=== PATIENT | male | born 1960 | race Caucasian/White ===

== ENCOUNTER 2017-06-09 21:12 | Emergency (ER) | payer OTHER, MEDICAID ==
[~2017-06-09] VITALS: Ht 185.4 cm; Wt 106.6 kg
[~2017-06-09 21:12] MED LIST: ADDERALL 10 MG10 MG PO; ADVAIR HFA 230M12 GM INH; AMLODIPINE BESY10 MG PO; AUGMENTIN 875875 MG PO; AZITHROMYCIN 2250 MG PO; CEFTIN 250 MG250 MG PO; CLARITIN10 M2 PO; COMBIVENT RESPIM4 GM INH; COREG25 MG PO; DUONEB 2.5-0.5 M3 ML INH; FLONASE 0.05%50 MCG NASAL; FUROSEMIDE 20 M20 M1 PO; HYDROCODON-ACE1 EAC5 PO; HYDROCODONE-AP1 EAC6 PO; KLOR-CON 1010 MEQ PO; LASIX 20 MG TAB20 MG PO; LEVAQUIN 500 M500 M2 PO; LEVAQUIN 750 M750 MG PO; LISINOPRIL20 MG PO; MOBIC7.5 MG PO; NICOTINE TRANSD21 M1 TRANSDERM; NORCO 10-325 T1 EACH PO; PREDNISONE 10 M10 MG PO; PROTONIX40 M1 PO; SINGULAIR 10 MG10 M1 PO; TESSALON PERLE100 MG PO; TOPROL XL25 MG PO; TRAMADOL 50 MG50 MG PO; VOLTAREN GEL 1100 G2 TOP
[2017-06-09] MEDS ORDERED: NORCO 10-325 T1 EACH PO (21:30)
[2017-06-09 22:04] LABS: ABSOLUTE EOSINOPHILS 0.3 thou/uL (0.0-0.7); ABSOLUTE LYMPHOCYTES 2.7 thou/uL (0.8-5.3); ABSOLUTE MONOCYTES 0.7 thou/uL (0.0-1.2); ABSOLUTE NEUTROPHILS 5.1 thou/uL (1.6-8.1); BASOPHILS 0.2 %; EOSINOPHILS 3.6 %; HEMATOCRIT 38.8 % (42.0-52.0); HEMOGLOBIN 12.7 gm/dL (14.0-18.0); LYMPHOCYTES 30.7 %; MCH 31.2 pg (26.0-34.0); MCHC 32.8 g/dL (28.0-37.0); MONOCYTES 7.6 %; MPV 7.9 fl. (7.2-11.1); NUCLEATED RBCS 0 /100WBC; PLATELET COUNT* 334 thou/uL (150-400); POLYS 57.9 %; RBC 4.08 mil/uL (4.50-6.00); RDW-CV 16.5 % (10.5-14.5); WBC 8.8 thou/uL (4.0-11.0)
[2017-06-09 22:19] LABS: ANION GAP 12 mmol/L (7-16); BUN 12 mg/dL (7-18); CHLORIDE 105 mmol/L (98-107); CO2 25 mmol/L (21-32); CREATININE 1.2 mg/dL (0.6-1.3); GLUCOSE 119 mg/dL (70-99); POTASSIUM 3.5 mmol/L (3.5-5.1); SODIUM 142 mmol/L (136-145)
[2017-06-09 22:23] LABS: ALBUMIN 3.4 g/dL (3.4-5.0); ALKALINE PHOSPHATASE 96 U/L (46-116); LIPASE 77 U/L (73-393); MAGNESIUM 2.1 mg/dL (1.8-2.4); NT-PRO BRAIN NAT PEPTIDE 438 pg/mL (<300); SGOT 20 U/L (15-37); SGPT 28 U/L (30-65); TOTAL BILIRUBIN 0.2 mg/dL (<0.1-1.0); TOTAL PROTEIN 6.8 g/dL (6.4-8.2); TROPONIN-I LEVEL <0.06 ng/mL (<0.06)
[2017-06-09] MEDS ORDERED: PREDNISONE50 MG PO (22:43)
[2017-06-09] MEDS ORDERED: ZPAK PO (22:43)
[2017-06-09 22:55] VITALS: BP 135/70
--- NOTE | 2017-06-10 13:13 | EKG ---
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: : 1960 Requested By: Blas Bradley Order Number: [id number] MD: Bari Esquivel Measurements Intervals [place] Rate: 96 P: 60 ND: 141 QRS: 61 QRSD: 109 T: 57 QT: 375 QTc: 474 Interpretive Statements Sinus rhythm Probable left atrial enlargement Compared to ECG 02/17/2017 14:13:47 Sinus tachycardia no longer present Ventricular premature complex(es) no longer present Electronically Signed On 06-10-2017 13:13:28 GAUGE MACHINE OPERATOR by Bari Esquivel [email or web address] <ELECTRONICALLY SIGNED> By: Bari Esquivel MD, [facility] 06/10/17 1313 22 22 Bari Esquivel MD, FACC /EPI
== END 2017-06-09 22:55 | disposition home or self-care (01) ==
LOC: M.ERS 21:12
PROVIDERS: Emergency Medicine Emergency Medical Services
DX: J44.1 Chronic obstructive pulmonary disease with (acute) exacerbation (principal); I10 Essential (primary) hypertension; G89.29 Other chronic pain; M25.562 Pain in left knee; M25.512 Pain in left shoulder; M25.579 Pain in unspecified ankle and joints of unspecified foot; F17.210 Nicotine dependence, cigarettes, uncomplicated; Z90.89 Acquired absence of other organs

== ENCOUNTER 2017-07-12 08:47 | Inpatient (IN) | payer OTHER, MEDICAID ==
[~2017-07-12] VITALS: Ht 185.4 cm; Wt 147.0 kg
[~2017-07-12 08:47] MED LIST changes: +PREDNISONE50 MG PO; +ZPAK PO
[2017-07-12 08:51] VITALS: BP 192/128
[2017-07-12 09:20] LABS: ABSOLUTE BASOPHILS 0.1 thou/uL (0.0-0.2); ABSOLUTE EOSINOPHILS 0.3 thou/uL (0.0-0.7); ABSOLUTE MONOCYTES 0.8 thou/uL (0.0-1.2); ABSOLUTE NEUTROPHILS 8.5 thou/uL (1.6-8.1); BASOPHILS 0.9 %; EOSINOPHILS 2.4 %; HEMATOCRIT 39.4 % (42.0-52.0); HEMOGLOBIN 12.8 gm/dL (14.0-18.0); LYMPHOCYTES 17.5 %; MCH 30.2 pg (26.0-34.0); MCHC 32.6 g/dL (28.0-37.0); MCV 92.7 fL (80.0-100.0); MONOCYTES 6.6 %; MPV 6.8 fl. (7.2-11.1); NUCLEATED RBCS 0 /100WBC; PLATELET COUNT* 358 thou/uL (150-400); POLYS 72.6 %; RBC 4.25 mil/uL (4.50-6.00); RDW-CV 16.9 % (10.5-14.5); WBC 11.7 thou/uL (4.0-11.0)
[2017-07-12 09:29] LABS: ANION GAP 9 mmol/L (7-16); BUN 16 mg/dL (7-18); CALCIUM 8.8 mg/dL (8.5-10.1); CHLORIDE 102 mmol/L (98-107); CO2 29 mmol/L (21-32); CREATININE 1.3 mg/dL (0.6-1.3); GLUCOSE 103 mg/dL (70-99); SODIUM 140 mmol/L (136-145)
[2017-07-12 09:39] LABS: ALBUMIN 3.5 g/dL (3.4-5.0); ALKALINE PHOSPHATASE 119 U/L (46-116); LIPASE 81 U/L (73-393); NT-PRO BRAIN NAT PEPTIDE 2231 pg/mL (<300); SGOT 16 U/L (15-37); SGPT 23 U/L (30-65); TOTAL BILIRUBIN 0.7 mg/dL (<0.1-1.0); TOTAL PROTEIN 6.8 g/dL (6.4-8.2); TROPONIN-I LEVEL <0.06 ng/mL (<0.06)
[2017-07-12 10:47] VITALS: BP 183/115
[2017-07-12 11:00] VITALS: BP 197/101
--- NOTE | 2017-07-12 11:00 | NUR ---
RECEIVED REOPRT. ASSUMED CARE OF PT AT 0730. VSS. CARDIAC MONITORING IN PLACE ST. ADMISSION AND HISTORY AND ASSESSMENT COMPLETED CHARTED. PT ALERT AND ORIENTED. PT ON 2L INITIALLY BUT REMOVED O2. PT DOES HAVE EXERTIONAL DYSPNEA. PT'S O2 SAT 94% ON RA. PT REPORTS BILATERAL LE PAIN. PT REPORTS HE TAKES HYDROCODONE FOR THIS NORMALLY. IV ABX INFUSING AT THIS TIME. PT OREINTED TO ROOM AND CALL LLIHGT. PT UP AD MACIEL IN ROOM. PT INFORMED OF PLAN OF CARE. PT COMMUNICATES UNDERSTANDING. CALL LIGHT IS WITHIN REACH. WILL CONTINUE TO MONITOR FOR DURATION OF SHIFT.
[2017-07-12 11:55] VITALS: BP 129/26
[2017-07-12 12:46] LABS: INFLUENZA A ANTIGEN None Detected (None Detect); INFLUENZA B ANTIGEN None Detected (None Detect)
[2017-07-12 13:44] LABS: BE 2.3 mmol/L (-2 to +3); HCO3 25.6 mmol/L (22.0-26.0); PCO2 35.7 mmHg (35.0-45.0); PO2 67.9 mmHg (75.0-100.0); pH 7.473 (7.340-7.450)
[2017-07-12] MEDS ORDERED: COREG25 MG PO (14:10)
[2017-07-12] MEDS ORDERED: SERTRALINE HCL50 MG PO (14:11)
[2017-07-12] MEDS ORDERED: MOBIC7.5 MG PO (14:12)
[2017-07-12 15:37] VITALS: BP 183/94
--- NOTE | 2017-07-12 16:01 | 2DMMODE ---
[place] [address] 2 D/M-MODE ECHOCARDIOGRAM Name: AKI VIEIRA Room: [address] IN [facility]#: [id number] Admission: 07/12/17 Attend Phys: Kwan Cohn, Discharge: Date of : 62 Date of Service: 07/12/17 1601 Report #: [id number] THIS REPORT FOR: //name// APPROVED REPORT Study performed: 07/12/2017 11:57:31 EXAM: Comprehensive 2D, Doppler, and color-flow Echocardiogram Patient Location: In-Patient Room #: 200 Status: routine BSA: 2.63 HR: 107 bpm BP: 129/26 mmHg Rhythm: NSR Other Information Technically limited study due to body habitus, body habitus. Indications Congestive Heart Failure COPD Dyspnea Echo Enhancing Agent Indication: Endocardial border delineation Agent(s) / Amount(s) Used: Optison 3 cc 2D Dimensions LVEF(%): 57.07 (>50%) IVSd: 12.35 (7-11mm) LVOT Diam: 23.76 (18-24mm) LVDd: 61.75 mm PWd: 11.63 (7-11mm) Ascending Ao: 37.97 (22-36mm) LVDs: 42.88 (25-40mm) Aortic Root: 38.63 mm Shultz's LVEF: 57.07 % Volumes Left Atrial Volume (Systole) LA ESV Index: 28.90 mL/m2 Aortic Valve AoV Peak Wilman.: 1.63 m/s AO Peak Gr.: 10.65 mmHg LVOT Max P[place]66 [place] [address] 2 D/M-MODE ECHOCARDIOGRAM Name: ISHAAKI Ariane Room: [address] IN [facility]#: [id number] Admission: 07/12/17 Attend Phys: Kwan Cohn, Discharge: Date of : 62 Date of Service: 07/12/17 1601 Report #: [id number] Mean Gr.: 6.36 mmHg LVOT Mean P.51 mmHg LVOT Max V: 1.29 m/s AO V2 VTI: 30.58 cm LVOT Mean V: 0.88 m/s AYLIN (VTI): 2.92 cm2 LVOT V1 VTI: 20.15 cm TDI Medial E' Wilman.: 0.15 m/s Lateral E' Wilman.: 0.18 m/s Pulmonary Valve PV Peak Wilman.: 1.27 m/s PV Peak Gr.: 6.49 mmHg Left Ventricle The left ventricle is normal size. There is normal LV segmental wall motion. Mild concentric left ventricular hypertrophy. Left ventricular systolic function is normal. LVEF is 50-55%. Transmitral Doppler flow pattern suggests impaired LV relaxation. Right Ventricle The right ventricle is normal size. The right ventricular systolic function is normal. Atria The left atrium size is normal. The right atrium size is normal. Aortic Valve The aortic valve is normal in structure. No aortic regurgitation is present. There is no aortic valvular stenosis. Mitral Valve The mitral valve is normal in structure. Trace mitral regurgitation. No evidence of mitral valve stenosis. Tricuspid Valve The tricuspid valve is normal in structure. There is no tricuspid valve regurgitation noted. Pulmonic Valve The pulmonary valve is normal in structure. There is no pulmonic valvular regurgitation. Great Vessels The aortic root is normal in size. IVC is normal in size and collapses with >50% [place] [address] 2 D/M-MODE ECHOCARDIOGRAM Name: AKI VIEIRA Room: [address]#: [id number] Admission: 07/12/17 Attend Phys: Kwan Cohn, Discharge: Date of : 62 Date of Service: 07/12/17 1601 Report #: [id number] Pericardium There is no pericardial effusion. <Conclusion> The left ventricle is normal size. Mild concentric left ventricular hypertrophy. Left ventricular systolic function is normal. LVEF is 50-55%. Transmitral Doppler flow pattern suggests impaired LV relaxation. Trace mitral regurgitation. <ELECTRONICALLY SIGNED> By: Tone Ford MD, FACC 07/12/17 1601 160 160 Tone Ford MD, FAC /INF
--- NOTE | 2017-07-12 16:28 | NUR ---
PT'S BP REMAINS ELEVATED. PT'S HOME MEDS VERIFIED WITH HIS PHARMACY. DR. NAVAS NOTIFIED OF MEDICATION UPDATE. ASKED DR. NAVAS IF PT'S LASIX NEEDED TO BE SCHEDULED OR PRN. DR. MOBLEY STATES HE WILL RE-EVALUATE IT IN THE AM. PT REMIANS ON RA. IV SALINE LOCKED. PT'S PAIN WELL MANAGED WITH PO PAIN MEDS. PT IS UP INDEPENDENTLY IN ROOM AND IN HALLWAY. PT PROGRESSING TOWARDS GOAL. PT REMAINS INFORMED OF PLAN OF CARE. CALL LIGHT IS WITHIN REACH. WILL CONTINUE TO MONTIOR FOR DURAITON OF SHFIT.
--- NOTE | 2017-07-12 16:36 | EKG ---
[place] [address] ELECTROCARDIOGRAM REPORT Name: AKI VIEIRA Room: [address] ADM IN [facility]#: [id number] Admission: 07/12/17 Attend Phys: Kwan Cohn MD Discharge: Date of : 62 Report #: [id number] THIS REPORT FOR: //name// [facility] ED Test Date: 2017-07-12 Test Time: 08:57:36 Pat Name: AKI VIEIRA Department: Room: [facility] Gender: M Basin Tender: STUDENT : 1960 Requested By: Aki Ochoa Order Number: [id number] MD: Tone Ford Measurements Intervals [place] Rate: 110 P: 63 MN: 150 QRS: 53 QRSD: 88 T: 50 QT: 344 QTc: 466 Interpretive Statements Sinus tachycardia Ventricular trigeminy Borderline ST elevation, anterolateral leads Baseline wander in lead(s) I,II,III,aVR,aVF,V1,V2,V3,V4,V5 Compared to ECG 06/09/2017 21:23:32 Ventricular premature complex(es) now present ST (T wave) deviation now present Electronically Signed On 07-12-2017 16:35:59 ENGINEERING OPERATOR by Tone Ford [email or web address] <ELECTRONICALLY SIGNED> By: Tone Ford MD, [facility] 07/12/17 1635 0857 0857 Tone Ford MD, [facility] /EPI
[2017-07-12 19:07] LABS: BE -0.3 mmol/L (-2 to +3); HCO3 23.9 mmol/L (22.0-26.0); PCO2 37.8 mmHg (35.0-45.0); PO2 83.6 mmHg (75.0-100.0); pH 7.419 (7.340-7.450)
[2017-07-12 19:16] LABS: ALBUMIN 3.7 g/dL (3.4-5.0); CREATININE 1.6 mg/dL (0.6-1.3); POTASSIUM 4.6 mmol/L (3.5-5.1); TOTAL BILIRUBIN 0.6 mg/dL (<0.1-1.0); TOTAL PROTEIN 7.5 g/dL (6.4-8.2)
[2017-07-12 19:20] VITALS: BP 176/89
[2017-07-12] MEDS ORDERED: [UNRECOGNIZED DRUG - OTHER] PO (20:08)
[2017-07-12] MEDS ORDERED: FLONASE 0.05%50 MCG INH (20:08)
[2017-07-13] VITALS: BP 152/108
[2017-07-13 03:25] VITALS: BP 151/111
[2017-07-13 05:14] LABS: HEMATOCRIT 42.2 % (42.0-52.0); HEMOGLOBIN 13.7 gm/dL (14.0-18.0); MCHC 32.6 g/dL (28.0-37.0); MCV 92.1 fL (80.0-100.0); MPV 7.7 fl. (7.2-11.1); NUCLEATED RBCS 0 /100WBC; PLATELET COUNT* 428 thou/uL (150-400); RBC 4.58 mil/uL (4.50-6.00); RDW-CV 17.3 % (10.5-14.5); WBC 11.2 thou/uL (4.0-11.0)
[2017-07-13 05:38] LABS: ANION GAP 9 mmol/L (7-16); BUN 23 mg/dL (7-18); CALCIUM 9.3 mg/dL (8.5-10.1); CHLORIDE 101 mmol/L (98-107); CO2 28 mmol/L (21-32); CREATININE 1.2 mg/dL (0.6-1.3); GLUCOSE 164 mg/dL (70-99); NT-PRO BRAIN NAT PEPTIDE 1680 pg/mL (<300); POTASSIUM 4.4 mmol/L (3.5-5.1); SODIUM 138 mmol/L (136-145); TROPONIN-I LEVEL <0.06 ng/mL (<0.06)
[2017-07-13 06:03] LABS: ABSOLUTE LYMPHOCYTES 0.9 thou/uL (0.8-5.3); ABSOLUTE MONOCYTES 0.1 thou/uL (0.0-1.2); ABSOLUTE NEUTROPHILS 10.2 thou/uL (1.6-8.1); ANISOCYTOSIS 1+; MACROCYTES 1+; PLATELET ESTIMATE INCREASED; POIKILOCYTOSIS 1+
--- NOTE | 2017-07-13 06:07 | NUR ---
ASSUMED CARE AT 1920, ASSESSMENT CHARTED. PATIENT ALERT/ORIENTED X4, SITTING UP IN BED. ON TELE, SR. WEARING OXYGEN 2L/NC, SOB NOTED WITH EXERTION, SATS 96%. REMOVING OXYGEN AT TIMES PRN. SL INTACT TO RIGHT FOREARM, FLUSHES WELL. UP AD MACIEL IN ROOM. VOIDING PER URINAL. DENIES NEEDS. STATES HAVING PAIN TO BILATERAL LEGS, DR. MCCAULEY ON FLOOR, ORDERS RECEIVED. MEDS PER MAR. HS SNACK GIVEN. BP ELEVATED, PRN MEDS GIVEN. REFUSING SCD'S. CALL LIGHT WITHIN REACH, ENCOURAGED TO CALL FOR NEEDS.
--- NOTE | 2017-07-13 06:11 | NUR ---
PATIENT PROGRESSING TOWARD GOALS. PATIENT ABLE TO REST SOME AND STATES THAT HIS BREATHING IS BETTER TOO, LESS EXPIRATORY WHEEZING NOTED. UP AD MACIEL. WILL MONITOR.
--- NOTE | 2017-07-13 07:15 | NUR ---
CHANGE OF SHIFT, BEDSIDE REPORT GIVEN ASSUMED PATIENT CARE PATIENT SEEN AT BEDSIDE, NO REQUESTS
[2017-07-13 08:00] VITALS: BP 139/75
[2017-07-13 12:00] VITALS: BP 149/96
--- NOTE | 2017-07-13 13:57 | NUR ---
CM ASSESSMENT; Pt is A&O. Resides at home with family. Independent with ADLS. Pt has home neb. No hx of HH or SNF. Goal is to return home once medically stable for dc. Following.
[2017-07-13 16:06] VITALS: BP 142/94
[2017-07-13 19:30] VITALS: BP 144/89
[2017-07-14 00:07] VITALS: BP 154/80
[2017-07-14 04:00] VITALS: BP 137/82
--- NOTE | 2017-07-14 05:04 | NUR ---
ASSUMED CARE AT 1930, ASSESSMENT CHARTED. PATIENT ALERT/ORIENTED X4, SITTING UP IN BED WATCHING TV. UP AD MACIEL IN ROOM. DENIES NEEDS. STATES HAVING PAIN TO HEAD/LEGS, RATES 10/10, MEDS PER MAR WITH PARTIAL RELIEF NOTED. REFUSING SCD'S. HS SNACK GIVEN. CALL LIGHT WITHIN REACH, ENCOURAGED TO CALL FOR NEEDS.
[2017-07-14 05:08] LABS: ABSOLUTE LYMPHOCYTES 0.6 thou/uL (0.8-5.3); ABSOLUTE MONOCYTES 0.4 thou/uL (0.0-1.2); ABSOLUTE NEUTROPHILS 17.2 thou/uL (1.6-8.1); BASOPHILS 0.1 %; HEMATOCRIT 39.1 % (42.0-52.0); HEMOGLOBIN 12.6 gm/dL (14.0-18.0); MCH 30.3 pg (26.0-34.0); MCHC 32.1 g/dL (28.0-37.0); MCV 94.2 fL (80.0-100.0); MONOCYTES 2.4 %; NUCLEATED RBCS 0 /100WBC; PLATELET COUNT* 360 thou/uL (150-400); POLYS 94.5 %; RBC 4.15 mil/uL (4.50-6.00); RDW-CV 17.1 % (10.5-14.5); WBC 18.2 thou/uL (4.0-11.0)
[2017-07-14 05:23] LABS: ALBUMIN 3.1 g/dL (3.4-5.0); CALCIUM 8.8 mg/dL (8.5-10.1); CREATININE 1.4 mg/dL (0.6-1.3); POTASSIUM 4.4 mmol/L (3.5-5.1); TOTAL BILIRUBIN 0.3 mg/dL (<0.1-1.0); TOTAL PROTEIN 6.5 g/dL (6.4-8.2)
--- NOTE | 2017-07-14 07:17 | NUR ---
PATIENT SITTING UP IN BED WITH RT AT BEDSIDE. REPORT GIVEN TO ONCOMING NURSE. WILL MONITOR.
[2017-07-14 08:40] VITALS: BP 119/90
[2017-07-14 12:00] VITALS: BP 131/61
--- NOTE | 2017-07-14 15:46 | NUR ---
RECEIVED REPORT. ASSUMED CARE OF PT AT 0730. PT A&0 X4. VSS. O2 SAT 95% ON RA. METALLURGICAL OR MATERIALS TECHNICIAN IN PLACE TRACING SR WITH OCCASIONAL PVC'S. AM ASSESSMENT AND VITALS COMPLETED CHARTED. IV SALINE LOCKED. PT REPORTS PAIN IN BILAT KNEES AND BACK. PT RECEIVED PO PAIN MEDICATION WITH PARTIAL RELIEF. PT STATES HE HAS CHRONIC PAIN. PT EATING AND DRINKING WITHOUT ISSUE. PT UP AD MACIEL TO BATHROOM, VOIDING WITHOUT ISSUE. BM X1. PT PROGRESSING TOWARDS GOALS. LOW FALL RISK PRECATUTIONS IN PLACE. CALL LIGHT IS WITHIN REACH. WILL CONTINUE TO MONITOR.
[2017-07-14 17:54] VITALS: BP 124/80
--- NOTE | 2017-07-14 19:38 | NUR ---
VSS. O2 SAT >90% ON RA. A&O X4. PATTERNMAKER PLASTER REMAINS IN PLACE WITH NO CHANGES THIS SHIFT. IV SALINE LOCKED. PT CONTINUES TO REPORT BILATERAL KNEE AND BACK PAIN; PO PAIN MEDICATION GIVEN WITH RELIEF, BUT PT REPORTS THE RELIEF IS "SHORT LIVED". PT EATING AND DRINKING WITHOUT ISSUE. UP AD MACIEL TO THE BATHROOM, VOIDING WITHOUT ISSUE. BLE REMAIN EDEMATOUS, 2+. PT PROGRESSING TOWARDS GOALS. LOW FALL RISK PRECAUTIONS ARE IN PLACE. CALL LIGHT IS WITHIN REACH. HOURLY ROUNDING PERFORMED.
[2017-07-14 19:40] VITALS: BP 156/89
[2017-07-15 00:04] VITALS: BP 162/89
[2017-07-15 04:00] VITALS: BP 149/76
[2017-07-15 05:18] LABS: ABSOLUTE LYMPHOCYTES 0.5 thou/uL (0.8-5.3); ABSOLUTE MONOCYTES 0.5 thou/uL (0.0-1.2); HEMATOCRIT 39.2 % (42.0-52.0); HEMOGLOBIN 12.5 gm/dL (14.0-18.0); MCH 30.1 pg (26.0-34.0); MCHC 31.9 g/dL (28.0-37.0); MCV 94.4 fL (80.0-100.0); MONOCYTES 2.9 %; MPV 7.9 fl. (7.2-11.1); NUCLEATED RBCS 0 /100WBC; PLATELET COUNT* 343 thou/uL (150-400); POLYS 94.1 %; RBC 4.15 mil/uL (4.50-6.00); RDW-CV 17.2 % (10.5-14.5)
[2017-07-15 05:25] LABS: ALBUMIN 3.2 g/dL (3.4-5.0); CALCIUM 8.6 mg/dL (8.5-10.1); CREATININE 1.2 mg/dL (0.6-1.3); POTASSIUM 4.8 mmol/L (3.5-5.1); TOTAL BILIRUBIN 0.3 mg/dL (<0.1-1.0); TOTAL PROTEIN 6.5 g/dL (6.4-8.2)
--- NOTE | 2017-07-15 06:44 | NUR ---
PT A&O X 4 CALM COOPERITVE. UP ADLIB. SR ON THE MONITOR. PAIN IN JOINTS GIVEN MEDICATION WITH PARTIAL RELEIF NOTED. RA. VITALS WNL. HOURLY ROUNDING FOR SAFEY.
[2017-07-15 08:15] VITALS: BP 163/85
--- NOTE | 2017-07-15 10:27 | NUR ---
RECEIVED RPEORT. ASSUMED CARE OF PT AT 0730. PT A&OX4. VSS. O2 SAT 94% ON RA. PT LUNGS ARE WHEEZY THROUGHOUT; PT SHOWING EXERTIONAL DYSPNEA. PLAYBACK OPERATOR IN PLACE TRACING SR. AM ASSESSMENT AND VITALS COMPLETED CHARTED. IV SALINE LOCKED. PT REPORTS KNEE AND BACK PAIN AT 10/10, RECEIVED PO PAIN MEDICATION WITH PARTIAL RELIEF THIS AM. PT STATES HE FEELS READY TO DISCHARGE. PT INFORMED OF PLAN OF CARE, PT COMMUNICATES UNDERSTANDING. PT EATING AND DRINKING WITHOUT ISSUE. PT UP AD MACIEL TO THE BATHROOM TO VOID, NO ISSUES. BLE EDEMA 2+ NOTED, BUT PT IS LESS EDEMATOUS THAN YESTERDAY. LOW FALL RISK PRECATUTIONS ARE IN PLACE. CALL LIGHT IS WITHIN REACH. WILL CONTINUE TO MONITOR.
[2017-07-15] MEDS ORDERED: LASIX 40 MG TAB40 M1 PO (11:06)
[2017-07-15] MEDS ORDERED: ZITHROMAX250 MG PO (11:11)
[2017-07-15] MEDS ORDERED: KEFLEX500 M1 PO (11:12)
[2017-07-15] MEDS ORDERED: PREDNISONE 10 M10 MG PO (11:19)
[2017-07-15] MEDS ORDERED: NORCO 10-325 T1 EAC1 PO (11:20)
[2017-07-15 11:26] VITALS: BP 163/85
[2017-07-15 11:58] VITALS: BP 169/89
[2017-07-15] MEDS ORDERED: SINGULAIR 10 MG10 M1 PO (12:23)
--- NOTE | 2017-07-15 12:44 | NUR ---
DISCHARGE ORDERS RECIEVED. DISCHARGE COMPLETED CHARTED. DISCHARGE SUMMARY AND CARE NOTES GONE OVER WITH THE PT, PT COMMUNICATES UNDERSTANDING. SCRIPTS GIVEN. CARE NOTES GIVEN. IV AND TELEPHONE DIRECTORY DISTRIBUTOR DRIVER REMOVED. VSS AT TIME OF DC. PT EATING AND DRINKIN WITHOUT ISSUE; VOIDING WITHOUT ISSUE. ALL BELONGINGS GATHERED AND SENT WITH THE PT. PT LEFT UNIT IN WC WITH NURSING STAFF. PT LEFT HOSPITAL WITH FAMILY IN CAR.
== END 2017-07-15 12:46 | disposition home or self-care (01) | DRG 871 ==
LOC: M.ERS 08:47 → M.2W 10:01 → M.TBA-ER 10:01 → M.2W 11:17
PROVIDERS: Emergency Medicine; Internal Medicine; ADMIT Internal Medicine
PROC: B24BZZ4 Ultrasonography of Heart with Aorta, Transesophageal (ICD-10-PCS; principal; 2017-07-12)
DX: A41.9 Sepsis, unspecified organism (principal); J18.9 Pneumonia, unspecified organism; J96.01 Acute respiratory failure with hypoxia; J44.1 Chronic obstructive pulmonary disease with (acute) exacerbation; J44.0 Chronic obstructive pulmonary disease with (acute) lower respiratory infection; Z68.41 Body mass index [BMI] 40.0-44.9, adult; I50.9 Heart failure, unspecified; J20.9 Acute bronchitis, unspecified; I11.0 Hypertensive heart disease with heart failure; E66.01 Morbid (severe) obesity due to excess calories; M19.90 Unspecified osteoarthritis, unspecified site; F17.210 Nicotine dependence, cigarettes, uncomplicated; Z79.899 Other long term (current) drug therapy; Z82.49 Family history of ischemic heart disease and other diseases of the circulatory system; Z82.5 Family history of asthma and other chronic lower respiratory diseases

== ENCOUNTER 2018-03-16 09:15 | Emergency (ER) | payer OTHER, MEDICAID ==
[~2018-03-16] VITALS: Ht 185.4 cm; Wt 145.2 kg
[~2018-03-16 09:15] MED LIST changes: +FLONASE 0.05%50 MCG INH; +KEFLEX500 M1 PO; +LASIX 40 MG TAB40 M1 PO; +NORCO 10-325 T1 EAC1 PO; +SERTRALINE HCL50 MG PO; +ZITHROMAX250 MG PO; +[UNRECOGNIZED DRUG - OTHER] PO
[2018-03-16 09:49] LABS: ABSOLUTE BASOPHILS 0.1 thou/uL (0.0-0.2); ABSOLUTE EOSINOPHILS 0.3 thou/uL (0.0-0.7); ABSOLUTE LYMPHOCYTES 1.4 thou/uL (0.8-5.3); ABSOLUTE MONOCYTES 0.7 thou/uL (0.0-1.2); ABSOLUTE NEUTROPHILS 5.3 thou/uL (1.6-8.1); BASOPHILS 0.7 %; EOSINOPHILS 3.7 %; HEMATOCRIT 37.9 % (42.0-52.0); HEMOGLOBIN 12.4 gm/dL (14.0-18.0); LYMPHOCYTES 17.5 %; MCH 31.2 pg (26.0-34.0); MCHC 32.7 g/dL (28.0-37.0); MCV 95.4 fL (80.0-100.0); MONOCYTES 9.6 %; MPV 7.6 fl. (7.2-11.1); NUCLEATED RBCS 0 /100WBC; PLATELET COUNT* 307 thou/uL (150-400); POLYS 68.5 %; RBC 3.97 mil/uL (4.50-6.00); RDW-CV 17.8 % (10.5-14.5); WBC 7.7 thou/uL (4.0-11.0)
[2018-03-16 09:54] LABS: CALCIUM 8.5 mg/dL (8.5-10.1); CREATININE 1.4 mg/dL (0.6-1.3); POTASSIUM 3.7 mmol/L (3.5-5.1)
[2018-03-16 09:59] LABS: ALBUMIN 3.1 g/dL (3.4-5.0); TOTAL BILIRUBIN 0.5 mg/dL (<0.1-1.0); TOTAL PROTEIN 6.5 g/dL (6.4-8.2)
[2018-03-16] MEDS ORDERED: NAPROSYN500 M1 PO (10:22)
[2018-03-16] MEDS ORDERED: PERCOCET 5-3251 EACH PO (10:22)
[2018-03-16 10:28] VITALS: BP 138/80
== END 2018-03-16 10:29 | disposition home or self-care (01) ==
LOC: M.ERS 09:15
PROVIDERS: Emergency Medicine
DX: S20.212A Contusion of left front wall of thorax, initial encounter (principal); R10.32 Left lower quadrant pain; I10 Essential (primary) hypertension; J44.9 Chronic obstructive pulmonary disease, unspecified; G89.29 Other chronic pain; M25.562 Pain in left knee; M25.512 Pain in left shoulder; M25.579 Pain in unspecified ankle and joints of unspecified foot; W06.XXXA Fall from bed, initial encounter; Y93.89 Activity, other specified; Y92.89 Other specified places as the place of occurrence of the external cause; Y99.8 Other external cause status

== ENCOUNTER 2019-10-06 11:28 | Inpatient (IN) | payer OTHER, MEDICAID ==
[~2019-10-06] VITALS: Ht 185.4 cm; Wt 151.5 kg
[~2019-10-06 11:28] MED LIST changes: +ATIVAN1 M1 PO; -DUONEB 2.5-0.5 M3 ML INH; +IPRAT-ALBUT 0.5-3 ML INH; +NAPROSYN500 M1 PO; +PERCOCET 5-3251 EACH PO; +PRENATAL PO; +TRAZODONE HCL100 MG PO; +VITAMIN B-1100 M1 PO; +WELLBUTRIN SR150 MG PO
[2019-10-06 11:35] VITALS: BP 157/72
[2019-10-06 12:31] LABS: ABSOLUTE BASOPHILS 0.1 thou/uL (0.0-0.2); ABSOLUTE EOSINOPHILS 0.5 thou/uL (0.0-0.7); ABSOLUTE LYMPHOCYTES 1.8 thou/uL (0.8-5.3); ABSOLUTE MONOCYTES 0.7 thou/uL (0.0-1.2); ABSOLUTE NEUTROPHILS 8.4 thou/uL (1.6-8.1); BASOPHILS 0.9 %; EOSINOPHILS 4.2 %; HEMATOCRIT 38.4 % (42.0-52.0); HEMOGLOBIN 13.1 gm/dL (14.0-18.0); LYMPHOCYTES 15.8 %; MCH 34.5 pg (26.0-34.0); MCHC 34.2 g/dL (28.0-37.0); MONOCYTES 6.4 %; MPV 7.6 fl. (7.2-11.1); NUCLEATED RBCS 0 /100WBC; PLATELET COUNT* 289 thou/uL (150-400); POLYS 72.7 %; RDW-CV 15.5 % (10.5-14.5); WBC 11.6 thou/uL (4.0-11.0)
[2019-10-06 13:07] LABS: ALBUMIN 3.2 g/dL (3.4-5.0); CALCIUM 8.4 mg/dL (8.5-10.1); CREATININE 1.5 mg/dL (0.6-1.3); MAGNESIUM 1.6 mg/dL (1.8-2.4); POTASSIUM 3.2 mmol/L (3.5-5.1); TOTAL BILIRUBIN 0.6 mg/dL (<0.1-1.0); TOTAL PROTEIN 7.1 g/dL (6.4-8.2)
[2019-10-06 14:39] VITALS: BP 117/66
[2019-10-06 15:57] VITALS: BP 186/92
[2019-10-06 20:00] VITALS: BP 138/74
[2019-10-07] VITALS: BP 144/86
[2019-10-07 04:50] VITALS: BP 158/97
--- NOTE | 2019-10-07 05:13 | NUR ---
PT A&O, SAT 93-94% ON RA. AFEBRILE. PT DENIED N/V OR DIARRHEA. MEDS GIVEN ORDERED. PAIN MANAGED WITH NORCO. PT UP WITH STANDBY ASSIST. PT TOOK HIS HEART MONITOR OFF AND REFUSED. EDUCATION GIVEN, MONITOR REAPPLIED. PT WHEEZY, SOA WITH ACTIVITY. BREATHING TREATMENT Q4H. ELECTROLYTE REPLACEMENT IN PROGRESS. COVID PENDING. WILL CONTINUE TO MONITOR.
[2019-10-07 05:49] LABS: CALCIUM 8.6 mg/dL (8.5-10.1); CREATININE 1.5 mg/dL (0.6-1.3)
[2019-10-07 05:51] LABS: POTASSIUM 4.7 mmol/L (3.5-5.1)
[2019-10-07 05:53] LABS: HEMATOCRIT 37.9 % (42.0-52.0); HEMOGLOBIN 12.9 gm/dL (14.0-18.0); MCH 34.8 pg (26.0-34.0); MCHC 34.1 g/dL (28.0-37.0); MCV 102.2 fL (80.0-100.0); MPV 8.3 fl. (7.2-11.1); NUCLEATED RBCS 0 /100WBC; PLATELET COUNT* 301 thou/uL (150-400); RBC 3.71 mil/uL (4.50-6.00); RDW-CV 15.6 % (10.5-14.5); WBC 15.7 thou/uL (4.0-11.0)
[2019-10-07 06:36] LABS: ABSOLUTE LYMPHOCYTES 0.8 thou/uL (0.8-5.3); ABSOLUTE MONOCYTES 0.6 thou/uL (0.0-1.2); ABSOLUTE NEUTROPHILS 14.3 thou/uL (1.6-8.1); PLATELET ESTIMATE ADEQUATE
[2019-10-07 09:08] VITALS: BP 173/105
--- NOTE | 2019-10-07 10:41 | NUR ---
ASSESSMENT COMPLETED DOCUMENTED THIS MORNING. PATIENT IV INFILTRATED, UNABLE TO FLUSH AND EDEMA NOTED. SITE DCD AT 0830. BGL 175, PATIENT STATES HE HAS A LARGE APPETITE...."KEEP THE FOOD COMING." BILATERAL WHEEZES AND VISIBLY DYSPNEIC WITH CONVERSATION. STATES HE HAS NOT SLEPT FOR 5 DAYS. RETURNED TO PATIENT'S ROOM TO REINSERT IV, PATIENT NOTED TO BE SLEEPING SOUNDLY. NEGATIVE COVID RESULTS REC'D VERBALLY FROM PARAM IN LAB, REPORTED TO DR. NAVAS WITH VERBAL ORDER REC'D TO TRANSFER TO TELEMETRY. PHOTO OPTICS TECHNICIAN NOTIFIED, ORDERS PUT IN TO TRANSFER AND ROOM 214 REC'D.
--- NOTE | 2019-10-07 11:05 | EKG ---
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 Warehouse Manager: : 1960 Requested By: Blas Bradley Order Number: [id number] MD: Kalen Reyes Measurements Intervals [place] Rate: 113 P: 68 PA: 137 QRS: 59 QRSD: 99 T: 73 QT: 341 QTc: 468 Interpretive Statements Sinus tachycardia Ventricular premature complex Baseline wander in lead(s) V1,V2,V6 Compared to ECG 06/25/2018 13:58:46 Ventricular premature complex(es) now present Sinus rate has increased T-wave abnormality no longer present Possible ischemia no longer present Electronically Signed On 10-07-2019 11:03:42 CDT by Kalen Reyes [email or web address] <ELECTRONICALLY SIGNED> By: Kalen Reyes MD, [facility] 10/07/19 1103 1133 1133 Kalen Reyes MD, [facility] /EPI
--- NOTE | 2019-10-07 12:59 | NUR ---
1245 PATIENT TRANSFERRED TO ROOM 214 VIA BED WITH ALL BELONGINGS. REPORT GIVEN TO BRADLEY LEA. PATIENT REC'D 2 HYDROCODONE 5/325MG TABS PRIOR TO TRANSFER R/T GENERALIZED PAIN AT 8/10. BGL 105 AND LUNCH EATEN PRIOR TO TRANSFER.
[2019-10-07 16:43] VITALS: BP 121/50
[2019-10-07 20:00] VITALS: BP 109/63
[2019-10-07 23:55] VITALS: BP 107/66
[2019-10-08 00:19] LABS: AMP/METHAMP Negative (Negative); BARBITURATES Negative (Negative); BENZODIAZEPINES Negative (Negative); COCAINE Negative (Negative); METHADONE Negative (Negative); OPIATES POSITIVE (Negative); PCP Negative (Negative); THC Negative (Negative)
[2019-10-08 05:15] VITALS: BP 151/94
[2019-10-08 07:30] VITALS: BP 184/99
--- NOTE | 2019-10-08 07:47 | NUR ---
PT A+O X4. PAIN MEDICATION GIVEN X 2 FOR CHRONIC ARTHRITIS. PT VERY SOA WITH EXERTION. SATS LOW TO MID 90'S ON ROOM AIR @ REST. THIS AM PT REPORTED DIFFICULTY SLEEPING DURING THE NIGHT. NOTIFIED DAY RN.
[2019-10-08 12:19] VITALS: BP 172/80
--- NOTE | 2019-10-08 14:25 | NUR ---
Nutrition: Pt admitted with COPD exac, possible COVID. He is on inhaled steroids. BG is running high 200s. Albumin 3.2. 2gm Na diet is ordered - RD added a CHO count to it d/t elevated BG. Wt is within usual range, currently 334#. NO other nutrition interventions at this time. Mild risk.
--- NOTE | 2019-10-08 15:47 | NUR ---
Pt was sound asleep when CM went to assess x2, will f/u later
[2019-10-08 16:00] VITALS: BP 161/88
--- NOTE | 2019-10-08 19:39 | NUR ---
RECEIVED REPORT FROM HOLLY LEA. ASSUMED CARE OF PT AROUND O715. PT A&OX4. AM ASSESSMENT AND VITALS COMPLETED CHARTED. MEDS PER EMAR. INCOME TAX ADMINISTRATOR IN PLACE TRACING SR WITH PVC'S. PT REPORTED GENERALIZED PAIN AND RECEIVED PO PAIN MEDICATION WITH PARTIAL RELIEF. PT VISITED WITH FAMILY ON THE PHONE. TOLERATING DIET. UP AD MACIEL. PT CURRENTLY SITTING UP IN BED WATCHING TV. CALL LIGHT IS WITHIN REACH. HOURLY ROUNDING PERFORMED. LOW FALL RISK PRECAUTIONS IN PLACE.
[2019-10-08 20:00] VITALS: BP 134/61
[2019-10-08 23:59] VITALS: BP 172/89
[2019-10-09 04:00] VITALS: BP 169/71
--- NOTE | 2019-10-09 07:05 | NUR ---
PT EXHIBITED LESS SOA WITH EXERTION THIS SHIFT OBSERVED BY THIS RN PRIOR LOADERS. PAIN MEDICATION GIVEN X 2. PT WAS OBSERVED RESTING/SLEEPING MORE THIS LOADERS ALSO. CALL LIGHT IN REACH. HOURLY ROUNDING FOR SAFETY.
[2019-10-09 08:00] VITALS: BP 146/79
--- NOTE | 2019-10-09 09:08 | NUR ---
Pt is A&O. Resides at home with his aunt. Independent. Pt has a home neb, no o2. No other DME. No hx of HH or SNF. Pt [facility] dc [facility] f:[phone]. Anticipate dc to home today.
[2019-10-09 09:40] LABS: ABSOLUTE LYMPHOCYTES 1.4 thou/uL (0.8-5.3); ABSOLUTE MONOCYTES 0.7 thou/uL (0.0-1.2); ABSOLUTE NEUTROPHILS 14.4 thou/uL (1.6-8.1); BASOPHILS 0.2 %; HEMATOCRIT 39.1 % (42.0-52.0); LYMPHOCYTES 8.6 %; MCH 34.2 pg (26.0-34.0); MCHC 33.2 g/dL (28.0-37.0); MCV 103.1 fL (80.0-100.0); MONOCYTES 4.5 %; MPV 8.4 fl. (7.2-11.1); NUCLEATED RBCS 0 /100WBC; PLATELET COUNT* 312 thou/uL (150-400); POLYS 86.7 %; RBC 3.79 mil/uL (4.50-6.00); RDW-CV 15.7 % (10.5-14.5); WBC 16.6 thou/uL (4.0-11.0)
[2019-10-09 09:52] LABS: CALCIUM 8.8 mg/dL (8.5-10.1); CREATININE 1.3 mg/dL (0.6-1.3); POTASSIUM 4.9 mmol/L (3.5-5.1)
[2019-10-09] MEDS ORDERED: AUGMENTIN 875-1 EACH PO (11:29)
[2019-10-09 11:30] VITALS: BP 171/92
[2019-10-09] MEDS ORDERED: PROTONIX40 M1 PO (11:36)
[2019-10-09] MEDS ORDERED: PREDNISONE 10 M10 M1 PO (11:38)
[2019-10-09 12:02] VITALS: BP 146/79
--- NOTE | 2019-10-09 20:33 | NUR ---
ASSUMED CARE OF PT AROUND 0730. AOX4, VSS, PLEASANT AFFECT, SR ON MONITOR. ANXIOUS TO GO HOME. PAIN UNDER CONTROL. DISCHARGE SUMMARY, MEDICATIONS, ACTIVITY AND DIET RESTRICTIONS EXPLAINED PER TACO CHARGE NURSE. IV DCED. PT LEFT UNIT BY WC BY NURSING STAFF. HOURLY ROUNDING PERFORMED.
== END 2019-10-09 13:05 | disposition home or self-care (01) | DRG 682 ==
LOC: M.ERS 11:28 → M.TBA-ER 13:46 → M.ORTHSURG 13:46 → M.2W 13:46 → M.ORTHSURG 14:59 → M.2W 10-07 12:45
PROVIDERS: Emergency Medicine Emergency Medical Services; ADMIT Internal Medicine
DX: N17.9 Acute kidney failure, unspecified (principal); J96.00 Acute respiratory failure, unspecified whether with hypoxia or hypercapnia; R65.11 Systemic inflammatory response syndrome (SIRS) of non-infectious origin with acute organ dysfunction; J44.1 Chronic obstructive pulmonary disease with (acute) exacerbation; J44.0 Chronic obstructive pulmonary disease with (acute) lower respiratory infection; I10 Essential (primary) hypertension; G89.29 Other chronic pain; F17.210 Nicotine dependence, cigarettes, uncomplicated; E87.6 Hypokalemia; J20.9 Acute bronchitis, unspecified; R73.9 Hyperglycemia, unspecified; T38.0X5A Adverse effect of glucocorticoids and synthetic analogues, initial encounter; Z20.828 Contact with and (suspected) exposure to other viral communicable diseases; Y92.89 Other specified places as the place of occurrence of the external cause; Z79.899 Other long term (current) drug therapy

== ENCOUNTER 2020-01-09 22:02 | Inpatient (IN) | payer OTHER, MEDICAID ==
[~2020-01-09] VITALS: Ht 188 cm; Wt 138.3 kg
[~2020-01-09 22:02] MED LIST changes: +AUGMENTIN 875-1 EACH PO; +PREDNISONE 10 M10 M1 PO
[2020-01-09 22:25] VITALS: BP 137/97
[2020-01-09 22:58] LABS: HEMATOCRIT 36.3 % (42.0-52.0)
[2020-01-09 23:00] LABS: HEMOGLOBIN 12.2 gm/dL (14.0-18.0); MCH 34.1 pg (26.0-34.0); MCHC 33.6 g/dL (28.0-37.0); MCV 101.6 fL (80.0-100.0); MPV 7.6 fl. (7.2-11.1); NUCLEATED RBCS 0 /100WBC; PLATELET COUNT* 408 thou/uL (150-400); RBC 3.58 mil/uL (4.50-6.00); RDW-CV 17.7 % (10.5-14.5); WBC 19.2 thou/uL (4.0-11.0)
[2020-01-09 23:07] LABS: CALCIUM 8.5 mg/dL (8.5-10.1); CREATININE 1.8 mg/dL (0.6-1.3); POTASSIUM 4.9 mmol/L (3.5-5.1)
[2020-01-09 23:08] LABS: PROTIME 10.4 Seconds (9.20-11.50)
[2020-01-09 23:19] LABS: ALBUMIN 3.5 g/dL (3.4-5.0); TOTAL BILIRUBIN 0.6 mg/dL (<0.1-1.0); TOTAL PROTEIN 6.2 g/dL (6.4-8.2)
[2020-01-09 23:39] LABS: ABSOLUTE BASOPHILS 0.2 thou/uL (0.0-0.2); ABSOLUTE MONOCYTES 0.8 thou/uL (0.0-1.2); ABSOLUTE NEUTROPHILS 17.3 thou/uL (1.6-8.1); PLATELET ESTIMATE INCREASED
[2020-01-09 23:40] LABS: ANISOCYTOSIS Occasional; CLUMPED PLTS FEW; TOXIC GRANULATION 1+
[2020-01-10 01:24] LABS: URINE BLOOD NEGATIVE (Negative); URINE CLARITY CLEAR; URINE COLOR DARK YELLOW; URINE GLUCOSE-RANDOM NEGATIVE (Negative); URINE KETONES TRACE (Negative); URINE LEUKOCYTES-REFLEX NEGATIVE (Negative); URINE NITRITE-REFLEX NEGATIVE (Negative); URINE PROTEIN TRACE (Negative); URINE UROBILINOGEN 0.2 E.U./dl (0.2-1.0)
[2020-01-10 01:25] LABS: ICTOTEST (BILI CONFIRMATORY) Negative (Negative); URINE BILIRUBIN 1+ (Negative)
[2020-01-10 02:39] LABS: BE 1.2 mmol/L (-2 to +3); PCO2 44.5 mmHg (35.0-45.0); PO2 107.5 mmHg (75.0-100.0); pH 7.392 (7.340-7.450)
[2020-01-10 04:00] VITALS: BP 137/65
[2020-01-10 04:10] VITALS: BP 115/57
[2020-01-10] MEDS ORDERED: CARAFATE 1 GM TA1 GM PO (06:33)
[2020-01-10] MEDS ORDERED: ROBAXIN 750 MG750 MG PO (06:34)
[2020-01-10] MEDS ORDERED: ONDANSETRON ODT8 MG PO (06:38)
--- NOTE | 2020-01-10 07:17 | NUR ---
RECEIVED PATIENT REPORT FROM ER NURSE RAY AT 0102. PATIENT BROUGHT TO UNIT AT 0130. ASSESSMENTS COMPLETED CHARTED. CARDIAC MONITORING IN PLACE. PATIENT ORIENTED TO UNIT, ROOM, BED, CALL-LIGHT, AND HOSPITAL POLICY. BED LOCKED AND IN LOWEST POSITION. FALL PRECAUTIONS IN PLACE FOR PATIENT SAFETY. HOURLY ROUNDING IN PLACE FOR PATIENT SAFETY. CLWR.
[2020-01-10 08:15] VITALS: BP 166/68
[2020-01-10 12:00] VITALS: BP 152/100
--- NOTE | 2020-01-10 12:40 | EKG ---
[place] [address] ELECTROCARDIOGRAM REPORT Name: AKI VIEIRA Room: [address] ADM IN .R.#: [id number] Admission: 01/10/20 Attend Phys: Abdifatah Alarcon Discharge: Date of : 62 Date of Service: 01/09/20 2219 Report #: [id number] THIS REPORT FOR: //name// [facility] ED Test Date: 2020-01-09 Test Time: 22:19:33 Pat Name: AKI VIEIRA Department: Room: [facility] Gender: M Research Interviewer: MR : 1960 Requested By: Kristin Omalley Order Number: [id number] MD: Kalen Reyes Measurements Intervals [place] Rate: 109 P: 64 DC: 133 QRS: 56 QRSD: 116 T: 66 QT: 361 QTc: 487 Interpretive Statements Sinus tachycardia Multiple ventricular premature complexes Nonspecific intraventricular conduction delay Compared to ECG 10/06/2019 11:33:15 Intraventricular conduction delay now present PVCs are noted Electronically Signed On 01-10-2020 12:40:17 CDT by Kalen Reyes [email or web address] <ELECTRONICALLY SIGNED> By: Kalen Reyes MD, [facility] 01/10/20 1240 2219 2219 Kalen Reyes MD, [facility] /EPI
--- NOTE | 2020-01-10 15:08 | NUR ---
Pt is A&O. Resides at home with his aunt. No DME. No hx of o2. Hx of HH. No hx of SNF. Goal is home at dc. Anticipate dc tomorrow. CM to f/u on decision for HH tomorrow.
[2020-01-10 16:51] VITALS: BP 104/83
--- NOTE | 2020-01-10 18:25 | NUR ---
I ASSUMED CARE OF THE PATIENT AT 0700. HE IS ALERT AND ORIENTED X4 AND IS UP WITH ASSIST OF 1 TO THE COMMODE. BED IS IN THE LOW LOCKED POSITION AND CALL LIGHT IS IN REACH. HOURLY ROUNDING IS COMPLETED AND PATIENT NEEDS ARE MET. PAIN IS PARTIALLY RELEIVED WITH PRN MEDS. NEW IV IS STARTED FOR ANTIBIOTIC TREATMENT. RT WAS CALLED MULTIPLE TIMES FOR PRN BREATHING TREATMENTS. HE IS GROUCHY AND DEMANDING. WILL CONTINUE TO MONITOR.
[2020-01-10 19:30] VITALS: BP 150/96
[2020-01-11] VITALS: BP 179/80
[2020-01-11 04:00] VITALS: BP 136/69
--- NOTE | 2020-01-11 06:45 | NUR ---
Pt alert and oriented. VSS on RA. Meds given per emar. Pain med given this shift. Bruising to face from previous fall. Pt can be restless and anxious. Bendaryl given for anxiety. Pt able to void via urinal independently. Encouraged to call when needing assistance. Call light within reach. Will continue to monitor.
[2020-01-11 07:50] VITALS: BP 153/100
--- NOTE | 2020-01-11 11:40 | 2DMMODE ---
[place] [address] 2 D/M-MODE ECHOCARDIOGRAM Name: AKI VIEIRA Room: [address] IN [facility]#: [id number] Admission: 01/10/20 Attend Phys: Abdifatah Alarcon Discharge: Date of : 62 Date of Service: 01/11/20 1140 Report #: [id number] THIS REPORT FOR: cc: ANDREW BOWSER MD, HEATHER L. MD Holkins, John M. MD [facility] ~ APPROVED REPORT Study performed: 01/11/2020 10:45:25 EXAM: Comprehensive 2D, Doppler, and color-flow Echocardiogram Patient Location: In-Patient Room #: 209 Status: routine BSA: 2.56 HR: 89 bpm BP: 136/69 mmHg Rhythm: NSR Other Information Study Quality: Good Indications COPD Dyspnea 2D Dimensions IVSd: 11.76 (7-11mm) LVOT Diam: 25.16 (18-24mm) LVDd: 53.97 mm PWd: 9.24 (7-11mm) Ascending Ao: 37.05 (22-36mm) LVDs: 42.04 (25-40mm) Aortic Root: 39.13 mm Volumes Left Atrial Volume (Systole) LA ESV Index: 26.70 mL/m2 Aortic Valve AoV Peak Wilman.: 1.53 m/s AO Peak Gr.: 9.41 mmHg LVOT Max P.90 mmHg AO Mean Gr.: 5.45 mmHg LVOT Mean P.42 mmHg LVOT Max V: 1.11 m/s AO V2 VTI: 28.56 cm LVOT Mean V: 0.72 m/s AYLIN (VTI): 3.94 cm2 LVOT V1 VTI: 22.65 [place] [address] 2 D/M-MODE ECHOCARDIOGRAM Name: AKI VIEIRA Room: [address]#: [id number] Admission: 01/10/20 Attend Phys: Abdifatah Alarcon Discharge: Date of : 62 Date of Service: 01/11/20 1140 Report #: [id number] TDI Medial E' Wilman.: 0.14 m/s Lateral E' Wilman.: 0.15 m/s Pulmonary Valve PV Peak Wilman.: 1.05 m/s PV Peak Gr.: 4.45 mmHg Tricuspid Valve RAP Estimate: 5.00 mmHg TR Peak Gr.: 32.44 mmHg RVSP: 37.00 mmHg PA Pressure: 37.00 mmHg Left Ventricle The left ventricle is normal size. There is normal LV segmental wall motion. There is normal left ventricular wall thickness. Left ventricular systolic function is normal. The left ventricular ejection fraction is within the normal range. LVEF is 55-60%. Grade I - abnormal relaxation pattern. Right Ventricle The right ventricle is normal size. The right ventricular systolic function is normal. Atria The left atrium size is normal. The right atrium size is normal. Aortic Valve The aortic valve is normal in structure. No aortic regurgitation is present. There is no aortic valvular stenosis. Mitral Valve The mitral valve is normal in structure. Trace mitral regurgitation. No evidence of mitral valve stenosis. Tricuspid Valve The tricuspid valve is normal in structure. Mild tricuspid regurgitation. Mild pulmonary hypertension. Pulmonic Valve The pulmonary valve is normal in structure. Trace pulmonic regurgitation. Great Vessels The aortic root is normal in size. IVC [place] [address] 2 D/M-MODE ECHOCARDIOGRAM Name: AKI VIEIRA Room: [address] IN [facility]#: [id number] Admission: 01/10/20 Attend Phys: Abdifatah Alarcon Discharge: Date of : 62 Date of Service: 01/11/20 1140 Report #: [id number] collapses >50% with inspiration. Pericardium There is no pericardial effusion. <Conclusion> The left ventricle is normal size. There is normal left ventricular wall thickness. Left ventricular systolic function is normal. The left ventricular ejection fraction is within the normal range. LVEF is 55-60%. Grade I - abnormal relaxation pattern. The right ventricle is normal size. The left atrium size is normal. The aortic valve is normal in structure. The mitral valve is normal in structure. Trace mitral regurgitation. The tricuspid valve is normal in structure. Mild tricuspid regurgitation. Mild pulmonary hypertension. IVC is normal in size and collapses >50% with inspiration. There is no pericardial effusion. There is normal LV segmental wall motion. <ELECTRONICALLY SIGNED> By: Kalen Reyes MD, FACC 01/11/20 1140 1140 1140 Kalen Reyes MD, FACC /INF
[2020-01-11 11:58] VITALS: BP 156/90
--- NOTE | 2020-01-11 12:50 | NUR ---
Anticipate dc in 1-2 days. Pt continues on IVABX. O2 as needed.
[2020-01-11 13:26] LABS: HEMATOCRIT 37.8 % (42.0-52.0); HEMOGLOBIN 12.7 gm/dL (14.0-18.0); MCH 34.3 pg (26.0-34.0); MCHC 33.5 g/dL (28.0-37.0); MCV 102.5 fL (80.0-100.0); MPV 7.7 fl. (7.2-11.1); RBC 3.69 mil/uL (4.50-6.00); RDW-CV 17.5 % (10.5-14.5); WBC 15.1 thou/uL (4.0-11.0)
[2020-01-11 13:38] LABS: CALCIUM 8.6 mg/dL (8.5-10.1); CREATININE 1.4 mg/dL (0.6-1.3)
[2020-01-11 15:50] VITALS: BP 175/75
--- NOTE | 2020-01-11 16:55 | NUR ---
PT A&OX4 VSS. PT ON 2L 02 BY NASAL CANNULA. REPORTED FALL AT HOME, BRUISING TO FACE OBSERVED UPON ASSUMING CARE OF PT THIS AM. IV TO RFA PATENT, SALINE LOCKED. DRESSING C/D/I. PT REMAINS ON FLUID RESTRICTION. PT AMBULATED INDEPENDENTLY IN MANRIQUE OF UNIT WITH MASK ON. GAIT STEADY. PT REQUESTED BOXED MEAL AT LUNCH HE DID NOT LIKE WHAT CAME FROM THE KITCHEN. IV ABX AND STEROIDS CONTINUED. PT RESTS IN BED WITH CALL LIGHT IN REACH. WILL CONTINUE TO MONITOR.
[2020-01-11 19:30] VITALS: BP 138/72
[2020-01-12] VITALS: BP 95/62
[2020-01-12 04:00] VITALS: BP 159/79
[2020-01-12 04:30] LABS: HEMATOCRIT 35.6 % (42.0-52.0); HEMOGLOBIN 11.9 gm/dL (14.0-18.0); MCH 34.2 pg (26.0-34.0); MCHC 33.5 g/dL (28.0-37.0); MCV 102.1 fL (80.0-100.0); MPV 7.9 fl. (7.2-11.1); RBC 3.49 mil/uL (4.50-6.00); RDW-CV 17.4 % (10.5-14.5); WBC 13.2 thou/uL (4.0-11.0)
[2020-01-12 04:46] LABS: CALCIUM 8.3 mg/dL (8.5-10.1); CREATININE 1.2 mg/dL (0.6-1.3); MAGNESIUM 2.1 mg/dL (1.8-2.4); POTASSIUM 4.9 mmol/L (3.5-5.1)
[2020-01-12 13:13] VITALS: BP 150/69
[2020-01-12 16:00] VITALS: BP 148/100
[2020-01-12 20:00] VITALS: BP 118/100
[2020-01-13] VITALS: BP 162/75
[2020-01-13 02:05] LABS: GLYCOHEMOGLOBIN (HGB A1C) 5.5 % (4.8-5.6)
[2020-01-13 04:00] VITALS: BP 155/88
--- NOTE | 2020-01-13 04:40 | NUR ---
ASSESSMENT COMPLETED AT BEDSIDE, PLEASE REFER TO CHARTING FOR DETAILS. MEDICATIONS ADMINISTERED PER JUL. PT HAD C/O PAIN AT START OF SHIFT OF 01/16, TREATED WITH PRN PAIN MEDICATION WITH PARTIAL RELIEF ALONG WITH ICE PACK. NO BEHAVIORS NOTED THIS SHIFT. PT REMAINS ON FALL PERCAUTIONS WITH BED ALARM ON AND CALL LIGHT WITHIN REACH.
[2020-01-13 04:50] LABS: HEMATOCRIT 35.6 % (42.0-52.0); MCH 34.1 pg (26.0-34.0); MCHC 33.6 g/dL (28.0-37.0); MCV 101.4 fL (80.0-100.0); MPV 8.1 fl. (7.2-11.1); RBC 3.51 mil/uL (4.50-6.00); RDW-CV 17.2 % (10.5-14.5); WBC 14.6 thou/uL (4.0-11.0)
[2020-01-13 04:54] LABS: ALBUMIN 3.2 g/dL (3.4-5.0); CALCIUM 8.2 mg/dL (8.5-10.1); CREATININE 1.2 mg/dL (0.6-1.3); POTASSIUM 4.7 mmol/L (3.5-5.1); TOTAL BILIRUBIN 0.4 mg/dL (<0.1-1.0); TOTAL PROTEIN 6.2 g/dL (6.4-8.2)
[2020-01-13 07:40] VITALS: BP 148/91
[2020-01-13 12:00] VITALS: BP 149/77
[2020-01-13 16:00] VITALS: BP 146/109
--- NOTE | 2020-01-13 17:27 | NUR ---
PATIENT RESTING IN BED. PATIENT IS UP STANDBY ASSIST WITH WALKER/GAITBELT. PATIENT WALKED IN MANRIQUE WITH PHYSICAL THERAPY X 1 TODAY. PATIENT HAS HAD COMPLAINTS OF NECK PAIN THROUGHOUT DAY, PARTIAL RELEIF WITH MEDICATION AND COLD. PATIENT HAD CT SCAN WITHOUT INCIDENT THIS AFTERNOON. PATIENT IS ON OXYGEN AT 2L/NC. PATIENT DENIES ANY TROUBLE BREATHING. PATIENT DENIES ANY NEEDS AT THIS TIME. CALL LIGHT WITHIN REACH.
[2020-01-13 19:32] VITALS: BP 145/81
[2020-01-14 00:36] VITALS: BP 135/85
--- NOTE | 2020-01-14 06:44 | NUR ---
PT A&OX4, ON 3L NC, VSS, MED/SURG STATUS, PAIN MEDS REQUESTED AND GIVEN ORDERED. PT REPORTED ONE EPISODE OF SOA AT APPROX 0250, RT CALLED FOR BREATHING TX, PAIN MED AND BENEDRYL GIVEN FOLLOWING TX, PT REPORTED RELIEF AFTER RT TX AND MED ADMINISTRATION. AT APPROX 0620 PT REPORTS HE IS COMFORTABLE. WILL CONTINUE TO MONITOR.
[2020-01-14 08:21] VITALS: BP 168/100
--- NOTE | 2020-01-14 10:18 | NUR ---
PT IN BED T/O THIS AM C/O PAIN TO NECK SHOULDER AND FACE NORCO GIVEN AND ATIVAN GIVEN BEFORE TRANSFER DOWNSTAIRS FOR SOA AND WHEN HAVE COUGHING FITS IT GETS WORSE ON ROOM AIR SATS AT 95% REPORT GIVEN TO VENU EUCEDA NO QUESTIONS OR CONCERNS UP SBA FOR RECENT FALLS BRUISING TO FACE
[2020-01-14 17:30] VITALS: BP 149/83
--- NOTE | 2020-01-14 17:34 | NUR ---
ASSUMED CARE OF PATIENT AT 1100. PATIENT IS RESTING IN BED. PATIENT IS UP TO DANGLE AD MACIEL. PATIENT IS UP STANDBY ASSIST. PATIENT HAS COMPLAINTS OF NECK PAIN, PARTIALLY RELIEVED WITH MEDICATION, COLD AND REPOSITIONING. PATIENT IS ON ROOM AIR, DENIES ANY TROUBLE BREATHING. PATIENT HAS GOOD APPETITE. PATIENT DENIES ANY NEEDS AT THIS TIME. CALL LIGHT WITHIN REACH.
[2020-01-14 20:30] VITALS: BP 167/88
[2020-01-15 04:42] LABS: HEMATOCRIT 38.6 % (42.0-52.0); HEMOGLOBIN 12.9 gm/dL (14.0-18.0); MCHC 33.4 g/dL (28.0-37.0); MCV 101.8 fL (80.0-100.0); MPV 7.9 fl. (7.2-11.1); RBC 3.79 mil/uL (4.50-6.00); RDW-CV 17.2 % (10.5-14.5); WBC 18.1 thou/uL (4.0-11.0)
[2020-01-15 05:19] LABS: ALBUMIN 3.1 g/dL (3.4-5.0); CALCIUM 8.2 mg/dL (8.5-10.1); CREATININE 1.5 mg/dL (0.6-1.3); MAGNESIUM 2.3 mg/dL (1.8-2.4); POTASSIUM 4.9 mmol/L (3.5-5.1); TOTAL BILIRUBIN 0.5 mg/dL (<0.1-1.0); TOTAL PROTEIN 6.2 g/dL (6.4-8.2)
--- NOTE | 2020-01-15 07:14 | NUR ---
PT AOX4, SLEPT OFF AND ON, REQUESTING COFFEE AND SNACKS. USING URINAL TO VOID. UP TO BATHROOM FOR LARGE BM PT STATES R FA SL IV, SOLUMEDROL GIVEN ORDERED. RT TX GIVEN. OCC CONGESTED COUGH WITH BARAJAS SPUTUM OBSERVED ONCE. HYDROCODONE GIVEN FOR CO NECK AND BACK PAIN RELATED TO FALL DOWN STAIRS. ROOM AIR SAT 93%. AM LABS. ABLE TO USE CALL LITE AND MAKE NEEDS KNONW.
[2020-01-15 07:25] VITALS: BP 147/91
--- NOTE | 2020-01-15 14:58 | NUR ---
FEELING SOME BETTER TODAY. CT SPINE NEG. FOR FX. TAPERING MEDS. POSSIBLY HOME TOMORROW.
[2020-01-15 15:46] VITALS: BP 134/86
--- NOTE | 2020-01-15 17:08 | NUR ---
PT REMAINED ALERT AND ORIENTED. PT RESTING IN BED. PT BECAME ANXIOUS ONCE THIS SHIFT, MEDS GIVEN TO HELP. PT COMPLAINED OF PAIN IN NECK, MEDS GTIVEN ORDERED. PT RESTING IN BED. FALL RISK PRECAUTIONS IN PLACE. HOURLY ROUNDING COMPLETED. WILL CONTINUE TO MONITOR.
--- NOTE | 2020-01-16 05:56 | NUR ---
PATIENT SLEPT WELL DURING THIS SHIFT. PT CALLED FOR PAIN MEDICATION AND BREATHING TREATMENT THIS AM C/O CHEST PAIN FROM COUGHING AND INABILITY TO COUGH UP MUCOUS. PT SAID FELT BETTER AFTER BR TX COMPLETED. PT VOIDS YELLOW URINE PER URINAL. PT RESTING COMFORTABLY AT THIS TIME. FREQUENTLY USED ITEMS AND CALL LIGHT WITHIN REACH. SIDERAILS UPX2. WILL CONTINUE TO MONTIR.
[2020-01-16 07:15] VITALS: BP 126/91
[2020-01-16 08:06] VITALS: BP 126/91
[2020-01-16] MEDS ORDERED: LIDOPATCH1 EACH TOP (09:37)
[2020-01-16] MEDS ORDERED: CEFDINIR300 MG PO (09:37)
[2020-01-16] MEDS ORDERED: PREDNISONE 10 M10 MG PO (09:37)
[2020-01-16] MEDS ORDERED: BROVANA15 MCG/2 M INH (09:37)
[2020-01-16] MEDS ORDERED: PULMICORT0.5 MG/2 M INH (09:37)
[2020-01-16] MEDS ORDERED: BACLOFEN20 MG PO (09:55)
[2020-01-16] MEDS ORDERED: NORCO 10-325 T1 EACH PO (09:55)
[2020-01-16] MEDS ORDERED: PROTONIX40 M2 PO (10:10)
--- NOTE | 2020-01-16 10:33 | NUR ---
PT.TO DISCHARGE TODAY. HE DENIES DISCHARGE NEEDS. R.T.CHECKED HIS O2 SATS AND HE DID NOT QUIALFY FOR 02.
--- NOTE | 2020-01-16 12:48 | NUR ---
PT GIVEN DISCHARGE INFORMATION, CARE NOTES, AND PRESCRIPTIONS FAXED TO PHARMACY. IV REMOVED. PT BELONGINGS GATHERED. FALL RISK PRECAUTIONS IN PLACE. HOURLY ROUNDING COMPLETED. PT LEFT VIA WHEELCHAIR WITH NURSING STAFF TO HOME.
== END 2020-01-16 13:50 | disposition home or self-care (01) | DRG 177 ==
LOC: M.ERS 22:02 → M.2W 01-10 02:55 → M.TBA-ER 01-10 02:55 → M.2W 01-10 04:08 → M.ORTHSURG 01-14 10:34
PROVIDERS: Emergency Medicine; Internal Medicine; ADMIT Internal Medicine; ATTEND Internal Medicine
DX: J15.6 Pneumonia due to other Gram-negative bacteria (principal); I50.33 Acute on chronic diastolic (congestive) heart failure; J96.21 Acute and chronic respiratory failure with hypoxia; J44.1 Chronic obstructive pulmonary disease with (acute) exacerbation; J44.0 Chronic obstructive pulmonary disease with (acute) lower respiratory infection; I13.0 Hypertensive heart and chronic kidney disease with heart failure and stage 1 through stage 4 chronic kidney disease, or unspecified chronic kidney disease; G89.29 Other chronic pain; M25.562 Pain in left knee; M25.512 Pain in left shoulder; M25.572 Pain in left ankle and joints of left foot; F17.210 Nicotine dependence, cigarettes, uncomplicated; I87.8 Other specified disorders of veins; Z20.828 Contact with and (suspected) exposure to other viral communicable diseases; K21.9 Gastro-esophageal reflux disease without esophagitis; E66.9 Obesity, unspecified; N18.3 Chronic kidney disease, stage 3 (moderate); Z79.899 Other long term (current) drug therapy; Z90.49 Acquired absence of other specified parts of digestive tract; Z68.39 Body mass index [BMI] 39.0-39.9, adult

== ENCOUNTER 2020-01-24 19:37 | Inpatient (IN) | payer OTHER, MEDICAID ==
[~2020-01-24] VITALS: Ht 185.4 cm; Wt 140.0 kg
--- NOTE | ~2020-01-24 | CON ---
[address] [address] CONSULTATION Name: AKI VIEIRA Room: [address] IN M.R.#: [id number] Admission: 01/25/20 Attend Phys: Porter Trent, Discharge: Date of : 62 Report #: [id number] THIS REPORT FOR: //name// cc: ANDREW BOWSER MD, HEATHER L. MD ~ THIS REPORT FOR: //name// CC: ANDREW Trent DICTATED BY: eMgan Ambriz [facility] DATE OF SERVICE: 01/29/2020 Please note at the time of this dictation, the patient was seen and physically examined by myself. REASON FOR CONSULTATION: Dysphagia. HISTORY OF PRESENT ILLNESS: This is a 59-year-old male who presented to the Emergency Room with increased shortness of breath, chest pain, neck pain and back pain after he fell down a flight of steps on 01/09/2020. It was noted that he did fracture some ribs and he has been on steroids for this for some time, one for his COPD as well. He has been complaining that he has had some increased difficulty with swallowing. On occasions, he will vomit up liquids. He states this has been ongoing for a little while. He denies ever having any upper or lower endoscopy studies at this time. He states it is not all the time, but it is quite a bit that it seems to be more with liquids than solids. He did have a video swallow done with speech that showed with deep penetration. He had one incidence of possible aspiration, otherwise was normal. He denies any issues with acid reflux. He states a long time ago when he was much heavier, he lost all of his weight and then no longer had any issues with acid reflux. He states his bowels move daily to every other day. They are soft and formed. On occasion, he will have to take stool softeners or something else to help his bowels goes if he does not go, because he does take narcotics on a regular basis for his neck and other joint pains. ALLERGIES: EGG. MEDICATIONS: From home include Pulmicort, lidocaine patch, Omnicef, prednisone, Brovana, baclofen, Blanco, trazodone, Meloxicam, Singulair. PAST MEDICAL HISTORY: Hypertension, COPD; chronic neck and shoulder, knee [place] [address] CONSULTATION Name: AKI VIEIRA Room: [address] IN [facility]#: [id number] Admission: 01/25/20 Attend Phys: Porter Trent, Discharge: Date of : 62 Report #: [id number] PAST SURGICAL HISTORY: Tonsillectomy and nodules on his vocal cords. FAMILY HISTORY: Negative for any GI or female cancers. SOCIAL HISTORY: He does drink on special occasions, whiskey. Quit smoking greater than 1 year ago and denies any illegal drug use. REVIEW OF SYSTEMS: Twelve-point review of systems is essentially negative except what is mentioned in the HPI. PHYSICAL EXAMINATION: VITAL SIGNS: Temperature 36.6, pulse 89, respirations 17, blood pressure 197/100. HEART: Regular rate and rhythm. LUNGS: Diminished. ABDOMEN: Soft, positive bowel sounds in all 4 quadrants with no masses or tenderness noted. LABORATORY DATA: Hemoglobin 11.8, white count is 17, platelets 248. GFR is 97. LFTs and lipase are normal. PT is 10.1, INR is 1. CT of the chest showed some rib fractures. IMPRESSION: 1. Dysphagia. 2. Constipation secondary to narcotic use for pain. 3. Leukocytosis secondary to steroids. 4. Chronic obstructive pulmonary disease. 5. Alcohol use. PLAN: 1. EGD tomorrow in the a.m. 2. If above all negative, may consider an esophageal motility study. 3. Further recommendations to be made once the procedure has been performed. Thank you for allowing us to participate in this patient's care. Please do not hesitate to call with any questions in regard to this consult. By: [id number] Aguiar MD /shireen
[~2020-01-24 19:37] MED LIST changes: +BACLOFEN20 MG PO; +BROVANA15 MCG/2 M INH; +CARAFATE 1 GM TA1 GM PO; +CEFDINIR300 MG PO; +LIDOPATCH1 EACH TOP; +ONDANSETRON ODT8 MG PO; +PROTONIX40 M2 PO; +PULMICORT0.5 MG/2 M INH; +ROBAXIN 750 MG750 MG PO
[2020-01-24 19:42] VITALS: BP 129/55
[2020-01-24] MEDS ORDERED: DALIRESP250 MCG PO (19:49)
[2020-01-24 20:08] LABS: HEMATOCRIT 36.1 % (42.0-52.0); HEMOGLOBIN 12.4 gm/dL (14.0-18.0); MCH 34.4 pg (26.0-34.0); MCHC 34.5 g/dL (28.0-37.0); MCV 99.8 fL (80.0-100.0); MPV 7.8 fl. (7.2-11.1); NUCLEATED RBCS 0 /100WBC; PLATELET COUNT* 391 thou/uL (150-400); RBC 3.61 mil/uL (4.50-6.00); RDW-CV 16.7 % (10.5-14.5); WBC 16.8 thou/uL (4.0-11.0)
[2020-01-24 20:23] LABS: PROTIME 10.1 Seconds (9.20-11.50)
[2020-01-24 20:24] LABS: CALCIUM 8.7 mg/dL (8.5-10.1); CREATININE 2.3 mg/dL (0.6-1.3); POTASSIUM 4.8 mmol/L (3.5-5.1)
[2020-01-24 20:31] LABS: ALBUMIN 3.3 g/dL (3.4-5.0); MAGNESIUM 2.1 mg/dL (1.8-2.4); TOTAL BILIRUBIN 0.3 mg/dL (<0.1-1.0); TOTAL PROTEIN 6.7 g/dL (6.4-8.2)
[2020-01-24 21:07] LABS: ABSOLUTE BASOPHILS 0.2 thou/uL (0.0-0.2); ABSOLUTE LYMPHOCYTES 0.5 thou/uL (0.8-5.3); ABSOLUTE MONOCYTES 0.7 thou/uL (0.0-1.2); ABSOLUTE NEUTROPHILS 15.5 thou/uL (1.6-8.1)
[2020-01-24 21:08] LABS: ANISOCYTOSIS Occasional; PLATELET ESTIMATE ADEQUATE
[2020-01-24 22:33] LABS: URINE BILIRUBIN NEGATIVE (Negative); URINE BLOOD NEGATIVE (Negative); URINE CLARITY CLEAR; URINE COLOR YELLOW; URINE GLUCOSE-RANDOM NEGATIVE (Negative); URINE KETONES NEGATIVE (Negative); URINE LEUKOCYTES-REFLEX NEGATIVE (Negative); URINE NITRITE-REFLEX NEGATIVE (Negative); URINE PROTEIN NEGATIVE (Negative); URINE SPECIFIC GRAVITY 1.025 (1.005-1.030); URINE UROBILINOGEN 0.2 E.U./dl (0.2-1.0)
[2020-01-25] VITALS (7 sets, daily range): BP systolic 135–159; BP diastolic 77–107
--- NOTE | 2020-01-25 10:37 | EKG ---
[place] [address] ELECTROCARDIOGRAM REPORT Name: AKI VIEIRA Room: [address] [place] [address] ADM IN [facility]#: [id number] Admission: 01/25/20 Attend Phys: Porter Goncalves Discharge: Date of : 62 Date of Service: 01/24/201945 Report #: [id number] THIS REPORT FOR: //name// [facility] ED Test Date: 2020-01-24 Test Time: 19:46:30 Pat Name: AKI VIEIRA Department: Room: [facility] Gender: M Gate Watchman: JOHNNIE : 1960 Requested By: Kristin Omalley Order Number: [id number] MD: Kalen Reyes Measurements Intervals [place] Rate: 78 P: 48 MT: 144 QRS: 57 QRSD: 99 T: 62 QT: 391 QTc: 446 Interpretive Statements Sinus rhythm Baseline wander in lead(s) II,aVF Compared to ECG 01/09/2020 22:19:33 Sinus tachycardia no longer present Ventricular premature complex(es) no longer present Intraventricular conduction delay no longer present Electronically Signed On 01-25-2020 10:37:23 CDT by Kalen Reyes [email or web address] <ELECTRONICALLY SIGNED> By: Kalen Reyes MD, FAC 01/25/20 1037 45 45 Kalen Reyes MD, [facility] /EPI
[2020-01-25 17:16] LABS: MCH 33.9 pg (26.0-34.0); MCHC 33.3 g/dL (28.0-37.0); MCV 101.8 fL (80.0-100.0); MPV 8.5 fl. (7.2-11.1); NUCLEATED RBCS 0 /100WBC; PLATELET COUNT* 334 thou/uL (150-400); RBC 3.54 mil/uL (4.50-6.00); RDW-CV 17.1 % (10.5-14.5); WBC 16.7 thou/uL (4.0-11.0)
[2020-01-25 17:24] LABS: CALCIUM 8.7 mg/dL (8.5-10.1); CREATININE 1.7 mg/dL (0.6-1.3); MAGNESIUM 2.1 mg/dL (1.8-2.4); POTASSIUM 4.3 mmol/L (3.5-5.1)
[2020-01-25 17:36] LABS: ABSOLUTE EOSINOPHILS 0.2 thou/uL (0.0-0.7); ABSOLUTE LYMPHOCYTES 2.7 thou/uL (0.8-5.3); ABSOLUTE MONOCYTES 0.5 thou/uL (0.0-1.2); ABSOLUTE NEUTROPHILS 13.4 thou/uL (1.6-8.1); ANISOCYTOSIS 1+; ATYPICAL LYMPHS 4 %; PLATELET ESTIMATE ADEQUATE
[2020-01-25 17:37] LABS: MACROCYTES 1+
[2020-01-26] VITALS: BP 137/75
[2020-01-26 04:00] VITALS: BP 173/85
[2020-01-26 05:47] LABS: CALCIUM 8.5 mg/dL (8.5-10.1); CREATININE 1.5 mg/dL (0.6-1.3); TOTAL BILIRUBIN 0.2 mg/dL (<0.1-1.0); TOTAL PROTEIN 6.3 g/dL (6.4-8.2)
[2020-01-26 06:03] LABS: POTASSIUM 5.4 mmol/L (3.5-5.1)
[2020-01-26 08:00] VITALS: BP 180/91
[2020-01-26 12:37] VITALS: BP 179/91
[2020-01-26 20:00] VITALS: BP 138/67
[2020-01-27] VITALS: BP 136/62; BP 141/80; BP 152/77
[2020-01-27 04:00] VITALS: BP 172/79
[2020-01-27 05:38] LABS: CALCIUM 8.7 mg/dL (8.5-10.1); CREATININE 1.4 mg/dL (0.6-1.3); POTASSIUM 4.3 mmol/L (3.5-5.1)
[2020-01-27 06:24] LABS: AMP/METHAMP Negative (Negative); BARBITURATES Negative (Negative); BENZODIAZEPINES Negative (Negative); COCAINE Negative (Negative); METHADONE Negative (Negative); OPIATES POSITIVE (Negative); PCP Negative (Negative); THC Negative (Negative)
[2020-01-27 08:00] VITALS: BP 134/72
[2020-01-27 10:41] LABS: ABSOLUTE BASOPHILS 0.1 thou/uL (0.0-0.2); ABSOLUTE MONOCYTES 0.7 thou/uL (0.0-1.2); ABSOLUTE NEUTROPHILS 12.2 thou/uL (1.6-8.1); BASOPHILS 0.6 %; EOSINOPHILS 0.2 %; HEMATOCRIT 34.2 % (42.0-52.0); HEMOGLOBIN 11.4 gm/dL (14.0-18.0); LYMPHOCYTES 13.3 %; MCH 34.2 pg (26.0-34.0); MCHC 33.3 g/dL (28.0-37.0); MCV 102.9 fL (80.0-100.0); MONOCYTES 4.6 %; MPV 8.5 fl. (7.2-11.1); NUCLEATED RBCS 0 /100WBC; PLATELET COUNT* 273 thou/uL (150-400); POLYS 81.3 %; RBC 3.32 mil/uL (4.50-6.00); RDW-CV 16.4 % (10.5-14.5)
[2020-01-27 12:47] VITALS: BP 147/82
[2020-01-27 16:20] VITALS: BP 120/62
[2020-01-27 20:10] VITALS: BP 151/83
[2020-01-28] VITALS: BP 123/87
[2020-01-28 04:00] VITALS: BP 126/74
[2020-01-28 04:55] LABS: ABSOLUTE LYMPHOCYTES 0.2 thou/uL (0.8-5.3); ABSOLUTE MONOCYTES 0.1 thou/uL (0.0-1.2); ABSOLUTE NEUTROPHILS 11.1 thou/uL (1.6-8.1); EOSINOPHILS 0.1 %; HEMATOCRIT 34.1 % (42.0-52.0); HEMOGLOBIN 11.6 gm/dL (14.0-18.0); MCH 34.1 pg (26.0-34.0); MCHC 33.9 g/dL (28.0-37.0); MCV 100.7 fL (80.0-100.0); MONOCYTES 0.5 %; MPV 7.9 fl. (7.2-11.1); NUCLEATED RBCS 0 /100WBC; PLATELET COUNT* 250 thou/uL (150-400); POLYS 97.4 %; RBC 3.39 mil/uL (4.50-6.00); RDW-CV 16.6 % (10.5-14.5); WBC 11.4 thou/uL (4.0-11.0)
[2020-01-28 05:38] LABS: ALBUMIN 3.1 g/dL (3.4-5.0); CALCIUM 8.7 mg/dL (8.5-10.1); CREATININE 1.3 mg/dL (0.6-1.3); POTASSIUM 4.9 mmol/L (3.5-5.1); TOTAL BILIRUBIN 0.2 mg/dL (<0.1-1.0); TOTAL PROTEIN 6.2 g/dL (6.4-8.2)
[2020-01-28 07:20] VITALS: BP 126/76
[2020-01-28 12:00] VITALS: BP 202/107
--- NOTE | 2020-01-28 13:23 | CON ---
[address] [address] CONSULTATION Name: AKI VIEIRA Room: [address] IN M.R.#: [id number] Admission: 01/25/20 Attend Phys: Porter Trent, Discharge: Date of : 62 Report #: [id number] THIS REPORT FOR: //name// cc: ANDREW BOWSER MD, HEATHER L. MD ~ THIS REPORT FOR: //name// CC: ANDREW Trent DATE OF SERVICE: 01/26/2020 REQUESTING PHYSICIAN: Dr. Salgado. REASON FOR CONSULTATION: Acute kidney injury. HISTORY OF PRESENT ILLNESS: The patient is a 59-year-old obese gentleman who was admitted with worsening shortness of breath, neck pain, nausea, vomiting, and difficulty swallowing. The patient has been sick for the past 2-3 weeks. He initially fell down a flight of stairs 2 weeks ago and since that time has been short of breath. He was seen in the ER. A CT at that time apparently did not show any abnormalities. He was given some steroids and sent home. Subsequently, admitted to [facility] with a similar complaint and was found to have rib fractures. He now comes in for difficulty swallowing and vomiting, unable to keep fluids down. At home, he is on diuretics. He is on meloxicam, he is on narcotics and he is on MICHAEL inhibitors. On admission, he was found to be in acute kidney injury with creatinine of 2.3. His baseline appears to be 1-1.2. This morning, he reports he is still unable to keep any fluids down, appears very anxious, continues to have back pain and neck pain. His vitals have remained relatively stable with blood pressure in fact on the higher side. PAST MEDICAL HISTORY: He does have history of COPD. He does not use oxygen at home. Hypertension, obesity, chronic kidney disease stage 3, possibly at baseline; GERD, chronic narcotic use, fentanyl patches and more recently oxycodone; chronic knee pain, shoulder pain, ankle pain, etc.; history of vocal cord nodules, tonsillectomy, and last documented ejection fraction 55-60% on echo. PERSONAL, SOCIAL AND FAMILY HISTORY: Heavy history of smoking. The patient is evasive about his alcohol intake. FAMILY HISTORY: No history of end-stage renal disease. ALLERGIES: [place] [address] CONSULTATION Name: AKI VIEIRA Room: [address]#: [id number] Admission: 01/25/20 Attend Phys: Porter Trent, Discharge: Date of : 62 Report #: [id number] REVIEW OF SYSTEMS: He appears very distressed and anxious as he is unable to keep fluids down as everything just comes up. No fevers, no chills. Occasional cough. He continues to have shortness of breath. Has significant neck pain, back pain, and lower back pain. No difficulty emptying his bladder. PHYSICAL EXAMINATION: VITAL SIGNS: Blood pressure this morning is 173/85, pulse is 61 and temperature is 36.4. GENERAL: He is awake, he is alert. He denies any acute complaints except for the nausea and vomiting and difficulty keeping fluids down. He is significantly obese. LUNGS: Diminished bilaterally. SKIN: Very dry. Mucous membranes are dry. EXTREMITIES: Show no edema. NEUROLOGIC: Grossly stable. LABORATORY DATA: White blood cell count 16.7 and hemoglobin is 12. Metabolic panel: Sodium is 130, potassium is 5.4, chloride 98, bicarbonate 24, BUN 36, creatinine 1.5 down from 2.3 yesterday, glucose is 235 and has remained high, but he is also on steroids. AST 9, ALT 33. Magnesium 2.0 and phosphorus 3.7. SPEP is pending. Urinalysis is relatively clear, specific gravity 1.025. INR is 1. IMAGING STUDIES: Chest x-ray, no acute changes are noticed. Neck CT shows extensive cervical spine degenerative changes, but no suspicious masses or soft tissue swelling. A chest CT without IV contrast shows no acute pulmonary process. ASSESSMENT: 1. Nonoliguric acute kidney injury. 2. Baseline chronic kidney disease stage 3 with creatinine close to 1-1.2. 3. Chronic obstructive pulmonary disease. 4. Hypertension. 5. Recent falls and multiple hospital visits for above-mentioned complaints. 6. He does appear volume depleted because of his nausea and vomiting and poor intake. 7. Obesity. 8. Hypertension. 9. Dyslipidemia. 10. Chronic obstructive pulmonary disease. 11. Heavy history of smoking. 12. Questionable heavy alcohol use also. PLAN: 1. Acute kidney injury, nonoliguric. He is volume depleted. He was on [facility] [address] [place] [address] CONSULTATION Name: AKI VIEIRA Room: [address] IN M.R.#: [id number] Admission: 01/25/20 Attend Phys: Porter Trent, Discharge: Date of : 62 Report #: [id number] inhibitors and diuretics at home. He also has been using meloxicam. 2. Restart normal saline at 75 mL an hour. 3. Check an ultrasound of the kidneys. 4. Avoid all nephrotoxic agents. 5. Hypertension. His MICHAEL inhibitors have been stopped. He is on IV steroids, which trend the blood pressure up too. Need to start some peripheral vasodilators, we will start amlodipine and his hydralazine as needed. We can also use doxazosin if needed. Thank you for the consultation. We will continue to follow and provide necessary support. <ELECTRONICALLY SIGNED> By: Shanda Sinclair MD 01/28/20 1323 0812 [id number] Sinclair MD /nt
[2020-01-28 16:29] VITALS: BP 163/68
[2020-01-28 19:45] VITALS: BP 155/70
[2020-01-29 04:09] LABS: HEMATOCRIT 34.4 % (42.0-52.0); HEMOGLOBIN 11.8 gm/dL (14.0-18.0); MCH 34.3 pg (26.0-34.0); MCHC 34.2 g/dL (28.0-37.0); MCV 100.3 fL (80.0-100.0); MPV 7.9 fl. (7.2-11.1); NUCLEATED RBCS 0 /100WBC; PLATELET COUNT* 248 thou/uL (150-400); RBC 3.43 mil/uL (4.50-6.00); RDW-CV 16.6 % (10.5-14.5)
[2020-01-29 04:32] LABS: ALBUMIN 3.1 g/dL (3.4-5.0); CREATININE 1.3 mg/dL (0.6-1.3); MAGNESIUM 2.2 mg/dL (1.8-2.4); POTASSIUM 4.3 mmol/L (3.5-5.1); TOTAL BILIRUBIN 0.3 mg/dL (<0.1-1.0); TOTAL PROTEIN 6.4 g/dL (6.4-8.2)
[2020-01-29 06:43] LABS: ABSOLUTE LYMPHOCYTES 0.3 thou/uL (0.8-5.3); ABSOLUTE NEUTROPHILS 16.7 thou/uL (1.6-8.1); PLATELET ESTIMATE ADEQUATE
[2020-01-29 07:50] VITALS: BP 197/100
[2020-01-29 14:07] LABS: GLOBULIN TOTAL 2.4 g/dL (2.2-3.9); M-SPIKE Not Observed g/dL (Not Observed)
[2020-01-29 16:00] VITALS: BP 184/93
[2020-01-29 16:48] VITALS: BP 177/72
[2020-01-30 17:06] LABS: URINE PROTEIN (MG/DL) < 4.0 mg/dL (Not Estab.)
--- NOTE | 2020-01-31 13:11 | CON ---
[address] [address] CONSULTATION Name: AKI VIEIRA Room: [address] IN .R.#: [id number] Admission: 01/25/20 Attend Phys: Porter Trent, Discharge: 01/29/20 Date of : 62 Report #: [id number] THIS REPORT FOR: //name// cc: ANDREW BOWSER MD, HEATHER L. MD ~ THIS REPORT FOR: //name// CC: ANDREW Trent DATE OF SERVICE: 01/25/2020 REQUESTING PHYSICIAN: Rafael Salgado MD. INDICATION FOR CONSULTATION: COPD exacerbation. HISTORY OF PRESENT ILLNESS: This is a 59-year-old gentleman, past medical history includes a history of COPD. The patient is not on supplemental oxygen, CPAP or BiPAP at home; however, it does appear that he has previously undiagnosed obstructive sleep apnea. The patient's baseline creatinine is 1.2. The patient was now admitted recently to this hospital on 01/08. At that time, he had fallen. The patient, at that time, had reported increase in shortness of breath and he was also coughing up copious amounts of thick yellow and white sputum. The patient was treated with ceftriaxone as well as Zithromax and then was discharged on cefdinir. The patient, after the fall, stated that he started having dizziness and he has had cizgihqo-gh-ekdokt pain in his head and neck. The patient says that he has had significant dysphagia, which is also a new onset and occurring since he fell on 01/08. The patient was discharged from this hospital on 01/15. He says that his symptoms of shortness of breath worsened and also that he had been having significant amounts of vomiting and had difficulty keeping food down, which is the reason that he came back to the Emergency Room here. As noted above, the patient's baseline creatinine is 1.2. The patient's creatinine when last checked before this admission was 1.5 on 01/14. When admitted yesterday, his creatinine was 2.3 and therefore, he is in acute renal failure. The patient was resuscitated with a liter of saline in the Emergency Room. He currently is not on IV fluids. He does have swelling of lower extremities. He does not report any recent change in this. He only has mall amounts of sputum production now. He does, however, state that he has a cough. He also says that he has clear nasal discharge. He has had some sore throat. There is no fever or chills. REVIEW OF SYSTEMS: Twelve points is negative, 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 The patient has been on a fentanyl patch as well as other narcotics since recent fall. The patient says he has not been taking narcotics previously on a regular basis. However, there is a mention of chronic knee pain, shoulder pain and ankle pain on the records, also history of nodules on vocal cords, tonsillectomy, hypertension. Last available echocardiogram shows a left ventricular ejection fraction of 55-60% and a pulmonary artery systolic of 37. SOCIAL HISTORY: There is an extensive history of smoking a pack or more a day, several decades. He discontinued 1-1/2 years ago. No known history of heavy alcohol use or illegal drug use. He is using narcotics as above. FAMILY HISTORY: There is no known pertinent family history. ALLERGIES: EGGS. PHYSICAL EXAMINATION: GENERAL: He is alert, awake and oriented. VITAL SIGNS: He is on room air. He is saturating 96%. He has a pulse of 71 and a blood pressure of 146/93. Respiratory rate has been highly variable. At the time of my examination, it was around 22-24. He is afebrile with a temperature of 36.5. Body mass index is significantly elevated at 39. HEENT: Head is normocephalic and atraumatic. Pupils are equal and reactive. There is no throat erythema. Throat examination, however, is limited due to the fact that he has a very narrow airway, it is around Mallampati 4. NECK: Does not show raised JVP, asymmetry, mass or lymph nodes. CHEST: Symmetrical expansion on inspection and palpation. On auscultation, breath sounds are significantly decreased. Expirations are prolonged. There are a few scattered expiratory wheezes bilaterally. HEART: Regular. There is no murmur. ABDOMEN: Soft and nontender. EXTREMITIES: Lower extremities show 1+ edema bilaterally. There are changes consistent with chronic venous insufficiency. There is no calf tenderness. SKIN: However, dry and intact. NEUROLOGICAL: Moves all extremities bilaterally equally and spontaneously with no focal deficit identified. The patient has had CTs of the chest, head and neck performed yesterday. I reviewed all of the reports. I also reviewed the chest x-ray film and report. I reviewed the chest CT films myself as well. In summary, there are changes consistent with COPD. I do not see any significant pulmonary vascular congestion and [place] [address] CONSULTATION Name: AKI VIEIRA Room: [address]#: [id number] Admission: 01/25/20 Attend Phys: Porter Trent, Discharge: 01/29/20 Date of : 62 Report #: [id number] ASSESSMENT AND PLAN: 1. Chronic obstructive pulmonary disease exacerbation. He still appears to be bronchospastic. He is on nebulizers, which I agree with and we will continue as currently prescribed. I did not find Solu-Medrol on his medication list and therefore, I tried to order, which gave me an error message stating that the patient is already on Solu-Medrol 40 mg q.8 hours. I called the pharmacy and the pharmacy is not seeing Solu-Medrol on their end, this appears to be an error in [employer]. Regardless, upon my request, pharmacy has now started him on Solu-Medrol. 2. Acute renal failure. Baseline creatinine is 1.2, it was 2.3 yesterday. Therefore, I requested chemistries to be added to his labs from this morning. We will review when available. Nephrology service has been consulted. I ordered a renal ultrasound as well. The patient does have pedal edema. 3. Hypersomnia/sleep disturbances/narrow airway. He appears to have previously undiagnosed obstructive sleep apnea, I would recommend an outpatient sleep study. If his condition deteriorate, I will have a low threshold of using a CPAP or BiPAP. 4. Dysphagia. We will also obtain a speech consult. GI service has been consulted. 5. Intractable vomiting. GI service on the case. 6. Dizziness/inability to maintain balance/severe head and neck pain. This has been persistent since his recent fall. Note that he is wearing a fentanyl patch, which he says is new for him. He is also receiving oral narcotics. I will request a Neurology opinion as well regarding his complaints. 7. History of gastroesophageal reflux disease. Thanks for this consultation. <ELECTRONICALLY SIGNED> By: Chucho Donahue MD 01/31/20 1311 1719 [id number] Donahue MD /nt
== END 2020-01-29 17:45 | disposition short-term general hospital (02) | DRG 640 ==
LOC: M.ERS 19:37 → M.3W 01-25 00:24 → M.TBA-ER 01-25 00:24 → M.2W 01-25 16:13 → M.3W 01-28 16:20
PROVIDERS: Emergency Medicine; Internal Medicine; Internal Medicine Critical Care Medicine; Internal Medicine Nephrology; ADMIT Family Medicine; ATTEND Family Medicine
DX: E86.0 Dehydration (principal); N17.0 Acute kidney failure with tubular necrosis; R65.11 Systemic inflammatory response syndrome (SIRS) of non-infectious origin with acute organ dysfunction; Z68.41 Body mass index [BMI] 40.0-44.9, adult; J44.1 Chronic obstructive pulmonary disease with (acute) exacerbation; E87.1 Hypo-osmolality and hyponatremia; G89.29 Other chronic pain; F10.10 Alcohol abuse, uncomplicated; Y90.9 Presence of alcohol in blood, level not specified; E66.01 Morbid (severe) obesity due to excess calories; M48.02 Spinal stenosis, cervical region; F41.9 Anxiety disorder, unspecified; F32.9 Major depressive disorder, single episode, unspecified; R13.10 Dysphagia, unspecified; I12.9 Hypertensive chronic kidney disease with stage 1 through stage 4 chronic kidney disease, or unspecified chronic kidney disease; K21.9 Gastro-esophageal reflux disease without esophagitis; G47.10 Hypersomnia, unspecified; N18.3 Chronic kidney disease, stage 3 (moderate); K59.00 Constipation, unspecified; K27.9 Peptic ulcer, site unspecified, unspecified as acute or chronic, without hemorrhage or perforation; G47.33 Obstructive sleep apnea (adult) (pediatric); I95.1 Orthostatic hypotension; E78.5 Hyperlipidemia, unspecified; R11.2 Nausea with vomiting, unspecified; Z20.828 Contact with and (suspected) exposure to other viral communicable diseases; Z79.899 Other long term (current) drug therapy; Z87.891 Personal history of nicotine dependence; Z91.018 Allergy to other foods

== ENCOUNTER 2020-05-12 07:21 | Inpatient (IN) | payer OTHER, MEDICAID ==
[~2020-05-12] VITALS: Ht 185.4 cm; Wt 121.1 kg
[~2020-05-12 07:21] MED LIST changes: +DALIRESP250 MCG PO
[2020-05-12 07:29] VITALS: BP 142/82
[2020-05-12 08:50] LABS: ABSOLUTE BASOPHILS 0.1 thou/uL (0.0-0.2); ABSOLUTE EOSINOPHILS 0.1 thou/uL (0.0-0.7); ABSOLUTE LYMPHOCYTES 1.7 thou/uL (0.8-5.3); ABSOLUTE MONOCYTES 0.6 thou/uL (0.0-1.2); ABSOLUTE NEUTROPHILS 12.1 thou/uL (1.6-8.1); BASOPHILS 0.6 %; EOSINOPHILS 0.4 %; HEMATOCRIT 37.8 % (42.0-52.0); HEMOGLOBIN 12.4 gm/dL (14.0-18.0); LYMPHOCYTES 11.5 %; MCH 30.8 pg (26.0-34.0); MCHC 32.7 g/dL (28.0-37.0); MCV 94.2 fL (80.0-100.0); MONOCYTES 4.2 %; MPV 6.2 fl. (7.2-11.1); NUCLEATED RBCS 0 /100WBC; PLATELET COUNT* 480 thou/uL (150-400); POLYS 83.3 %; RBC 4.01 mil/uL (4.50-6.00); RDW-CV 19.2 % (10.5-14.5); WBC 14.5 thou/uL (4.0-11.0)
[2020-05-12 09:00] LABS: CALCIUM 8.8 mg/dL (8.5-10.1); CREATININE 1.4 mg/dL (0.6-1.3)
[2020-05-12 09:03] LABS: APTT 23.4 Seconds (25.0-31.3); PROTIME 10.5 Seconds (9.20-11.50)
[2020-05-12 09:10] LABS: ALBUMIN 3.8 g/dL (3.4-5.0); MAGNESIUM 1.7 mg/dL (1.8-2.4); TOTAL BILIRUBIN 0.3 mg/dL (<0.1-1.0); TOTAL PROTEIN 7.1 g/dL (6.4-8.2)
--- NOTE | 2020-05-12 09:10 | NUR ---
IV STARTED BY VENU RAY.
--- NOTE | 2020-05-12 13:52 | EKG ---
[place] [address] ELECTROCARDIOGRAM REPORT Name: AKI VIEIRA Room: [place] [address] ADM IN [facility]#: [id number] Admission: 05/12/20 Attend Phys: Abdifatah Alarcon Discharge: Date of : 62 Date of Service: 05/12/20 0855 Report #: [id number] THIS REPORT FOR: //name// [facility] ED Test Date: 2020-05-12 Test Time: 08:55:53 Pat Name: AKI VIEIRA Department: Room: [facility] Gender: M Property Analyst: SHERRI : 1960 Requested By: Ariel Guadarrama Order Number: [id number] MD: Bari Esquivel Measurements Intervals [place] Rate: 112 P: 76 NM: 139 QRS: 69 QRSD: 107 T: 54 QT: 356 QTc: 486 Interpretive Statements Sinus tachycardia Multiple ventricular premature complexes Borderline prolonged QT interval Baseline wander in lead(s) V2 Compared to ECG 01/24/2020 19:46:30 Ventricular premature complex(es) now present Sinus rhythm no longer present Electronically Signed On 05-12-2020 13:52:46 OXIDATION ENGINEER by Bari Esquivel [email or web address] <ELECTRONICALLY SIGNED> By: Bari Esquivel MD, FACC 05/12/20 1352 0855 Bari Esquivel MD, [facility] /EPI
[2020-05-12 15:45] VITALS: BP 172/97
[2020-05-12 20:00] VITALS: BP 187/83
[2020-05-12 22:38] VITALS: BP 186/73
[2020-05-12 23:45] VITALS: BP 203/108
[2020-05-13 04:00] VITALS: BP 207/78
--- NOTE | 2020-05-13 07:43 | NUR ---
PATIENT ARIVED ON FLOOR FROM ER AT 2330. PATIENT ADMISSION HISTORY AND ASSESSMENT WAS COMPLETED CHARTED. PATIENT IS ON OXGYEN AT 2L PER NASAL CANNULA. IV REMAINS SALINE LOCKED. PATIENT REMAINS SHORT OF AIR WITH LUNGS WHEEZY AND DIMINISHED. WILL CONTINUE TO MONITOR.
[2020-05-13 08:18] VITALS: BP 163/94
--- NOTE | 2020-05-13 09:39 | NUR ---
CM SPOKE TO THE PT TO DISCUSS CM ASSESSMENT. PT A&O, AND INDEPENDENT WITH ADL'S. PT RESIDES AT HOME WITH HIS AUNT. PT OWNS 0 DME. PT CURRENTLY ON 2L O2 AND DOES NOT HAVE HOME OXYGEN. PT HAS HX OF HH, BUT COULD NOT RECALL THE NAME. PT HAS 0 HX OF SNF. CM WILL REMAIN AVAILABLE TO ASSIST WITH D/C PLANNING NEEDED.
[2020-05-13 10:46] LABS: CALCIUM 8.6 mg/dL (8.5-10.1); CREATININE 1.4 mg/dL (0.6-1.3)
[2020-05-13 11:01] LABS: HEMATOCRIT 38.2 % (42.0-52.0); HEMOGLOBIN 12.7 gm/dL (14.0-18.0); MCH 31.5 pg (26.0-34.0); MCHC 33.2 g/dL (28.0-37.0); MCV 94.9 fL (80.0-100.0); MPV 6.7 fl. (7.2-11.1); RBC 4.03 mil/uL (4.50-6.00); WBC 16.2 thou/uL (4.0-11.0)
[2020-05-13 11:40] VITALS: BP 100/61
--- NOTE | 2020-05-13 13:18 | NUR ---
PT REFUSING TO WEAR HEART MONITOR. NOTIFIED. SWITCH TO M/S STATUS.
--- NOTE | 2020-05-13 18:52 | NUR ---
PT A&Ox4. UP STB ASSIST. ON 2LO2. REFUSED TELE MONITOR. M/S STATUS. ANXIOUS AT TIMES. CALL LIGHT WITHIN REACH.
[2020-05-13 20:00] VITALS: BP 179/94
--- NOTE | 2020-05-14 05:13 | NUR ---
PATIENT SLEPT WELL OFF AND ON DURING THE NIGHT. PT VOIDS PER URINAL. PT UP WITH ASSIST TO BATHROOM FOR BOWEL MOVEMENT. PT ON O2 @ 2LITERS PER NASAL CANNULA. PT WITH 2+ EDEMA IN LOWER EXTREMITIES. PT DENIES PAIN ON THIS SHIFT. PT WITH SALINE LOCK IN RT FOREARM; PATENT. PT DENIES NEEDS AT THIS TIME. FREQUENTLY USED ITEMS AND CALL LIGHT WITHIN REACH. WILL CONTINUE TO MONITOR.
[2020-05-14 07:30] VITALS: BP 167/81
[2020-05-14 08:18] LABS: CREATININE 1.1 mg/dL (0.6-1.3); POTASSIUM 3.9 mmol/L (3.5-5.1)
[2020-05-14 08:21] LABS: PHOSPHORUS* 2.8 mg/dL (2.5-4.9)
--- NOTE | 2020-05-14 11:09 | NUR ---
CM INFORMED DURING PRIME ROUNDING OF THE PLAN OF CARE FOR THE PT. PLAN FOR PT TO REMAIN INPT FOR 2 MORE DAYS. PT MAY NEED HH AND HOME OXYGEN AT D/C. CM WILL REMAIN AVAILABLE TO ASSIST AND FOLLOW NEEDED.
--- NOTE | 2020-05-14 17:30 | NUR ---
ASSUMED CARE OF PATIENT AT THIS TIME. REPORT RECEIVED FROM NASIM.
[2020-05-14 20:00] VITALS: BP 175/100
--- NOTE | 2020-05-15 05:36 | NUR ---
ASSUMED PT'S CARE @ 1900. ALERT AND ORIENTED. BP WAS HIGH UBT PT DID NOT WANT ANY BP MEDS VOICED TO NURSING THAT HIS BP DROPS VERY EASY. PT SLEPT OFF AND. PRN PAIN MEDS GIVEN THIS SHIFT. PT VOIDED VIA URINALS. CALL LIGHT WITHIN REACH. HOURLY ROUNDINGS MADE. WILL CONTINUE TO MONITOR.
[2020-05-15 07:55] VITALS: BP 207/103
[2020-05-15 09:15] LABS: CALCIUM 8.8 mg/dL (8.5-10.1); CREATININE 1.2 mg/dL (0.6-1.3); POTASSIUM 4.6 mmol/L (3.5-5.1)
[2020-05-15 09:53] LABS: HEMATOCRIT 38.5 % (42.0-52.0); HEMOGLOBIN 12.4 gm/dL (14.0-18.0); MCHC 32.2 g/dL (28.0-37.0); MCV 96.3 fL (80.0-100.0); MPV 7.1 fl. (7.2-11.1); NUCLEATED RBCS 0 /100WBC; RDW-CV 18.4 % (10.5-14.5); WBC 16.6 thou/uL (4.0-11.0)
[2020-05-15 09:54] LABS: PLATELET COUNT* 316 thou/uL (150-400)
[2020-05-15 10:28] LABS: ABSOLUTE LYMPHOCYTES 0.2 thou/uL (0.8-5.3); ABSOLUTE MONOCYTES 0.7 thou/uL (0.0-1.2); ABSOLUTE NEUTROPHILS 15.8 thou/uL (1.6-8.1); MICROCYTES 1+; PLATELET ESTIMATE ADEQUATE
[2020-05-15 10:29] LABS: CLUMPED PLTS FEW
[2020-05-15 16:21] VITALS: BP 183/90
--- NOTE | 2020-05-15 17:30 | NUR ---
POTENTIAL DISCHARGE FOR TOMORROW. MAY NEED HOME O2 AND HH. FAXED H&P AND FACE SHEET TO [phone]. WILL NEED TO CONTACT THEM ([phone]) AND FAX DISCHARGE ORDERS AND O2 SATS TO THEM IF O2/HH NEEDED.
--- NOTE | 2020-05-15 19:30 | NUR ---
PATIENT RESTING IN BED. PATIENT IS UP AD MACIEL IN ROOM. PATIENT HAS OXYGEN ON AT 3L/NC AND PATIENT IS SHORT OF AIR WITH EXERTION. PATIENT HAS COMPLAINTS OF CHRONIC NECK PAIN, TREATED PARTIALLY WITH MEDICAITON. PATIENT HAS GOOD APPETITE. PATIENT DENIES ANY NEEDS AT THIS TIME. [facility]
[2020-05-15 20:00] VITALS: BP 210/105
[2020-05-16 00:35] VITALS: BP 183/95
[2020-05-16 04:31] VITALS: BP 153/88
--- NOTE | 2020-05-16 05:39 | NUR ---
ASSUMED PT'S CARE BEGINNING OF THIS PM SHIFT. ALERT AND ORIENTED. BP HIGH THIS SHIFT. TREATED FOR HTN. WAS ON 2L BEGINNING OF SHIFT. TITRATED TO 3L C/O SOB. RT ORDERED PT ABLE TO ASSIST SELF IN VIODING. URINALS EMPTIED ACCORDINGLY. PT EONCOURAGED TO CALL WHEN NEEDING ASSISTANCE. CALL LIGHT WITHIN REACH. WILL CONTINUE TO MONITOR.
[2020-05-16 08:00] VITALS: BP 191/103
[2020-05-16 08:54] LABS: ABSOLUTE LYMPHOCYTES 0.3 thou/uL (0.8-5.3); ABSOLUTE MONOCYTES 0.5 thou/uL (0.0-1.2); ABSOLUTE NEUTROPHILS 13.6 thou/uL (1.6-8.1); BASOPHILS 0.1 %; HEMOGLOBIN 12.3 gm/dL (14.0-18.0); LYMPHOCYTES 1.8 %; MCH 30.8 pg (26.0-34.0); MCHC 32.4 g/dL (28.0-37.0); MONOCYTES 3.7 %; MPV 6.9 fl. (7.2-11.1); NUCLEATED RBCS 0 /100WBC; PLATELET COUNT* 270 thou/uL (150-400); POLYS 94.4 %; RDW-CV 19.1 % (10.5-14.5); WBC 14.4 thou/uL (4.0-11.0)
[2020-05-16 09:02] LABS: CALCIUM 8.9 mg/dL (8.5-10.1); CREATININE 1.1 mg/dL (0.6-1.3); POTASSIUM 4.4 mmol/L (3.5-5.1)
[2020-05-16 12:26] VITALS: BP 178/11
[2020-05-16 14:00] VITALS: BP 157/82
--- NOTE | 2020-05-16 15:00 | NUR ---
NO DISCHARGE TODAY. PT.CONTINUES ON IVAB. ALSO HYPERTENSIVE. CONTINUES ON 3L/NC OF O2
--- NOTE | 2020-05-16 17:13 | NUR ---
THIS NURSE AGREES WITH ASSESSMENT BY ARLENE PHILLIPS
--- NOTE | 2020-05-16 18:56 | NUR ---
PT REMAINS ALERT AND ORIENTED. PT ON 3L O2 PER NC. PT UP INDEPENDENTLY. PT VOIDS PER URINAL A LARGE AMOUNT. PRN BREATHING TREATMENTS GIVEN BY RT. BP ELEVATED AND MEDS GIVEN. VSS. WILL CONTINUE TO MONITOR.
[2020-05-16 19:48] VITALS: BP 166/80
--- NOTE | 2020-05-17 06:20 | NUR ---
PT A&OX4, VSS ON 3L NC, PT UP AD MACIEL, PAIN MEDS REQUESTED FOR CHRONIC PAIN AND GIVEN ORDERED. PT STATES HIS CHRONIC NECK PAIN LEVEL IS "NEVER LESS THAN A 9 OUT OF 10". HOURLY ROUNDINGS COMPLETE, WILL CONTINUE TO MONITOR.
[2020-05-17 07:30] VITALS: BP 182/74
--- NOTE | 2020-05-17 15:48 | NUR ---
THIS NURSE AGREES WITH ASSESSMENT BY ARLENE PHILLIPS
[2020-05-17 16:00] VITALS: BP 131/70
[2020-05-17 16:30] VITALS: BP 172/84
[2020-05-17 16:31] VITALS: BP 158/102
[2020-05-17 16:32] VITALS: BP 157/87
--- NOTE | 2020-05-17 17:53 | NUR ---
PT REMAINS ALERT AND ORIENTED. PT REMAINS ON 3L O2 PER NC. NEEDS TO BE REMINDED TO KEEP IT ON AT TIMES. PT VERY SOA UPON EXERTION. STATES HE IS VERY TIRED THIS EVENING. INSULN GIVEN PER SLIDING SCALE. PT STEADY WITHOUT ASSISTANCE. PT VOIDS PER URINAL. IV REPLACED. WILL CONTINUE TO MONITOR.
[2020-05-17 20:00] VITALS: BP 161/88
[2020-05-18] VITALS: BP 138/75
--- NOTE | 2020-05-18 04:46 | NUR ---
PATIENT AWAKE MOST OF THE NIGHT. PT SHOWERED AT BEGINNING OF SHIFT. ANTIBIOTICS INFUSING PER DR ORDER. PT REQUESTED PAIN MEDICATION AND RECEIVED NORCO 10/ 1 TAB X2. PT SAID THIS BRINGS NECK PAIN FROM 01/16 TO 08/16. PT VOIDS YELLOW URINE PER URINAL. PT ON O2 @ 3 LITERS PER NASAL CANNULA. FREQUENTLY USED ITEMS AND CALL LIGHT WITHIN REACH. WILL CONTINUE TO MONITOR.
[2020-05-18 05:07] VITALS: BP 132/81
[2020-05-18 05:36] LABS: GLYCOHEMOGLOBIN (HGB A1C) 6.7 % (4.8-5.6)
[2020-05-18 08:10] VITALS: BP 191/100
--- NOTE | 2020-05-18 15:57 | NUR ---
THIS NURSE AGREES WITH ASSESSMENT
[2020-05-18 16:29] VITALS: BP 125/75
--- NOTE | 2020-05-18 18:39 | NUR ---
PT REMAINS ALERT AND ORIENTED X 4. PT REMAINS ON 3L O2 PER NC. PT STEADY WITHOUT ASSISTANCE. PT VOIDS PER URINAL CLEAR YELLOW OUTPUT. PT ENCOURAGED TO WATCH CARBS AND FLUID INTAKE. REINFORCED DIABETIC DIET. IV REMAINS IN LEFT UPPER ARM. PAIN CONTROLLED WITH MEDS. WILL CONTINUE TO MONITOR.
[2020-05-19 04:31] LABS: HEMATOCRIT 36.9 % (42.0-52.0); HEMOGLOBIN 12.1 gm/dL (14.0-18.0); MCH 31.5 pg (26.0-34.0); MCHC 32.8 g/dL (28.0-37.0); MPV 7.9 fl. (7.2-11.1); RBC 3.84 mil/uL (4.50-6.00); RDW-CV 19.9 % (10.5-14.5)
[2020-05-19 05:00] LABS: ALBUMIN 3.1 g/dL (3.4-5.0); CALCIUM 8.9 mg/dL (8.5-10.1); CREATININE 1.4 mg/dL (0.6-1.3); MAGNESIUM 2.4 mg/dL (1.8-2.4); POTASSIUM 4.8 mmol/L (3.5-5.1); TOTAL BILIRUBIN 0.5 mg/dL (<0.1-1.0); TOTAL PROTEIN 5.7 g/dL (6.4-8.2)
--- NOTE | 2020-05-19 05:12 | NUR ---
PATIENT AWAKE MOST OF THE NIGHT. PT HAD NEW IV STARTED ON LT WRIST; ANTIBIOTICS INFUSED PER DR ORDER. PT GIVEN HYDROCODONE 10/325MG PO FOR NECK/GENERALIZED PAIN. PT DENIES NEEDS AT THIS TIME. WILL CONTINUE TO MONITOR.
[2020-05-19] MEDS ORDERED: GLUCOPHAGE850 MG PO (07:40)
[2020-05-19] MEDS ORDERED: MUCINEX600 MG PO (07:40)
[2020-05-19] MEDS ORDERED: NORVASC10 MG PO (07:40)
[2020-05-19] MEDS ORDERED: GLUCOTROL XL2.5 MG PO (07:40)
[2020-05-19] MEDS ORDERED: LASIX 40 MG TAB40 M1 PO (07:40)
[2020-05-19] MEDS ORDERED: PREDNISONE 10 M10 M1 PO (07:40)
[2020-05-19] MEDS ORDERED: DOXYCYCLINE 10100 MG PO (07:42)
[2020-05-19 08:00] VITALS: BP 170/85
[2020-05-19 12:42] VITALS: BP 170/85
--- NOTE | 2020-05-19 14:00 | NUR ---
SAID PT.DECLINDED HOME HEALTH HE DID NOT INTEND TO BE HOME BOUND. DISCUSSED AGAIN WITH HIM. HE DECLINED. RESTING AND EXERCISE SAT DONE. PT.NEEDS 2L/NC WITH ACTIVITY/ROOM AIR WITH REST. FAXED FACE SHEET, ORDER,SATS AND PROGRESS NOTE TO ANDREW/VANDA. PT.SIGNED VENDOR CHOICE FORM. ANDREW/VANDA WILL DELIVER A PORTABLE TANK TO HOSPITAL. INSTRUCTED PT.TO CALL NUMBER ON TANK TO SET UP HOME DELIVERY.
[2020-05-19 15:26] VITALS: BP 170/85
== END 2020-05-19 16:00 | disposition home or self-care (01) | DRG 291 ==
LOC: M.ERS 07:21 → M.TBA-ER 12:01 → M.2W 12:01 → M.3W 12:01 → M.2W 22:56 → M.3W 05-14 18:30
PROVIDERS: Family Medicine; Internal Medicine; ADMIT Internal Medicine; ATTEND Internal Medicine
DX: I11.0 Hypertensive heart disease with heart failure (principal); J96.01 Acute respiratory failure with hypoxia; R65.11 Systemic inflammatory response syndrome (SIRS) of non-infectious origin with acute organ dysfunction; J15.9 Unspecified bacterial pneumonia; J44.1 Chronic obstructive pulmonary disease with (acute) exacerbation; R73.9 Hyperglycemia, unspecified; I50.33 Acute on chronic diastolic (congestive) heart failure; G89.29 Other chronic pain; Z20.822 Contact with and (suspected) exposure to COVID-19; Z79.899 Other long term (current) drug therapy; Z91.018 Allergy to other foods; Z87.891 Personal history of nicotine dependence

== ENCOUNTER 2020-07-05 13:13 | Inpatient (IN) | payer OTHER, MEDICAID ==
[~2020-07-05] VITALS: Ht 185.4 cm; Wt 130.6 kg
[~2020-07-05 13:13] MED LIST changes: +DOXYCYCLINE 10100 MG PO; +GLUCOPHAGE850 MG PO; +GLUCOTROL XL2.5 MG PO; +MUCINEX600 MG PO; +NORVASC10 MG PO
[2020-07-05 13:18] VITALS: BP 126/81
[2020-07-05 13:57] LABS: HEMATOCRIT 40.4 % (42.0-52.0); HEMOGLOBIN 13.2 gm/dL (14.0-18.0); MCH 31.1 pg (26.0-34.0); MCHC 32.8 g/dL (28.0-37.0); MCV 94.9 fL (80.0-100.0); MPV 7.1 fl. (7.2-11.1); NUCLEATED RBCS 0 /100WBC; PLATELET COUNT* 433 thou/uL (150-400); RBC 4.25 mil/uL (4.50-6.00); RDW-CV 19.3 % (10.5-14.5); WBC 16.4 thou/uL (4.0-11.0)
[2020-07-05 14:14] LABS: CALCIUM 8.8 mg/dL (8.5-10.1); CREATININE 1.4 mg/dL (0.6-1.3)
[2020-07-05 14:16] LABS: POTASSIUM 2.7 mmol/L (3.5-5.1)
[2020-07-05 14:25] LABS: ABSOLUTE LYMPHOCYTES 0.2 thou/uL (0.8-5.3); ABSOLUTE NEUTROPHILS 16.2 thou/uL (1.6-8.1)
[2020-07-05 14:26] LABS: ANISOCYTOSIS 1+; PLATELET ESTIMATE INCREASED
[2020-07-05 14:27] LABS: ALBUMIN 2.7 g/dL (3.4-5.0); CK-MB MASS 0.5 ng/mL (<0.5-3.6); MAGNESIUM 1.5 mg/dL (1.8-2.4); OVALOCYTES Occasional; TOTAL BILIRUBIN 0.8 mg/dL (<0.1-1.0); TOTAL PROTEIN 6.3 g/dL (6.4-8.2)
[2020-07-05 15:00] VITALS: BP 130/82
[2020-07-05 15:13] VITALS: BP 122/81
[2020-07-05 16:39] LABS: CALCIUM 8.8 mg/dL (8.5-10.1); CREATININE 1.3 mg/dL (0.6-1.3); POTASSIUM 3.1 mmol/L (3.5-5.1)
[2020-07-05 16:42] LABS: PHOSPHORUS* 2.6 mg/dL (2.5-4.9)
[2020-07-05 19:55] LABS: AMP/METHAMP Negative (Negative); BARBITURATES Negative (Negative); BENZODIAZEPINES Negative (Negative); COCAINE Negative (Negative); METHADONE Negative (Negative); OPIATES POSITIVE (Negative); PCP Negative (Negative); THC Negative (Negative)
[2020-07-05 20:00] VITALS: BP 122/74
[2020-07-06] VITALS: BP 117/57
[2020-07-06 03:41] VITALS: BP 125/53
[2020-07-06 05:03] LABS: CALCIUM 8.3 mg/dL (8.5-10.1); CREATININE 1.4 mg/dL (0.6-1.3)
[2020-07-06 05:08] LABS: ABSOLUTE LYMPHOCYTES 0.4 thou/uL (0.8-5.3); ABSOLUTE MONOCYTES 0.1 thou/uL (0.0-1.2); BASOPHILS 0.1 %; HEMATOCRIT 38.7 % (42.0-52.0); HEMOGLOBIN 12.5 gm/dL (14.0-18.0); LYMPHOCYTES 3.2 %; MCH 30.7 pg (26.0-34.0); MCHC 32.3 g/dL (28.0-37.0); MONOCYTES 1.1 %; MPV 7.5 fl. (7.2-11.1); NUCLEATED RBCS 0 /100WBC; PLATELET COUNT* 369 thou/uL (150-400); POLYS 95.6 %; RBC 4.08 mil/uL (4.50-6.00); RDW-CV 19.4 % (10.5-14.5); WBC 12.5 thou/uL (4.0-11.0)
[2020-07-06 05:22] LABS: PREALBUMIN 17.6 mg/dL (18.0-35.7)
[2020-07-06 08:38] VITALS: BP 131/97
[2020-07-06 12:00] VITALS: BP 128/71
--- NOTE | 2020-07-06 12:20 | EKG ---
[place] [address] ELECTROCARDIOGRAM REPORT Name: AKI VIEIRA Room: [address] ADM IN ..#: [id number] Admission: 07/05/20 Attend Phys: Kwan Cohn, Discharge: Date of : 62 Date of Service: 07/05/20 1319 Report #: [id number] THIS REPORT FOR: //name// [facility] ED Test Date: 2020-07-05 Test Time: 13:19:59 Pat Name: AKI VIEIRA Department: Room: [facility] Gender: M Garnetter: STEVE : 1960 Requested By: Ariel Guadarrama Order Number: [id number] MD: Tone Ford Measurements Intervals [place] Rate: 115 P: 63 ND: 143 QRS: 71 QRSD: 105 T: 62 QT: 364 QTc: 504 Interpretive Statements Sinus tachycardia Prolonged QT interval Baseline wander in lead(s) I,V2,V4 Compared to ECG 05/12/2020 08:55:53 Ventricular premature complex(es) no longer present Electronically Signed On 07-06-2020 12:20:37 LOLLYPOP MACHINE OPERATOR by Tone Ford [email or web address] <ELECTRONICALLY SIGNED> By: Tone Ford MD, FACC 07/06/20 1220 1319 1319 Tone Ford MD, FACC /EPI
[2020-07-06 16:00] VITALS: BP 106/78
[2020-07-06 20:30] VITALS: BP 140/77
[2020-07-07] VITALS (7 sets, daily range): BP systolic 124–167; BP diastolic 66–89
[2020-07-07 02:06] LABS: GLYCOHEMOGLOBIN (HGB A1C) 6.1 % (4.8-5.6)
[2020-07-07 04:34] LABS: HEMATOCRIT 36.6 % (42.0-52.0); HEMOGLOBIN 11.7 gm/dL (14.0-18.0); MCH 30.6 pg (26.0-34.0); MCHC 31.8 g/dL (28.0-37.0); MCV 96.2 fL (80.0-100.0); MPV 7.3 fl. (7.2-11.1); NUCLEATED RBCS 0 /100WBC; PLATELET COUNT* 359 thou/uL (150-400); RBC 3.81 mil/uL (4.50-6.00); RDW-CV 19.1 % (10.5-14.5); WBC 25.6 thou/uL (4.0-11.0)
[2020-07-07 04:52] LABS: ALBUMIN 2.5 g/dL (3.4-5.0); CALCIUM 8.8 mg/dL (8.5-10.1); CREATININE 1.3 mg/dL (0.6-1.3); POTASSIUM 3.8 mmol/L (3.5-5.1); TOTAL BILIRUBIN 0.3 mg/dL (<0.1-1.0); TOTAL PROTEIN 5.6 g/dL (6.4-8.2)
[2020-07-07 05:43] LABS: ABSOLUTE LYMPHOCYTES 0.8 thou/uL (0.8-5.3); ABSOLUTE MONOCYTES 1.8 thou/uL (0.0-1.2); ANISOCYTOSIS 1+; PLATELET ESTIMATE ADEQUATE; POIKILOCYTOSIS 1+
[2020-07-08 04:21] VITALS: BP 150/65
[2020-07-08 08:00] VITALS: BP 160/97
[2020-07-08 11:10] VITALS: BP 147/121
[2020-07-08 16:13] VITALS: BP 138/57
[2020-07-08 20:45] VITALS: BP 157/70
[2020-07-09 02:28] VITALS: BP 149/65
[2020-07-09 04:56] LABS: HEMATOCRIT 36.3 % (42.0-52.0); HEMOGLOBIN 11.5 gm/dL (14.0-18.0); MCH 30.8 pg (26.0-34.0); MCHC 31.7 g/dL (28.0-37.0); MCV 97.2 fL (80.0-100.0); MPV 7.4 fl. (7.2-11.1); RBC 3.73 mil/uL (4.50-6.00); RDW-CV 19.8 % (10.5-14.5); WBC 12.7 thou/uL (4.0-11.0)
[2020-07-09 05:32] LABS: CALCIUM 8.5 mg/dL (8.5-10.1); CREATININE 1.3 mg/dL (0.6-1.3); MAGNESIUM 1.7 mg/dL (1.8-2.4); POTASSIUM 4.7 mmol/L (3.5-5.1)
[2020-07-09 05:57] VITALS: BP 171/98
[2020-07-09 08:00] VITALS: BP 152/76
[2020-07-09 12:00] VITALS: BP 160/102
[2020-07-09 17:02] VITALS: BP 131/67
[2020-07-09 19:45] VITALS: BP 97/70
[2020-07-10] VITALS: BP 172/94
[2020-07-10 04:00] VITALS: BP 156/64
[2020-07-10 08:16] VITALS: BP 144/92
[2020-07-10] MEDS ORDERED: DOXYCYCLINE 10100 MG PO (09:51)
[2020-07-10] MEDS ORDERED: PREDNISONE 10 M10 MG PO (09:51)
[2020-07-10] MEDS ORDERED: SYMBICORT160 MCG/4. INH (09:51)
[2020-07-10 10:38] VITALS: BP 144/92
== END 2020-07-10 11:14 | disposition home or self-care (01) | DRG 177 ==
LOC: M.ERS 13:13 → M.2W 14:09 → M.TBA-ER 14:09 → M.2W 15:12
PROVIDERS: Family Medicine; Internal Medicine; ADMIT Internal Medicine; ATTEND Internal Medicine
PROC: 5A0935A Assistance with Respiratory Ventilation, Less than 24 Consecutive Hours, High Flow/Velocity Cannula (ICD-10-PCS; principal; 2020-07-07)
PROC: 05HF33Z Insertion of Infusion Device into Left Cephalic Vein, Percutaneous Approach (ICD-10-PCS; 2020-07-08)
DX: J15.6 Pneumonia due to other Gram-negative bacteria (principal); R65.11 Systemic inflammatory response syndrome (SIRS) of non-infectious origin with acute organ dysfunction; J96.21 Acute and chronic respiratory failure with hypoxia; I50.33 Acute on chronic diastolic (congestive) heart failure; J44.1 Chronic obstructive pulmonary disease with (acute) exacerbation; E87.1 Hypo-osmolality and hyponatremia; J44.0 Chronic obstructive pulmonary disease with (acute) lower respiratory infection; I11.0 Hypertensive heart disease with heart failure; M25.562 Pain in left knee; Z20.822 Contact with and (suspected) exposure to COVID-19; G89.29 Other chronic pain; M25.579 Pain in unspecified ankle and joints of unspecified foot; M25.512 Pain in left shoulder; E87.6 Hypokalemia; M19.90 Unspecified osteoarthritis, unspecified site; J20.9 Acute bronchitis, unspecified; R73.9 Hyperglycemia, unspecified; R73.03 Prediabetes; Z91.012 Allergy to eggs; Z87.891 Personal history of nicotine dependence; Z79.899 Other long term (current) drug therapy

== ENCOUNTER 2020-08-01 14:22 | Observation (INO) | payer OTHER, MEDICAID ==
[~2020-08-01] VITALS: Ht 185.4 cm; Wt 128.8 kg
[~2020-08-01 14:22] MED LIST changes: +SYMBICORT160 MCG/4. INH
[2020-08-01 14:30] VITALS: BP 140/86
[2020-08-01 15:12] LABS: HEMATOCRIT 36.5 % (42.0-52.0); MCH 31.3 pg (26.0-34.0); MCHC 32.9 g/dL (28.0-37.0); MPV 6.7 fl. (7.2-11.1); NUCLEATED RBCS 0 /100WBC; PLATELET COUNT* 417 thou/uL (150-400); RBC 3.85 mil/uL (4.50-6.00); RDW-CV 18.6 % (10.5-14.5); WBC 16.8 thou/uL (4.0-11.0)
[2020-08-01 15:21] LABS: CALCIUM 8.7 mg/dL (8.5-10.1); CREATININE 1.3 mg/dL (0.6-1.3)
[2020-08-01 15:24] LABS: APTT 21.7 Seconds (25.0-31.3); PROTIME 10.3 Seconds (9.20-11.50)
[2020-08-01 15:35] LABS: ALBUMIN 3.1 g/dL (3.4-5.0); MAGNESIUM 1.9 mg/dL (1.8-2.4); TOTAL BILIRUBIN 0.6 mg/dL (<0.1-1.0); TOTAL PROTEIN 6.9 g/dL (6.4-8.2)
[2020-08-01 15:50] LABS: ABSOLUTE BASOPHILS 0.3 thou/uL (0.0-0.2); ABSOLUTE LYMPHOCYTES 0.5 thou/uL (0.8-5.3); ABSOLUTE MONOCYTES 0.5 thou/uL (0.0-1.2); ABSOLUTE NEUTROPHILS 15.5 thou/uL (1.6-8.1); PLATELET ESTIMATE INCREASED
[2020-08-01 15:51] LABS: ANISOCYTOSIS 1+
[2020-08-01 17:06] VITALS: BP 146/65
[2020-08-01 17:37] VITALS: BP 147/82
[2020-08-01 23:42] VITALS: BP 183/107
[2020-08-02 03:48] VITALS: BP 167/93
[2020-08-02 04:43] LABS: HEMOGLOBIN 11.2 gm/dL (14.0-18.0); MCH 30.8 pg (26.0-34.0); MCHC 32.1 g/dL (28.0-37.0); MCV 95.7 fL (80.0-100.0); MPV 7.3 fl. (7.2-11.1); RBC 3.65 mil/uL (4.50-6.00); RDW-CV 18.7 % (10.5-14.5); WBC 15.4 thou/uL (4.0-11.0)
[2020-08-02 04:55] LABS: CALCIUM 8.8 mg/dL (8.5-10.1); CREATININE 1.4 mg/dL (0.6-1.3); POTASSIUM 4.5 mmol/L (3.5-5.1)
[2020-08-02 08:00] VITALS: BP 147/89
[2020-08-02] MEDS ORDERED: PREDNISONE 20 M20 MG PO (09:59)
[2020-08-02] MEDS ORDERED: NORCO 10-325 T1 EACH PO (09:59)
[2020-08-02] MEDS ORDERED: DOXYCYCLINE 10100 MG PO (09:59)
[2020-08-02 10:11] VITALS: BP 147/89
[2020-08-02 10:20] VITALS: BP 147/89
--- NOTE | 2020-08-04 09:34 | EKG ---
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: JUNIOR : 1960 Requested By: Blas Bradley Order Number: [id number] MD: Bari Esquivel Measurements Intervals [place] Rate: 117 P: 75 VA: 128 QRS: 78 QRSD: 99 T: 69 QT: 328 QTc: 458 Interpretive Statements Sinus tachycardia Atrial premature complex Compared to ECG 07/05/2020 13:19:59 Atrial premature complex(es) now present Prolonged QT interval no longer present Electronically Signed On 08-04-2020 9:34:26 CDT by Bari Esquivel [email or web address] <ELECTRONICALLY SIGNED> By: Bari Esquivel MD, FACC 08/04/20 0934 1456 1456 Bari Esquivel MD, FAC /EPI
== END 2020-08-02 10:47 | disposition home or self-care (01) ==
LOC: M.ERS 14:22 → M.TBA-ER 16:09 → M.2W 17:15
PROVIDERS: Emergency Medicine Emergency Medical Services; ADMIT Family Medicine; ATTEND Family Medicine
DX: J44.1 Chronic obstructive pulmonary disease with (acute) exacerbation (principal); J96.20 Acute and chronic respiratory failure, unspecified whether with hypoxia or hypercapnia; Z20.822 Contact with and (suspected) exposure to COVID-19; E11.9 Type 2 diabetes mellitus without complications; I95.9 Hypotension, unspecified; F32.9 Major depressive disorder, single episode, unspecified; F41.9 Anxiety disorder, unspecified; E66.01 Morbid (severe) obesity due to excess calories; E87.1 Hypo-osmolality and hyponatremia; I10 Essential (primary) hypertension; G89.29 Other chronic pain; Z90.89 Acquired absence of other organs; Z79.899 Other long term (current) drug therapy; Z87.891 Personal history of nicotine dependence; Z91.012 Allergy to eggs; Z68.37 Body mass index [BMI] 37.0-37.9, adult

== ENCOUNTER 2020-08-31 13:27 | Inpatient (IN) | payer OTHER, MEDICAID ==
[~2020-08-31] VITALS: Ht 185.4 cm; Wt 131.1 kg
[~2020-08-31 13:27] MED LIST changes: +PREDNISONE 20 M20 MG PO
[2020-08-31] MEDS ORDERED: HYDROCODON-ACE1 EAC5 PO (13:32)
[2020-08-31 14:59] LABS: ABSOLUTE BASOPHILS 0.1 thou/uL (0.0-0.2); ABSOLUTE EOSINOPHILS 0.1 thou/uL (0.0-0.7); ABSOLUTE MONOCYTES 0.6 thou/uL (0.0-1.2); ABSOLUTE NEUTROPHILS 6.9 thou/uL (1.6-8.1); BASOPHILS 1.4 %; EOSINOPHILS 1.1 %; HEMATOCRIT 37.1 % (42.0-52.0); HEMOGLOBIN 12.4 gm/dL (14.0-18.0); LYMPHOCYTES 20.5 %; MCH 32.6 pg (26.0-34.0); MCHC 33.4 g/dL (28.0-37.0); MCV 97.8 fL (80.0-100.0); MONOCYTES 6.1 %; MPV 6.6 fl. (7.2-11.1); NUCLEATED RBCS 0 /100WBC; PLATELET COUNT* 410 thou/uL (150-400); POLYS 70.9 %; RBC 3.79 mil/uL (4.50-6.00); WBC 9.7 thou/uL (4.0-11.0)
[2020-08-31 15:12] LABS: APTT 25.3 Seconds (25.0-31.3); POTASSIUM 2.8 mmol/L (3.5-5.1); PROTIME 10.6 Seconds (9.20-11.50)
[2020-08-31 15:19] LABS: MAGNESIUM 1.6 mg/dL (1.8-2.4); TOTAL BILIRUBIN 0.4 mg/dL (<0.1-1.0); TOTAL PROTEIN 6.5 g/dL (6.4-8.2)
[2020-08-31 18:11] VITALS: BP 182/99
[2020-08-31 18:22] VITALS: BP 163/84
--- NOTE | 2020-08-31 19:24 | NUR ---
PT ADMITTED TO ROOM 228 VIA CART FROM ED AT APPROXIMATELY 1830. REPORT RECEIVED FROM VENU RUBIO. PT ORIENTED TO ROOM AND CALL LIGHT. ADMISSION ASSESSMENT AND HISTORY CHARTED. SEPSIS NEGATIVE. TRACING ST WITH OCCASIONAL PVC'S ON THE RIBBON CLEANER. RATE IN THE 110'S. EDEMA NOTED TO BILATERAL LE'S. ON 3L NC SAT MID 90'S. WHEEZES NOTED. PT STATES SHORTNESS OF BREATH WITH EXERTION. PT UP WITH 1 ASSIST-STATES USES WALKER PRN AT HOME. ELECTROLYTES NOTED. DR NAVAS NOTIFIED FOR ELECTROLTE PROTOCOL. AWAITING ORDERS. CALL LIGHT WITHIN REACH. WILL CONTINUE PLAN OF CARE.
[2020-08-31 20:00] VITALS: BP 165/85
[2020-08-31 22:19] LABS: AMP/METHAMP Negative (Negative); BARBITURATES Negative (Negative); BENZODIAZEPINES Negative (Negative); COCAINE Negative (Negative); METHADONE Negative (Negative); OPIATES Negative (Negative); PCP Negative (Negative); THC Negative (Negative)
[2020-09-01] VITALS (7 sets, daily range): BP systolic 129–179; BP diastolic 79–99
[2020-09-01 04:54] LABS: HEMATOCRIT 36.3 % (42.0-52.0); HEMOGLOBIN 11.7 gm/dL (14.0-18.0); MCH 31.5 pg (26.0-34.0); MCHC 32.3 g/dL (28.0-37.0); MCV 97.5 fL (80.0-100.0); MPV 6.9 fl. (7.2-11.1); NUCLEATED RBCS 0 /100WBC; PLATELET COUNT* 364 thou/uL (150-400); RBC 3.72 mil/uL (4.50-6.00); RDW-CV 20.2 % (10.5-14.5); WBC 6.9 thou/uL (4.0-11.0)
[2020-09-01 05:11] LABS: MAGNESIUM 1.6 mg/dL (1.8-2.4)
[2020-09-01 05:17] LABS: POTASSIUM 4.2 mmol/L (3.5-5.1)
[2020-09-01 05:31] LABS: ABSOLUTE LYMPHOCYTES 0.1 thou/uL (0.8-5.3); ABSOLUTE MONOCYTES 0.1 thou/uL (0.0-1.2); ABSOLUTE NEUTROPHILS 6.8 thou/uL (1.6-8.1); PLATELET ESTIMATE ADEQUATE
[2020-09-01 05:32] LABS: ANISOCYTOSIS 1+; POIKILOCYTOSIS 1+
--- NOTE | 2020-09-01 05:44 | NUR ---
ASSUMED CARE OF PT AFTER REPORT AT 1930. PT A&OX4. VSS. PHYSICAL ASSESSMENT COMPLETED AND CHARTED. PT ON O2 AT 3L NC. PT TRACING ST/PVC ON TELE. PT PT COMPLAINED OF NECK PAIN-MED GIVEN PER JUL. POTASSIUM 2.3 & MAGNESIUM 1.6-ELECTROLYTE PROTOCOL IN PLACE. CALL LIGHT WITHIN REACH.
--- NOTE | 2020-09-01 09:48 | NUR ---
CM ASSESSMENT: PT IS KNOWN TO THIS CM FROM PREVIOUS ASSESSMENT. PT IS A&O, NORMALY INDEPENDENT WITH ADL'S, ACTIVE AND DRIVES. PT RESIDES AT HOME ALONE. PT USES HOME O2 SUPPLIED BY [employer] @ 2L PRN. PT OWNS A WALKER. PT HAS PAST HH HX. PT HAS 0 HX OF SNF. PT MAY BENEFIT FROM HH AT D/C. CM TO ASK [facility] HH REP TO ASSESS PT. CM WILL REMAIN AVAILABLE TO ASSIST AND FOLLOW NEEDED.
--- NOTE | 2020-09-01 11:13 | EKG ---
[place] [address] ELECTROCARDIOGRAM REPORT Name: AKI VIEIRA Room: [address] ADM IN .R.#: [id number] Admission: 08/31/20 Attend Phys: Kwan Cohn, Discharge: Date of : 62 Date of Service: 08/31/20 1330 Report #: [id number] THIS REPORT FOR: //name// [facility] ED Test Date: 2020-08-31 Test Time: 13:30:09 Pat Name: AKI VIEIRA Department: Room: [facility] Gender: M Frit Coater: ANDERS : 1960 Requested By: Blas Bradley Order Number: [id number] MD: Bari Esquivel Measurements Intervals [place] Rate: 131 P: 78 [place]: 131 QRS: 72 QRSD: 96 T: 27 QT: 314 QTc: 464 Interpretive Statements Sinus tachycardia Multiform ventricular premature complexes Compared to ECG 08/01/2020 14:56:07 Ventricular premature complex(es) now present Atrial premature complex(es) no longer present Electronically Signed On 09-01-2020 11:13:20 CDT by Bari Esquivel [email or web address] <ELECTRONICALLY SIGNED> By: Bari Esquivel MD, FACC 09/01/20 1113 1330 1330 Bari Esquivel MD, FAC /EPI
--- NOTE | 2020-09-01 11:41 | NUR ---
ASSUMED CARE OF PT AT 0730. PT SITTING AT EDGE OF BED WAITING FOR BREAKFAST. A&0X4, COMPLAINS OF CHRONIC PAIN TO NECK-TREATED WITH PRN NORCO WITH PARTIAL RELIEF. PT ON 3L NC SAT MID 90'S. PT HAS SHORTNESS OF BREATH WITH EXERTION. TRACING ST ON THE CAMP ASSISTANT-RATE IN THE 110'S. PT UP WITH 1 ASSIST TO BATHROOM. LUE MIDLINE PLACED TODAY BY STILL PUMP OPERATORFLOR. PT GOAL FOR TODAY IS DIURESIS, PULMONARY CONSULT AND IV ABX, IV STEROIDS. AM ASSESSMENT CHARTED. MEDICATIONS PER JUL. PT REPOSITIONS SELF. HOURLY ROUNDING OBSERVED. BED IN LOW POSITION. CALL LIGHT WITHIN REACH. WILL CONTINUE PLAN OF CARE.
[2020-09-01 20:03] LABS: BE 0.8 mmol/L (-2 to +3); PCO2 35.3 mmHg (35.0-45.0); pH 7.457 (7.340-7.450)
[2020-09-01 20:14] LABS: PO2 52.5 mmHg (75.0-100.0)
[2020-09-01 23:06] LABS: GLYCOHEMOGLOBIN (HGB A1C) 6.3 % (4.8-5.6)
[2020-09-02 04:00] VITALS: BP 142/76
[2020-09-02 04:41] LABS: ABSOLUTE BASOPHILS 0.1 thou/uL (0.0-0.2); ABSOLUTE LYMPHOCYTES 0.3 thou/uL (0.8-5.3); ABSOLUTE MONOCYTES 0.3 thou/uL (0.0-1.2); ABSOLUTE NEUTROPHILS 15.3 thou/uL (1.6-8.1); BASOPHILS 0.5 %; HEMATOCRIT 35.2 % (42.0-52.0); HEMOGLOBIN 11.3 gm/dL (14.0-18.0); LYMPHOCYTES 1.9 %; MCH 31.3 pg (26.0-34.0); MCHC 32.1 g/dL (28.0-37.0); MCV 97.6 fL (80.0-100.0); MONOCYTES 1.9 %; MPV 7.2 fl. (7.2-11.1); NUCLEATED RBCS 0 /100WBC; PLATELET COUNT* 365 thou/uL (150-400); POLYS 95.7 %; RBC 3.61 mil/uL (4.50-6.00); RDW-CV 19.4 % (10.5-14.5)
--- NOTE | 2020-09-02 05:21 | NUR ---
ASSUMED CARE OF PT AFTER REPORT AT 1930. PT A&OX4. VSS. PHYSICAL ASSESSMENT COMPLETED AND CHARTED. PT WITH CRITICAL ABG-INCREASED O2 TO 5L NC WITH O2 SAT OF 97%. SOB WITH ACTIVITY NOTED. TACHYPNEIC. PT TRACING ST/PVC ON TELE. MRSA SWAB SENT TO LAB. PT COMPLAINED OF NECK & BACK PAIN-MED GIVEN PER JUL. CALL LIGHT WITHIN REACH.
[2020-09-02 05:42] LABS: ALBUMIN 3.2 g/dL (3.4-5.0); CALCIUM 8.6 mg/dL (8.5-10.1); CREATININE 1.1 mg/dL (0.6-1.3); POTASSIUM 4.8 mmol/L (3.5-5.1); TOTAL BILIRUBIN 0.4 mg/dL (<0.1-1.0); TOTAL PROTEIN 6.1 g/dL (6.4-8.2)
[2020-09-02 08:00] VITALS: BP 148/84
[2020-09-02 11:53] VITALS: BP 158/85
--- NOTE | 2020-09-02 13:24 | NUR ---
RIGHT BASILIC VESSEL ACCESSED FOR 4 PAPUA [place] SINGLE LUMEN PICC. LINE PRE-TRIMMED TO 43CM AND ADVANCED TO THE ZERO BEENA WITH NO RESISTTANCE EMT. UPPER ARM CIRCUMFERENCE ABOVE INSERTION SITE=17 1/2". SHERLOCK MAGNET AND 3CG CONFIRMATION OF TIP TERMINATION AT THE CAVOATRIAL JUNCTION APPRECIATED. GUDIWIRE REMOVED, LINE FLUSHED AND INSERTION SITE DRESSED. REPORT GIVEN TO BEENA LEA.
--- NOTE | 2020-09-02 16:23 | 2DMMODE ---
[place] [address] 2 D/M-MODE ECHOCARDIOGRAM Name: AKI VIEIRA Room: [address] IN .R.#: [id number] Admission: 08/31/20 Attend Phys: Kwan Cohn, Discharge: Date of : 62 Date of Service: 09/02/20 1622 Report #: [id number] THIS REPORT FOR: cc: ANDREW BOWSER MD, HEATHER L. MD Liston, Michael J. MD [facility] ~ APPROVED REPORT Study performed: 09/02/2020 15:10:42 EXAM: Comprehensive 2D, Doppler, and color-flow Echocardiogram Patient Location: In-Patient Room #: 228 Status: routine BSA: 2.44 HR: 72 bpm Rhythm: NSR Other Information Study Quality: Good Indications Dyspnea 2D Dimensions IVSd: 11.59 (7-11mm) LVOT Diam: 24.00 (18-24mm) LVDd: 54.02 mm PWd: 9.61 (7-11mm) Ascending Ao: 36.82 (22-36mm) LVDs: 41.34 (25-40mm) Aortic Root: 40.34 mm Volumes Left Atrial Volume (Systole) LA ESV Index: 33.10 mL/m2 Aortic Valve AoV Peak Wilman.: 1.63 m/s AO Peak Gr.: 10.65 mmHg LVOT Max P.07 mmHg AO Mean Gr.: 5.39 mmHg LVOT Mean P.92 mmHg LVOT Max V: 1.01 m/s AO V2 VTI: 30.97 cm LVOT Mean V: 0.63 m/s AYLIN (VTI): 3.08 cm2 LVOT V1 VTI: 21.06 [place] [address] 2 D/M-MODE ECHOCARDIOGRAM Name: AKI VIEIRA Room: [address] IN ..#: [id number] Admission: 08/31/20 Attend Phys: Kwan Cohn, Discharge: Date of : 62 Date of Service: 09/02/20 1622 Report #: [id number] Mitral Valve E/A Ratio: 1.12 MV Decel. Time: 234.13 ms MV E Max Wilman.: 0.99 m/s MV PHT: 67.90 ms MVA (PHT): 3.24 cm2 TDI E/Lateral E': 5.21 E/Medial E': 5.82 Medial E' Wilman.: 0.17 m/s Lateral E' Wilman.: 0.19 m/s Pulmonary Valve PV Peak Wilman.: 1.01 m/s PV Peak Gr.: 4.12 mmHg Tricuspid Valve RAP Estimate: 5.00 mmHg TR Peak Gr.: 34.99 mmHg RVSP: 40.00 mmHg PA Pressure: 40.00 mmHg Left Ventricle The left ventricle is normal size. There is normal LV segmental wall motion. There is normal left ventricular wall thickness. Left ventricular systolic function is normal. LVEF is 55-60%. Grade II - pseudonormal filling dynamics. Right Ventricle The right ventricle is normal size. The right ventricular systolic function is normal. Atria Left atrium is mildly dilated. The right atrium size is normal. Aortic Valve The aortic valve is normal in structure. No aortic regurgitation is present. There is no aortic valvular stenosis. Mitral Valve The mitral valve is normal in structure. There is no mitral valve regurgitation noted. No evidence of mitral valve stenosis. Tricuspid Valve The tricuspid valve is normal in structure. Trace tricuspid regurgitation. The RVSP is 40-[place] [address] 2 D/M-MODE ECHOCARDIOGRAM Name: ISHAAKI Ariane Room: [address]#: [id number] Admission: 08/31/20 Attend Phys: Kwan Cohn, Discharge: Date of : 62 Date of Service: 09/02/20 1622 Report #: [id number] Pulmonic Valve The pulmonary valve is normal in structure. Mild pulmonic regurgitation. Great Vessels The aortic root is normal in size. IVC is normal in size and collapses >50% with inspiration. Pericardium There is no pericardial effusion. <Conclusion> The left ventricle is normal size. There is normal left ventricular wall thickness. Left ventricular systolic function is normal. LVEF is 55-60%. Grade II - pseudonormal filling dynamics. Left atrium is mildly dilated. Trace tricuspid regurgitation. The RVSP is 40-45 mmHg. IVC is normal in size and collapses >50% with inspiration. <ELECTRONICALLY SIGNED> By: Tone Ford MD, FACC 09/02/20 162 21 21 Tone Ford MD, FACC /INF
[2020-09-02 16:40] VITALS: BP 151/80
--- NOTE | 2020-09-02 17:02 | NUR ---
PT ROUNDS: PT HAS PNUEMONIA. PER TOBY, [facility] CANNOT ACCEPT PT D/T OUT OF NETWORK WITH PT INSURANCE.
[2020-09-02 20:00] VITALS: BP 116/84
[2020-09-03] VITALS (7 sets, daily range): BP systolic 128–163; BP diastolic 56–88
[2020-09-03 05:06] LABS: CALCIUM 8.6 mg/dL (8.5-10.1); CREATININE 1.1 mg/dL (0.6-1.3); MAGNESIUM 1.9 mg/dL (1.8-2.4); POTASSIUM 4.6 mmol/L (3.5-5.1)
--- NOTE | 2020-09-03 15:30 | NUR ---
PLAN OF CARE: PT REMAINS TELE STATUS. PT REMAINS ON IV ABT'S AND 4L O2. PRIOR TO ADMIT PT ON 2L O2. PT MAY NEED NEW ORDER FOR INCREASED 02 IF PT REMAINS ON 4L. PT MAY BENEFIT FROM HH AT D/C. CM ATTEMPTING TO LOCATE HH IN-NETWORK WITH PT'S INSURANCE [employer], [employer], [employer], AND [employer] HAVE ALL DECLINED PT (D/T PT'S INSURANCE BEING OON, NOT BEING ABLE TO ACCEPT ANYMORE [employer] PT'S, OR FULL AND NOT ABLE TO ACCEPT PT'S). CM WILL CONTINUE TO ATTEMPT TO FIND HH FOR PT. CM WILL REMAIN AVAILABLE TO ASSIST AND FOLLOW NEEDED.
--- NOTE | 2020-09-03 20:33 | NUR ---
I ASSUMED CARE OF THE PATIENT AT 0700. HE IS ALERT AND ORIENTED X4 AND IS UP WITH SBA. BED IS IN THE LOW LOCKED POSITION AND CALL LIGHT IS IN REACH. PAIN IS PARTIALLY MANAGED WITH PRN MEDS. HOURLY ROUNDING IS COMPLETED AND PATIENT NEEDS ARE MET. HE IS NOT COMPLIANT WITH HIS OXYGEN OR BIPAP AND WANTS EXTRA BREATHING TREATMENTS INSTEAD, BUT THEN COMPLAINS THAT HE CAN'T SLEEP FOR DAYS. WILL CONTINUE TO MONITOR.
--- NOTE | 2020-09-03 23:34 | CON ---
[address] [address] CONSULTATION Name: ISHAAKI Ariane Room: [address] IN M.R.#: [id number] Admission: 08/31/20 Attend Phys: Kwan Cohn MD Discharge: Date of : 62 Report #: [id number] THIS REPORT FOR: cc: ANDREW BOWSER MD, HEATHER L. MD Pervez, Adeel MD ~ DOC #: [id number] Chucho Donahue MD DATE OF CONSULTATION: 09/01/2020 REQUESTING PHYSICIAN: Kwan Cohn MD. INDICATION FOR CONSULTATION: Shortness of breath. HISTORY OF PRESENT ILLNESS: This is a 60-year-old gentleman who has a history of COPD. I have seen him during a previous admission at this hospital when he also had acute renal failure. He is on long-term oxygen at home. He does take narcotics long-term for pain control as well, has had multiple admissions to this hospital, is once again admitted with acute shortness of breath. He also does have a cough that has brought up small amounts of white as well as yellow sputum. He does not have chest pain. Does have swelling of lower extremities. There is no calf pain. Does not describe recent fever or chills. Has had some blocked nose and nasal discharge, but these are longstanding. At this time, was not complaining of sore throat. He had disturbed sleep at night as well as sleepiness during the day. These are longstanding and not significantly changed compared with his baseline. REVIEW OF SYSTEMS: The patient's review of systems for 12 points is negative, except as mentioned above. PAST MEDICAL HISTORY: COPD, is on oxygen long-term at home, obstructive sleep apnea as well as suspicion of central sleep apnea per clinical history. I had recommended a sleep study. Previously, to my knowledge, he has not had a sleep study. Long-term narcotic use for pain control. Acute renal failure in 2019, baseline creatinine is normal at 1.0. Gastroesophageal reflux disease. Obesity. Last echo shows a normal left ventricular ejection fraction of around 55% with mild elevation in pulmonary artery systolic at around 35. SOCIAL HISTORY: There is an extensive history of smoking in the past. He discontinued around a year ago. Does use long-term narcotics. Does use alcohol as well. I am not aware of any heavy alcohol use; however, I am not able to quantify exactly. No known history of illegal drug use. CURRENT MEDICATION: List in [employer] [place] [address] CONSULTATION Name: ISHAAKI Ariane Room: [address]#: [id number] Admission: 08/31/20 Attend Phys: Kwan Cohn MD Discharge: Date of : 62 Report #: [id number] HOME MEDICATION: List in [employer] reviewed. FAMILY HISTORY: No pertinent family history known at this time. ALLERGIES: REPORTED TO BE ALLERGIC TO EGGS. PHYSICAL EXAMINATION: GENERAL: He is alert, awake and oriented, does appear to be anxious. VITAL SIGNS: Has a pulse of 107 and a blood pressure of 129/79, but most of the blood pressures are elevated. His temperature is 37.1. He was saturating 95% on 3 liters of oxygen via nasal cannula. Body mass index 35. HEENT: Head is normocephalic and atraumatic. Pupils are equal and reactive. There is no throat erythema. Airway is narrow. NECK: Does not show raised JVP, asymmetry, mass or lymph nodes. CHEST: Symmetrical expansion on inspection and palpation. On auscultation, breath sounds are decreased. Expirations are prolonged. I do not hear any added sounds. HEART: Regular. There is no murmur. ABDOMEN: Soft and nontender. EXTREMITIES: Lower extremities show 1+ edema bilaterally. There is no calf tenderness. SKIN: Dry and intact. NEUROLOGIC: Moves all extremities bilaterally equally and spontaneously with no focal deficits identified. LABORATORY DATA: The patient had a chest x-ray done yesterday. I had another chest x-ray repeated now as well. There are bilateral infiltrates present. Chest x-ray today looks worse than yesterday. This is likely due to worsening pulmonary vascular congestion. The patient's lab work was in [employer] and this is reviewed. COVID-19 screen is negative. ASSESSMENT AND PLAN: 1. Acute on chronic hypoxemic respiratory failure. He has chronic obstructive pulmonary disease exacerbation. Also, there is increasing fluid overload between the 2 chest x-rays done yesterday and today. He does have infiltrates as well. Thromboembolism is not ruled out. He needs a BiPAP long-term. I had previously recommended a sleep study. To my knowledge, he has not had a sleep study performed. He does need oxygen long-term. I understand he was having some difficulty with his insurance in this regard and we will try to assist him before discharge. For now, we will go ahead and place him on a BiPAP and AVAPS mode while asleep. 2. Chronic obstructive pulmonary disease exacerbation. Continue Solu-Medrol and nebulized bronchodilators. I cut back Solu-Medrol to 3 times a day. 3. Fluid overload/congestive heart failure, secondary [place] [address] CONSULTATION Name: AKI VIEIRA Room: [address] IN [facility].#: [id number] Admission: 08/31/20 Attend Phys: Kwan Cohn MD Discharge: Date of : 62 Report #: [id number] There is increase in pulmonary vascular congestion on the chest x-ray compared with yesterday. He is on Lasix, recommend continuing. We will give him some IV mag to avoid a drop. Repeat chest x-ray tomorrow. 4. Pulmonary infiltrates. He has had ceftriaxone, Zithromax and doxycycline on multiple occasions recently. Considering this, I went ahead and switched his ceftriaxone over to Levaquin. My suspicion of methicillin-resistant Staphylococcus aureus is not high for now. I would continue with doxycycline; however, if he improves, then I will perhaps have a low threshold of discontinuing doxycycline and continuing Levaquin alone. I did order a nasal swab for methicillin-resistant Staphylococcus aureus as well as sputum culture. 5. Edema, lower extremity/evaluation for thromboembolic phenomena. We still need to rule out thromboembolism. I ordered venous Dopplers. I ordered a D-dimer for tomorrow morning. We will need to be cautious in giving him IV dye because he had acute renal failure earlier. However, if his D-dimer is elevated and BUN and creatinine are normal, then I will be inclined to order a CTA chest cautiously tomorrow. 6. Long-term narcotic use/suspected obstructive as well as central sleep apnea, see discussion as above. Needs BiPAP or Trilogy at home correction. I will go ahead and obtain an arterial blood gas now to see where we stand, but regardless, I will place him on BiPAP while asleep. 7. Hypertension, management deferred to the primary service. Note that he is on Sudafed as well. 8. Deep venous thrombosis prophylaxis, Lovenox. 9. Gastrointestinal prophylaxis, on Protonix. 10. Clostridium difficile prophylaxis, probiotic. Thanks for this consultation. MD SOFYA Montilla/CHRISTY <ELECTRONICALLY SIGNED> By: Chucho Donahue MD 09/03/20 2334 1737 [id number] Donahue MD /nt
--- NOTE | 2020-09-04 03:45 | NUR ---
PT ALERT ORIENTED. UP AD MACIEL IN ROOM. CARDIAC MONIOR TRACING SR/ST. O2 AT 5 LITERS NC. R UPPER ARM PIC. HYDROCODONE GIVEN FOR PAIN IN BACK AND NECK.
[2020-09-04 03:58] VITALS: BP 150/90
[2020-09-04 05:18] LABS: CALCIUM 9.3 mg/dL (8.5-10.1); MAGNESIUM 2.3 mg/dL (1.8-2.4); POTASSIUM 4.4 mmol/L (3.5-5.1)
--- NOTE | 2020-09-04 07:26 | NUR ---
PAIN MEDICATION GIVEN TWICE FOR NECK AND BACK PAIN. PT SLEEPING OFF AND ON THROUGH OUT SHIFT.
--- NOTE | 2020-09-04 11:38 | NUR ---
PLAN OF CARE: PT REMAINS TELE STATUS AT THIS TIME. PT REMAINS ON IV ABT'S, AND 4L O2 CURRENTLY. PT USES 2L O2 AT HOME. PT WILL BENEFIT FROM HH AT D/C. CM CONTINUES TO ATTEMPT TO FIND HH IN-NETWORK WITH PT'S INSURANCE. CM WILL REMAIN AVAILABLE TO ASSIST AND FOLLOW NEEDED.
[2020-09-04 12:00] VITALS: BP 162/95
[2020-09-04 16:00] VITALS: BP 140/89
--- NOTE | 2020-09-04 16:04 | NUR ---
ASSUMED PT CARE AT 0730. PT IS A&OX4. ASSESSMENT COMPLETED AND PT DENIES ANY SOB AT THIS TIME. PT ENCOURAGED TO COUGH AND DEEP BREATHE. PT O2 NOW TITRATED DOWN TO 3L AND PT IS MAINTAINING O2 SATS IN THE MID 90'S. PT REPORTS NECK AND BACK PAIN THAT IS CHRONIC AT 6-7 AND REQUESTING ANTI-ANXIETY MEDICATION. MEDICATIONS ADMINISTERED AND PT REPORTS PAIN IS PARTIALLY RELIEVED WHICH IS NORMAL FOR HIM. EDEMA TO RLE 3+, EXTREMITY ELEVATED. SAFETY MEASURES IN PLACE. HOURLY ROUNDING COMPLETED.
[2020-09-04 20:00] VITALS: BP 162/83
[2020-09-05] VITALS: BP 131/88
[2020-09-05 04:00] VITALS: BP 137/80
--- NOTE | 2020-09-05 04:29 | NUR ---
ASSUMED PT CARE AT APPROX 1930. PT IS AWAKE AND ORIENTED X4. PT IS TRACING ST ON THE CIRCUIT COURT JUDGE. PT IS NOT IN DISTRESS, NO DESATURATIONS NOTED ON 3L OF O2/NC. PT HAS CHRONIC NECK PAIN BUT DENIES THE NEED FOR PAIN MEDICATIONS AT THIS TIME. NO ACUTE CHANGES THIS SHIFT. CALL LIGHT WITHIN REACH. HOURLY ROUNDING DONE FOR PT SAFETY.
[2020-09-05 04:31] LABS: ABSOLUTE LYMPHOCYTES 0.4 thou/uL (0.8-5.3); ABSOLUTE MONOCYTES 0.8 thou/uL (0.0-1.2); ABSOLUTE NEUTROPHILS 11.9 thou/uL (1.6-8.1); BASOPHILS 0.2 %; HEMOGLOBIN 11.2 gm/dL (14.0-18.0); LYMPHOCYTES 3.4 %; MCH 31.2 pg (26.0-34.0); MCHC 32.1 g/dL (28.0-37.0); MCV 97.5 fL (80.0-100.0); MONOCYTES 5.8 %; MPV 7.1 fl. (7.2-11.1); NUCLEATED RBCS 0 /100WBC; PLATELET COUNT* 327 thou/uL (150-400); POLYS 90.6 %; RBC 3.59 mil/uL (4.50-6.00); RDW-CV 18.9 % (10.5-14.5); WBC 13.2 thou/uL (4.0-11.0)
[2020-09-05 04:45] LABS: ALBUMIN 2.8 g/dL (3.4-5.0); CALCIUM 8.8 mg/dL (8.5-10.1); MAGNESIUM 2.2 mg/dL (1.8-2.4); POTASSIUM 4.6 mmol/L (3.5-5.1); TOTAL BILIRUBIN 0.3 mg/dL (<0.1-1.0); TOTAL PROTEIN 5.8 g/dL (6.4-8.2)
[2020-09-05 12:12] VITALS: BP 88/65
[2020-09-05] MEDS ORDERED: PREDNISONE 10 M10 MG PO (14:59)
[2020-09-05] MEDS ORDERED: LEVOFLOXACIN500 MG PO (14:59)
--- NOTE | 2020-09-05 15:41 | NUR ---
PLAN OF CARE: PT REMAINS TELE STATUS. PT MAY D/C TODAY PENDING PULM. PT WOULD BENEFIT FROM HH AT D/C. CM WILL ASSIST WITH ARRANGING HH FOR PT. CM WILL REMAIN AVAILABLE TO ASSIST AND FOLLOW NEEDED.
[2020-09-05 16:00] VITALS: BP 88/65
--- NOTE | 2020-09-05 16:08 | NUR ---
ASSUMED PT CARE AT 0730. PT IS ANXIOUS, ALERT AND ORIENTED X4. PT REMOVED HIS MEDINA HOSE AND STATES HE THREW THEM IN THE TRASH. ASSESSMENT COMPLETED AND O2 REMOVED, PT DENIES SOB AND O2 SATS REMAINED IN THE MID 90'S ON RA. PT STATES HE ONLY WEARS O2 AT HOME PRN AND ONLY FEELS SOB WITH EXERTION. MEDICATIONS ADMINISTERED ORDERED. PT CLEARLY SELECTS WHICH ONES HE WILL TAKE. EDUCATED PT ON THE IMPORTANCE OF COMPLIANCE WITH PHYSICIAN ORDERS. NEW ORDERS RECIEVED TO DISCHARGE PT TO HOME. DISCHARGE ORDERS REVIEWED WITH PT WHOM VERBALIZES UNDERSTANDING.
== END 2020-09-05 16:50 | disposition home health service (06) | DRG 177 ==
LOC: M.ERS 13:27 → M.2W 15:49 → M.TBA-ER 15:49 → M.2W 18:11
PROVIDERS: Emergency Medicine Emergency Medical Services; Internal Medicine; Internal Medicine Critical Care Medicine; ADMIT Internal Medicine; ATTEND Internal Medicine
PROC: 02HV33Z Insertion of Infusion Device into Superior Vena Cava, Percutaneous Approach (ICD-10-PCS; principal; 2020-09-01)
PROC: B548ZZA Ultrasonography of Superior Vena Cava, Guidance (ICD-10-PCS; principal; 2020-09-01)
DX: J15.6 Pneumonia due to other Gram-negative bacteria (principal); I50.33 Acute on chronic diastolic (congestive) heart failure; J96.21 Acute and chronic respiratory failure with hypoxia; J44.1 Chronic obstructive pulmonary disease with (acute) exacerbation; J44.0 Chronic obstructive pulmonary disease with (acute) lower respiratory infection; Z20.822 Contact with and (suspected) exposure to COVID-19; I11.0 Hypertensive heart disease with heart failure; G89.29 Other chronic pain; G47.31 Primary central sleep apnea; K21.9 Gastro-esophageal reflux disease without esophagitis; E66.9 Obesity, unspecified; R73.03 Prediabetes; E87.6 Hypokalemia; I27.81 Cor pulmonale (chronic); M17.12 Unilateral primary osteoarthritis, left knee; Z79.899 Other long term (current) drug therapy; Z87.891 Personal history of nicotine dependence; Z91.012 Allergy to eggs; Z79.891 Long term (current) use of opiate analgesic; Z71.6 Tobacco abuse counseling; Z91.19 Patient's noncompliance with other medical treatment and regimen; Z68.38 Body mass index [BMI] 38.0-38.9, adult

== ENCOUNTER 2020-09-25 01:45 | Inpatient (IN) | payer OTHER, MEDICAID ==
[~2020-09-25] VITALS: Ht 185.4 cm; Wt 136.2 kg
[2020-09-25] VITALS (7 sets, daily range): BP systolic 103–152; BP diastolic 55–89
[~2020-09-25 01:45] MED LIST changes: +LEVOFLOXACIN500 MG PO
[2020-09-25 02:17] LABS: ABSOLUTE BASOPHILS 0.2 thou/uL (0.0-0.2); ABSOLUTE EOSINOPHILS 0.7 thou/uL (0.0-0.7); ABSOLUTE LYMPHOCYTES 3.5 thou/uL (0.8-5.3); ABSOLUTE MONOCYTES 0.8 thou/uL (0.0-1.2); ABSOLUTE NEUTROPHILS 11.7 thou/uL (1.6-8.1); EOSINOPHILS 3.9 %; HEMATOCRIT 35.5 % (42.0-52.0); HEMOGLOBIN 11.9 gm/dL (14.0-18.0); LYMPHOCYTES 20.8 %; MCH 32.3 pg (26.0-34.0); MCHC 33.4 g/dL (28.0-37.0); MCV 96.7 fL (80.0-100.0); MONOCYTES 4.9 %; MPV 6.9 fl. (7.2-11.1); NUCLEATED RBCS 0 /100WBC; PLATELET COUNT* 429 thou/uL (150-400); POLYS 69.4 %; RBC 3.67 mil/uL (4.50-6.00); RDW-CV 20.3 % (10.5-14.5); WBC 16.8 thou/uL (4.0-11.0)
[2020-09-25 02:29] LABS: CALCIUM 8.7 mg/dL (8.5-10.1); CREATININE 1.8 mg/dL (0.6-1.3); POTASSIUM 4.9 mmol/L (3.5-5.1)
[2020-09-25 02:30] LABS: PROTIME 10.2 Seconds (9.20-11.50)
[2020-09-25 02:40] LABS: ALBUMIN 3.3 g/dL (3.4-5.0); TOTAL BILIRUBIN 0.7 mg/dL (<0.1-1.0); TOTAL PROTEIN 6.5 g/dL (6.4-8.2)
[2020-09-25 03:55] LABS: BE 4.9 mmol/L (-2 to +3); PCO2 48.2 mmHg (35.0-45.0); PO2 73.3 mmHg (75.0-100.0); pH 7.417 (7.340-7.450)
[2020-09-25] MEDS ORDERED: DESYREL150 MG PO (05:02)
[2020-09-25] MEDS ORDERED: NORCO 10-325 T1 EACH PO (05:02)
[2020-09-25 07:56] LABS: PLATELET ESTIMATE INCREASED
[2020-09-25 07:57] LABS: ANISOCYTOSIS 1+; POIKILOCYTOSIS 1+
[2020-09-25 09:08] LABS: CALCIUM 8.7 mg/dL (8.5-10.1); CREATININE 1.7 mg/dL (0.6-1.3); POTASSIUM 4.2 mmol/L (3.5-5.1)
[2020-09-25 09:11] LABS: MAGNESIUM 1.8 mg/dL (1.8-2.4); PHOSPHORUS* 4.3 mg/dL (2.5-4.9)
--- NOTE | 2020-09-25 09:40 | EKG ---
[place] [address] ELECTROCARDIOGRAM REPORT Name: ISHAAKI Ariane Room: [address]R.#: [id number] Admission: 09/25/20 Attend Phys: Tyra Clarke MD Discharge: Date of : 62 Date of Service: 09/25/20 0151 Report #: [id number] THIS REPORT FOR: //name// [facility] ED Test Date: 2020-09-25 Test Time: 01:51:46 Pat Name: AKI VIEIRA Department: Room: [facility] Gender: M Contact Lens Blocker: [place] : 1960 Requested By: Kristin Omalley Order Number: [id number] MD: Bari Esquivel Measurements Intervals [place] Rate: 129 P: 74 NV: 125 QRS: 73 QRSD: 95 T: 56 QT: 312 QTc: 458 Interpretive Statements Sinus tachycardia Multiform ventricular premature complexes Probable left atrial enlargement Compared to ECG 08/31/2020 13:30:09 No significant changes Electronically Signed On 09-25-2020 9:40:38 CDT by Bari Esquivel [email or web address] <ELECTRONICALLY SIGNED> By: Bari Esquivel MD, MERGED WITH [facility] 09/25/20 0940 0151 0151 Bari Esquivel MD, MERGED WITH [facility] /EPI
[2020-09-26] VITALS: BP 160/80
[2020-09-26 04:00] VITALS: BP 129/73
[2020-09-26 04:42] LABS: HEMATOCRIT 33.8 % (42.0-52.0); HEMOGLOBIN 11.1 gm/dL (14.0-18.0); MCH 31.9 pg (26.0-34.0); MCHC 32.8 g/dL (28.0-37.0); MCV 97.2 fL (80.0-100.0); MPV 7.1 fl. (7.2-11.1); RBC 3.48 mil/uL (4.50-6.00); RDW-CV 20.1 % (10.5-14.5); WBC 15.5 thou/uL (4.0-11.0)
[2020-09-26 04:46] LABS: CALCIUM 8.8 mg/dL (8.5-10.1); CREATININE 1.1 mg/dL (0.6-1.3)
[2020-09-26 08:23] VITALS: BP 151/92
[2020-09-26 12:00] VITALS: BP 140/110
[2020-09-26 16:00] VITALS: BP 126/67
[2020-09-26 20:00] VITALS: BP 122/70
[2020-09-27 00:38] VITALS: BP 141/86
[2020-09-27 04:54] VITALS: BP 136/95
[2020-09-27 05:48] LABS: HEMATOCRIT 32.1 % (42.0-52.0); HEMOGLOBIN 10.5 gm/dL (14.0-18.0); MCH 32.1 pg (26.0-34.0); MCHC 32.8 g/dL (28.0-37.0); MCV 97.6 fL (80.0-100.0); MPV 7.2 fl. (7.2-11.1); RBC 3.28 mil/uL (4.50-6.00); RDW-CV 20.1 % (10.5-14.5); WBC 15.2 thou/uL (4.0-11.0)
[2020-09-27 06:12] LABS: CALCIUM 9.3 mg/dL (8.5-10.1); POTASSIUM 5.3 mmol/L (3.5-5.1)
[2020-09-27 08:05] VITALS: BP 148/93; BP 185/71
[2020-09-27 12:00] VITALS: BP 122/97
[2020-09-27 16:00] VITALS: BP 165/76
[2020-09-27 20:00] VITALS: BP 147/80
[2020-09-28 00:24] VITALS: BP 163/90
[2020-09-28 05:12] LABS: CALCIUM 9.1 mg/dL (8.5-10.1); CREATININE 1.3 mg/dL (0.6-1.3); POTASSIUM 4.9 mmol/L (3.5-5.1)
[2020-09-28 05:30] LABS: HEMATOCRIT 32.7 % (42.0-52.0); HEMOGLOBIN 10.8 gm/dL (14.0-18.0); MCH 32.2 pg (26.0-34.0); MCHC 33.1 g/dL (28.0-37.0); MCV 97.4 fL (80.0-100.0); MPV 7.3 fl. (7.2-11.1); RBC 3.36 mil/uL (4.50-6.00); RDW-CV 19.9 % (10.5-14.5); WBC 12.4 thou/uL (4.0-11.0)
[2020-09-28] MEDS ORDERED: PREDNISONE 10 M10 MG PO (06:59)
[2020-09-28 12:29] VITALS: BP 132/112
[2020-09-28 12:51] VITALS: BP 162/109
== END 2020-09-28 14:45 | disposition home health service (06) | DRG 871 ==
LOC: M.ERS 01:45 → M.TBA-ER 03:25 → M.2W 04:14
PROVIDERS: Emergency Medicine; ADMIT Family Medicine; ATTEND Family Medicine
DX: A41.9 Sepsis, unspecified organism (principal); J96.01 Acute respiratory failure with hypoxia; I50.33 Acute on chronic diastolic (congestive) heart failure; N17.9 Acute kidney failure, unspecified; J44.1 Chronic obstructive pulmonary disease with (acute) exacerbation; E87.1 Hypo-osmolality and hyponatremia; E66.01 Morbid (severe) obesity due to excess calories; E11.9 Type 2 diabetes mellitus without complications; I27.81 Cor pulmonale (chronic); T38.0X5A Adverse effect of glucocorticoids and synthetic analogues, initial encounter; G89.29 Other chronic pain; I11.0 Hypertensive heart disease with heart failure; Z20.822 Contact with and (suspected) exposure to COVID-19; Z79.899 Other long term (current) drug therapy; Z91.012 Allergy to eggs; Z87.891 Personal history of nicotine dependence; Z68.39 Body mass index [BMI] 39.0-39.9, adult; Y92.89 Other specified places as the place of occurrence of the external cause

== ENCOUNTER 2020-10-15 01:05 | Inpatient (IN) | payer OTHER, MEDICAID ==
[2020-10-15] VITALS (7 sets, daily range): BP systolic 93–166; BP diastolic 55–97
[~2020-10-15] VITALS: Ht 185.4 cm; Wt 134.7 kg
[~2020-10-15 01:05] MED LIST changes: +DESYREL150 MG PO
[2020-10-15 01:53] LABS: BE 3.1 mmol/L (-2 to +3); PCO2 42.2 mmHg (35.0-45.0); PO2 87.4 mmHg (75.0-100.0); pH 7.435 (7.340-7.450)
[2020-10-15 01:57] LABS: CALCIUM 8.9 mg/dL (8.5-10.1); CREATININE 1.1 mg/dL (0.6-1.3); POTASSIUM 3.6 mmol/L (3.5-5.1)
[2020-10-15 02:01] LABS: ABSOLUTE BASOPHILS 0.1 thou/uL (0.0-0.2); ABSOLUTE EOSINOPHILS 0.1 thou/uL (0.0-0.7); ABSOLUTE LYMPHOCYTES 1.6 thou/uL (0.8-5.3); ABSOLUTE MONOCYTES 1.3 thou/uL (0.0-1.2); ABSOLUTE NEUTROPHILS 9.1 thou/uL (1.6-8.1); BASOPHILS 0.7 %; EOSINOPHILS 0.8 %; HEMATOCRIT 32.8 % (42.0-52.0); HEMOGLOBIN 11.1 gm/dL (14.0-18.0); LYMPHOCYTES 13.1 %; MCH 32.9 pg (26.0-34.0); MCHC 33.8 g/dL (28.0-37.0); MCV 97.1 fL (80.0-100.0); MONOCYTES 10.4 %; MPV 7.4 fl. (7.2-11.1); NUCLEATED RBCS 0 /100WBC; PLATELET COUNT* 309 thou/uL (150-400); RBC 3.38 mil/uL (4.50-6.00); RDW-CV 19.2 % (10.5-14.5); WBC 12.1 thou/uL (4.0-11.0)
[2020-10-15 02:13] LABS: ALBUMIN 2.9 g/dL (3.4-5.0); MAGNESIUM 1.5 mg/dL (1.8-2.4); TOTAL BILIRUBIN 0.2 mg/dL (<0.1-1.0); TOTAL PROTEIN 6.6 g/dL (6.4-8.2)
[2020-10-15 10:02] LABS: URINE BILIRUBIN NEGATIVE (Negative); URINE BLOOD NEGATIVE (Negative); URINE CLARITY CLEAR; URINE COLOR YELLOW; URINE GLUCOSE-RANDOM 2+ (Negative); URINE KETONES TRACE (Negative); URINE LEUKOCYTES-REFLEX NEGATIVE (Negative); URINE NITRITE-REFLEX NEGATIVE (Negative); URINE PROTEIN NEGATIVE (Negative); URINE UROBILINOGEN 0.2 E.U./dl (0.2-1.0)
--- NOTE | 2020-10-15 14:15 | EKG ---
[place] [address] ELECTROCARDIOGRAM REPORT Name: AKI VIEIRA Room: [address] ADM IN [facility]#: [id number] Admission: 10/15/20 Attend Phys: Abdifatah Alarcon Discharge: Date of : 62 Date of Service: 10/15/20 0112 Report #: [id number] THIS REPORT FOR: //name// [facility] ED Test Date: 2020-10-15 Test Time: 01:12:16 Pat Name: AKI VIEIRA Department: Room: [facility] Gender: M Associate Teacher: CLAUDIA : 1960 Requested By: Maribel Padilla Order Number: [id number] MD: Kalen Reyes Measurements Intervals [place] Rate: 116 P: 65 MO: 140 QRS: 68 QRSD: 111 T: 54 QT: 334 QTc: 465 Interpretive Statements Sinus tachycardia Ventricular premature complex Probable left atrial enlargement Baseline wander in lead(s) II,III,aVF,V3,V4,V5,V6 Compared to ECG 09/25/2020 01:51:46 No significant changes Electronically Signed On 10-15-2020 14:15:02 CDT by Kalen Reyes [email or web address] <ELECTRONICALLY SIGNED> By: Kalen Reyes MD, [facility] 10/15/20 1415 1 1 Kalen Reyes MD, [facility] /EPI
[2020-10-16] VITALS (7 sets, daily range): BP systolic 110–142; BP diastolic 53–83
[2020-10-16 04:29] LABS: HEMATOCRIT 31.3 % (42.0-52.0); HEMOGLOBIN 10.4 gm/dL (14.0-18.0); MCH 32.8 pg (26.0-34.0); MCHC 33.2 g/dL (28.0-37.0); MCV 98.7 fL (80.0-100.0); MPV 7.4 fl. (7.2-11.1); RBC 3.17 mil/uL (4.50-6.00); RDW-CV 18.7 % (10.5-14.5); WBC 14.7 thou/uL (4.0-11.0)
[2020-10-16 05:15] LABS: CALCIUM 8.9 mg/dL (8.5-10.1); CREATININE 1.1 mg/dL (0.6-1.3); POTASSIUM 4.3 mmol/L (3.5-5.1)
[2020-10-17 04:00] VITALS: BP 161/92
[2020-10-17 05:12] LABS: HEMATOCRIT 33.2 % (42.0-52.0); HEMOGLOBIN 10.9 gm/dL (14.0-18.0); MCH 32.8 pg (26.0-34.0); MCHC 32.9 g/dL (28.0-37.0); MCV 99.7 fL (80.0-100.0); MPV 7.6 fl. (7.2-11.1); RBC 3.33 mil/uL (4.50-6.00); RDW-CV 19.3 % (10.5-14.5); WBC 10.5 thou/uL (4.0-11.0)
[2020-10-17 05:14] LABS: CALCIUM 8.9 mg/dL (8.5-10.1); CREATININE 1.4 mg/dL (0.6-1.3); POTASSIUM 4.9 mmol/L (3.5-5.1)
[2020-10-17 08:00] VITALS: BP 148/79
[2020-10-17 12:40] VITALS: BP 125/45
[2020-10-17 17:02] VITALS: BP 98/74
[2020-10-17 20:00] VITALS: BP 119/64
[2020-10-18 00:35] VITALS: BP 126/60
[2020-10-18 04:51] VITALS: BP 161/90
[2020-10-18 05:30] LABS: HEMOGLOBIN 10.9 gm/dL (14.0-18.0); MCH 32.4 pg (26.0-34.0); MCHC 33.1 g/dL (28.0-37.0); MCV 97.8 fL (80.0-100.0); MPV 7.5 fl. (7.2-11.1); RBC 3.38 mil/uL (4.50-6.00); RDW-CV 18.3 % (10.5-14.5); WBC 15.6 thou/uL (4.0-11.0)
[2020-10-18 06:01] LABS: ALBUMIN 3.2 g/dL (3.4-5.0); CREATININE 1.4 mg/dL (0.6-1.3); POTASSIUM 4.4 mmol/L (3.5-5.1); TOTAL BILIRUBIN 0.2 mg/dL (<0.1-1.0); TOTAL PROTEIN 6.8 g/dL (6.4-8.2)
[2020-10-18 08:00] VITALS: BP 161/72
[2020-10-18 18:50] VITALS: BP 140/62
[2020-10-18 20:00] VITALS: BP 185/101
[2020-10-19] VITALS: BP 142/89
[2020-10-19 05:58] LABS: HEMATOCRIT 32.2 % (42.0-52.0); HEMOGLOBIN 10.7 gm/dL (14.0-18.0); MCH 32.3 pg (26.0-34.0); MCHC 33.1 g/dL (28.0-37.0); MCV 97.7 fL (80.0-100.0); MPV 7.3 fl. (7.2-11.1); RBC 3.3 mil/uL (4.50-6.00); RDW-CV 19.3 % (10.5-14.5); WBC 13.9 thou/uL (4.0-11.0)
[2020-10-19 06:15] LABS: CALCIUM 9.3 mg/dL (8.5-10.1); CREATININE 1.3 mg/dL (0.6-1.3); MAGNESIUM 2.1 mg/dL (1.8-2.4); POTASSIUM 4.6 mmol/L (3.5-5.1)
[2020-10-19 08:03] VITALS: BP 143/82
[2020-10-19] MEDS ORDERED: PREDNISONE 10 M10 M1 PO (09:04)
[2020-10-19] MEDS ORDERED: PULMICORT0.5 MG/2 M INH (09:04)
[2020-10-19] MEDS ORDERED: VIBRAMYCIN 100100 MG PO (09:04)
[2020-10-19] MEDS ORDERED: BROVANA15 MCG/2 M INH (09:04)
[2020-10-19] MEDS ORDERED: GLIPIZIDE 10 MG10 MG PO (09:06)
[2020-10-19] MEDS ORDERED: OTHER MISCELL (09:08)
[2020-10-19] MEDS ORDERED: TEST STRIPS1 EACH SUBQ (09:08)
[2020-10-19 13:28] VITALS: BP 143/82
[2020-10-19 13:46] VITALS: BP 125/99
== END 2020-10-19 13:45 | disposition home or self-care (01) | DRG 291 ==
LOC: M.ERS 01:05 → M.TBA-ER 02:46 → M.2W 02:46
PROVIDERS: Internal Medicine; Personal Emergency Response Attendant; ADMIT Internal Medicine; ATTEND Internal Medicine
PROC: 02HV33Z Insertion of Infusion Device into Superior Vena Cava, Percutaneous Approach (ICD-10-PCS; principal; 2020-10-16)
PROC: B548ZZA Ultrasonography of Superior Vena Cava, Guidance (ICD-10-PCS; principal; 2020-10-16)
DX: I11.0 Hypertensive heart disease with heart failure (principal); N17.0 Acute kidney failure with tubular necrosis; R65.11 Systemic inflammatory response syndrome (SIRS) of non-infectious origin with acute organ dysfunction; J44.1 Chronic obstructive pulmonary disease with (acute) exacerbation; I50.33 Acute on chronic diastolic (congestive) heart failure; G89.29 Other chronic pain; E83.42 Hypomagnesemia; Z20.822 Contact with and (suspected) exposure to COVID-19; Z79.899 Other long term (current) drug therapy; Z91.012 Allergy to eggs

== ENCOUNTER 2020-10-25 23:47 | Observation (INO) | payer OTHER, MEDICAID ==
[~2020-10-25] VITALS: Ht 185.4 cm; Wt 129.3 kg
[~2020-10-25 23:47] MED LIST changes: +GLIPIZIDE 10 MG10 MG PO; +OTHER MISCELL; +TEST STRIPS1 EACH SUBQ; +VIBRAMYCIN 100100 MG PO
[2020-10-25 23:48] VITALS: BP 125/88
[2020-10-26 00:55] LABS: HEMATOCRIT 33.4 % (42.0-52.0); MCH 31.4 pg (26.0-34.0); MCHC 32.9 g/dL (28.0-37.0); MCV 95.5 fL (80.0-100.0); NUCLEATED RBCS 0 /100WBC; PLATELET COUNT* 442 thou/uL (150-400); RDW-CV 19.5 % (10.5-14.5); WBC 21.9 thou/uL (4.0-11.0)
[2020-10-26 00:57] LABS: CALCIUM 8.3 mg/dL (8.5-10.1); CREATININE 1.2 mg/dL (0.6-1.3); POTASSIUM 4.2 mmol/L (3.5-5.1)
[2020-10-26 01:02] LABS: ALBUMIN 3.1 g/dL (3.4-5.0); MAGNESIUM 1.9 mg/dL (1.8-2.4); TOTAL BILIRUBIN 0.3 mg/dL (<0.1-1.0); TOTAL PROTEIN 6.5 g/dL (6.4-8.2)
[2020-10-26 01:06] LABS: URINE BILIRUBIN NEGATIVE (Negative); URINE BLOOD NEGATIVE (Negative); URINE CLARITY CLEAR; URINE COLOR YELLOW; URINE GLUCOSE-RANDOM NEGATIVE (Negative); URINE KETONES NEGATIVE (Negative); URINE LEUKOCYTES-REFLEX NEGATIVE (Negative); URINE NITRITE-REFLEX NEGATIVE (Negative); URINE PROTEIN NEGATIVE (Negative); URINE UROBILINOGEN 0.2 E.U./dl (0.2-1.0)
[2020-10-26 02:31] LABS: ABSOLUTE LYMPHOCYTES 0.7 thou/uL (0.8-5.3); ABSOLUTE MONOCYTES 0.7 thou/uL (0.0-1.2); ABSOLUTE NEUTROPHILS 20.6 thou/uL (1.6-8.1); METAMYELOCYTES 1 %
[2020-10-26 02:32] LABS: ANISOCYTOSIS 1+; PLATELET ESTIMATE ADEQUATE; POLYCHROMASIA 1+
[2020-10-26 04:54] LABS: BE 3.3 mmol/L (-2 to +3); PCO2 36.3 mmHg (35.0-45.0); PO2 96.1 mmHg (75.0-100.0); pH 7.483 (7.340-7.450)
[2020-10-26 04:56] LABS: NT-PRO BRAIN NAT PEPTIDE 682 pg/mL (<300); TROPONIN-I LEVEL <0.06 ng/mL (<0.06)
[2020-10-26 05:40] VITALS: BP 171/74
[2020-10-26 06:00] VITALS: BP 179/96
--- NOTE | 2020-10-26 07:03 | NUR ---
REPORT RECIEVED FROM ER. PT ORIENTED TO ROOM, CALL LIGHT SHOWN, FALL AGREEMENT GONE OVER, PT STATED UNDERSTANDING. IV PATENT. ADMISSION DOCUMENTED. PT REFUSED BED ALARM, BUT FALL RISK BRACLET AND YELLOW SOCKS IN PLACE. WILL CONTINUE WITH PLAN OF CARE.
[2020-10-26 08:10] VITALS: BP 163/94
--- NOTE | 2020-10-26 11:49 | EKG ---
[place] [address] ELECTROCARDIOGRAM REPORT Name: AKI VIEIRA Room: [address] ADM IN .R.#: [id number] Admission: 10/26/20 Attend Phys: Toya Conti, Discharge: Date of : 62 Date of Service: 10/25/20 2349 Report #: [id number] THIS REPORT FOR: //name// [facility] ED Test Date: 2020-10-25 Test Time: 23:49:34 Pat Name: AKI VIEIRA Department: Room: [address] Gender: M Assistant Gm Of Content & Delivery: CARINE : 1960 Requested By: Maribel Padilla Order Number: [id number] MD: Tone Ford Measurements Intervals [place] Rate: 117 P: 83 HI: 126 QRS: 67 QRSD: 96 T: 51 QT: 339 QTc: 473 Interpretive Statements Sinus tachycardia Compared to ECG 10/15/2020 01:12:16 Ventricular premature complex(es) no longer present Electronically Signed On 10-26-2020 11:49:38 CDT by Tone Ford [email or web address] <ELECTRONICALLY SIGNED> By: Tone Ford MD, FACC 10/26/20 1149 2349 2349 Tone Ford MD, [facility] /EPI
[2020-10-26 12:00] VITALS: BP 155/83
[2020-10-26 16:00] VITALS: BP 138/90
--- NOTE | 2020-10-26 18:50 | NUR ---
RECEIVED REPORT. ASSUMED CARE OF PT AROUND 0730. AM ASSESSMENT AND VITALS COMPLETED CHARTED. MEDS PER EMAR. PT RESTED A LOT TODAY. VERY FATIGUED. VOIDING WELL. PT DOING WELL LIMITING HIS FLUID INTAKE. PT REFUSING TO HAVE BED ALARM ON BECAUSE HE LIKES TO SIT UP ON THE SIDE OF THE BED. EDUCATED ON NEED FOR FALL PRECAUTIONS. PT AGREES TO EVERYTHING BUT BED ALARM. PLAN OF CARE IN PROGRESS. CALL LIGHT WITHIN REACH. HOURLY ROUNDING PERFORMED.
[2020-10-27] VITALS: BP 120/55
[2020-10-27 04:00] VITALS: BP 126/67
[2020-10-27 07:40] VITALS: BP 141/96
[2020-10-27 11:15] VITALS: BP 174/90
--- NOTE | 2020-10-27 11:20 | NUR ---
ASSUMED CARE OF PT AT 0730. PT SITTING AT EDGE OF BED WAITING FOR BREAKFAST. PT A&0X4, COMPLAINS OF PAIN TO NECK-TREATED WITH PRN NORCO WITH PARTIAL RELIEF. TRACING SR/ST ON THE PHYSICIAN PRACTICE ADMINISTRATOR. ON 2L NC SAT MID 90'S. WHEEZES NOTED. PT UP WITH SBA TO BATHROOM. VOIDS PER URINAL. KNEE HIGH TUBIGRIPS IN PLACE TO BILATERAL LE'S. PT GOAL FOR TODAY IS INCREASE ACTIVITY, UP TO CHAIR FOR MEALS AND PAIN MGMT. AM ASSESSMENT CHARTED. MEDICATIONS PER JUL. PT REPOSITIONS SELF WITH REMINDERS. HOURLY ROUNDING OBSERVED. BED IN LOW POSITION. CALL LIGHT WITHIN REACH. WILL CONTINUE PLAN OF CARE.
[2020-10-27 13:17] LABS: ABSOLUTE BASOPHILS 0.1 thou/uL (0.0-0.2); ABSOLUTE LYMPHOCYTES 1.2 thou/uL (0.8-5.3); ABSOLUTE MONOCYTES 0.7 thou/uL (0.0-1.2); ABSOLUTE NEUTROPHILS 22.9 thou/uL (1.6-8.1); BASOPHILS 0.3 %; HEMATOCRIT 33.5 % (42.0-52.0); HEMOGLOBIN 11.1 gm/dL (14.0-18.0); LYMPHOCYTES 4.8 %; MCH 32.1 pg (26.0-34.0); MCHC 33.3 g/dL (28.0-37.0); MCV 96.5 fL (80.0-100.0); MONOCYTES 2.8 %; MPV 7.2 fl. (7.2-11.1); NUCLEATED RBCS 0 /100WBC; PLATELET COUNT* 400 thou/uL (150-400); POLYS 92.1 %; RBC 3.47 mil/uL (4.50-6.00); WBC 24.9 thou/uL (4.0-11.0)
[2020-10-27 13:42] LABS: ALBUMIN 3.1 g/dL (3.4-5.0); CALCIUM 8.6 mg/dL (8.5-10.1); CREATININE 1.1 mg/dL (0.6-1.3); POTASSIUM 4.4 mmol/L (3.5-5.1); TOTAL BILIRUBIN 0.3 mg/dL (<0.1-1.0); TOTAL PROTEIN 6.2 g/dL (6.4-8.2)
--- NOTE | 2020-10-27 13:44 | NUR ---
Pt is A&O. Resides at home alone. Known to this CM from previous hospital stays. Pt has a walker and cane at home that he can use for mobility. Pt has a triology and home o2 through [employer]. Pt is current with [facility]. No hx of SNF. Plan dc either later today or tomorrow with a plan for outpt f/u with PCP. Plan HH at dc. [facility] f:[phone]
[2020-10-27 16:25] VITALS: BP 110/89
[2020-10-27 19:30] VITALS: BP 131/87
--- NOTE | 2020-10-27 23:02 | NUR ---
PT IS REFUSING BED ALARM. PT IS IN HIS ROOM YELLING AT STAFF BECAUSE WE TURNED HIS BED ALARM OFF. PT WAS EDUCATED ON RISKS OF FALL AND STILL REFUSES BED ALARM
--- NOTE | 2020-10-27 23:21 | NUR ---
PT IS ALSO REFUSING CARDIAC REHAB MANAGER. PT IS EDUCATED THAT WE WILL NOT BE ABLE TO SEE HIS HEART RYTHM IF IT CHANGES OR GOES INTO A LETHAL RYTHM. HE CONTINUE TO REFUSE TELEMETRY.
--- NOTE | 2020-10-27 23:55 | NUR ---
ASSUMED CARE OF PT AT 1900. PT IS ALERT AND ORIENTED. VSS. PERRLA. NO COMPLAINTS OF PAIN. PT IS ON 2 LITERS O2. +3 EDEMA IN LOWER EXTREMITIES. PT REFUSING TELEMETRY AND FALL PRECAUTIONS. PT WAS IN SINUS RYTHM PRIOR TO TAKING OFF TELEMETRY. PT IS UP IN HIS RROM AT THIS TIME. WILL CONTINUE TO MONITOR PT.
[2020-10-28 00:47] VITALS: BP 135/72
[2020-10-28 04:39] VITALS: BP 141/62
[2020-10-28 08:44] VITALS: BP 148/102
[2020-10-28 09:27] VITALS: BP 148/102
[2020-10-28 10:57] VITALS: BP 148/102
[2020-10-28 12:00] VITALS: BP 143/82
[2020-10-28] MEDS ORDERED: NORCO7.5 PO (12:14)
[2020-10-28] MEDS ORDERED: PREDNISONE 10 M10 MG PO (12:14)
[2020-10-28] MEDS ORDERED: AMOX TR-K CLV1 EAC4 PO (12:14)
--- NOTE | 2020-10-28 14:40 | NUR ---
Pt discharged to home today, faxed referral and orders to [facility]. CM had a long discussion with sister, sister believes that Pt needs SNF, but understands that Pt has to be in agreement. Sister ok with home with HH if Pt wants that. DC today
== END 2020-10-28 13:52 | disposition home health service (06) ==
LOC: M.ERS 23:47 → M.TBA-ER 10-26 04:16 → M.2W 10-26 04:16
PROVIDERS: Internal Medicine; Personal Emergency Response Attendant; ADMIT Internal Medicine; ATTEND Internal Medicine
DX: J44.1 Chronic obstructive pulmonary disease with (acute) exacerbation (principal); Z20.822 Contact with and (suspected) exposure to COVID-19; E87.2 Acidosis; I10 Essential (primary) hypertension; I11.0 Hypertensive heart disease with heart failure; E11.9 Type 2 diabetes mellitus without complications; J96.10 Chronic respiratory failure, unspecified whether with hypoxia or hypercapnia; I50.32 Chronic diastolic (congestive) heart failure; E66.01 Morbid (severe) obesity due to excess calories; E24.2 Drug-induced Cushing's syndrome; M25.562 Pain in left knee; M25.572 Pain in left ankle and joints of left foot; G89.29 Other chronic pain; Z98.890 Other specified postprocedural states; Z87.891 Personal history of nicotine dependence

== ENCOUNTER 2020-11-05 15:36 | Inpatient (IN) | payer OTHER, MEDICAID ==
[~2020-11-05] VITALS: Ht 182.9 cm; Wt 131.1 kg
[~2020-11-05 15:36] MED LIST changes: +AMOX TR-K CLV1 EAC4 PO; +NORCO7.5 PO
[2020-11-05 15:40] VITALS: BP 144/88
[2020-11-05 16:05] LABS: ABSOLUTE BASOPHILS 0.1 thou/uL (0.0-0.2); ABSOLUTE EOSINOPHILS 0.2 thou/uL (0.0-0.7); ABSOLUTE LYMPHOCYTES 1.5 thou/uL (0.8-5.3); ABSOLUTE MONOCYTES 1.3 thou/uL (0.0-1.2); ABSOLUTE NEUTROPHILS 11.1 thou/uL (1.6-8.1); BASOPHILS 0.8 %; EOSINOPHILS 1.1 %; HEMATOCRIT 30.7 % (42.0-52.0); HEMOGLOBIN 10.3 gm/dL (14.0-18.0); LYMPHOCYTES 10.5 %; MCH 32.4 pg (26.0-34.0); MCHC 33.5 g/dL (28.0-37.0); MCV 96.8 fL (80.0-100.0); MONOCYTES 9.3 %; MPV 7.3 fl. (7.2-11.1); NUCLEATED RBCS 0 /100WBC; PLATELET COUNT* 264 thou/uL (150-400); POLYS 78.3 %; RBC 3.17 mil/uL (4.50-6.00); RDW-CV 19.1 % (10.5-14.5); WBC 14.1 thou/uL (4.0-11.0)
[2020-11-05 16:14] LABS: CALCIUM 8.6 mg/dL (8.5-10.1); CREATININE 2.4 mg/dL (0.6-1.3); POTASSIUM 3.1 mmol/L (3.5-5.1)
[2020-11-05 16:25] LABS: TOTAL BILIRUBIN 0.3 mg/dL (<0.1-1.0); TOTAL PROTEIN 6.5 g/dL (6.4-8.2)
[2020-11-05 16:25] LABS: BE -0.9 mmol/L (-2 to +3); PCO2 38.4 mmHg (35.0-45.0); PO2 62.8 mmHg (75.0-100.0); pH 7.406 (7.340-7.450)
[2020-11-05 18:44] VITALS: BP 110/47
--- NOTE | 2020-11-05 18:55 | NUR ---
RECEIVED REPORT FROM BRADLEY IN ER. PT ARRIVED TO TELE FLOOR AROUND 1854. WOOD BORER PLACED. NEW PT ADMISSION BAND PLACED. PT ORIENTED TO ROOM, BED AND CALL LIGHT. REPORT GIVEN TO JOHN LEA. ROCK RN TO COMPLETE ADMISSION.
[2020-11-05 20:00] VITALS: BP 97/55
[2020-11-06] VITALS: BP 139/48
[2020-11-06 04:20] LABS: HEMATOCRIT 28.2 % (42.0-52.0); HEMOGLOBIN 9.5 gm/dL (14.0-18.0); MCH 32.4 pg (26.0-34.0); MCHC 33.7 g/dL (28.0-37.0); MCV 96.1 fL (80.0-100.0); MPV 7.2 fl. (7.2-11.1); NUCLEATED RBCS 0 /100WBC; PLATELET COUNT* 256 thou/uL (150-400); RBC 2.93 mil/uL (4.50-6.00); RDW-CV 19.1 % (10.5-14.5); WBC 9.2 thou/uL (4.0-11.0)
[2020-11-06 04:22] VITALS: BP 123/73
[2020-11-06 04:31] LABS: ALBUMIN 2.7 g/dL (3.4-5.0); CREATININE 1.7 mg/dL (0.6-1.3); TOTAL BILIRUBIN 0.2 mg/dL (<0.1-1.0); TOTAL PROTEIN 6.2 g/dL (6.4-8.2)
[2020-11-06 04:43] LABS: POTASSIUM 4.4 mmol/L (3.5-5.1)
[2020-11-06 06:12] LABS: ABSOLUTE LYMPHOCYTES 0.5 thou/uL (0.8-5.3); ABSOLUTE MONOCYTES 0.3 thou/uL (0.0-1.2); ABSOLUTE NEUTROPHILS 8.5 thou/uL (1.6-8.1); ANISOCYTOSIS 1+; CLUMPED PLTS FEW; PLATELET ESTIMATE ADEQUATE
[2020-11-06 06:13] LABS: POIKILOCYTOSIS Occasional; TOXIC GRANULATION 1+
--- NOTE | 2020-11-06 06:41 | NUR ---
PATIENT ARRIVED ON FLOOR JUST PRIOR TO SHIFT CHANGE. PATIENT HISTORY AND ASSESSMENT WAS COMPLETED CHARTED. PATIENT HAS BEEN SINUS SR-TACH ON THE MONITOR. PATIENT GETS VERY SOA WITH ACTIVITY. BREATHING TREATMENTS GIVEN SCHEDULED AND PRN. PATIENT REMAINS ON OXYGEN AT 2L PER NASAL CANNULA. WILL CONTINUE TO MONITOR.
[2020-11-06 08:00] VITALS: BP 160/72
--- NOTE | 2020-11-06 11:02 | EKG ---
[place] [address] ELECTROCARDIOGRAM REPORT Name: AKI VIEIRA Room: [address] ADM IN .R.#: [id number] Admission: 11/05/20 Attend Phys: Abdifatah Alarcon Discharge: Date of : 62 Date of Service: 11/05/20 1556 Report #: [id number] THIS REPORT FOR: //name// [facility] ED Test Date: 2020-11-05 Test Time: 15:56:12 Pat Name: AKI VIEIRA Department: Room: [facility] Gender: M Experience Design Director: RUDI : 1960 Requested By: Ariel Guadarrama Order Number: [id number] MD: Bari Esquivel Measurements Intervals [place] Rate: 98 P: 63 CT: 146 QRS: 63 QRSD: 100 T: 85 QT: 354 QTc: 453 Interpretive Statements Sinus rhythm pvc Probable left atrial enlargement Compared to ECG 10/25/2020 23:49:34 pvc noted Sinus tachycardia no longer present Electronically Signed On 11-06-2020 11:02:28 CDT by Bari Esquivel [email or web address] <ELECTRONICALLY SIGNED> By: Bari Esquivel MD, FAC 11/06/20 1102 1556 1556 Bari Esquivel MD, [facility] /EPI
[2020-11-06 12:00] VITALS: BP 140/73
--- NOTE | 2020-11-06 12:13 | NUR ---
PT INDICATED HE LIVES IN HOME AND HE AND HIS COUSIN ARE ROOMMATES. PT STATED HER WAS ADMITTED TO [facility] FROM [facility], PT DOES NOT PLAN TO RTRN TO SNF HE STATED "THEY OVERDOSED ME." PT HAS HOME 02 2 1/2L PROVIDED BY [facility]. PT IS INDEPENDENT WITH ADLS.
[2020-11-06 17:12] VITALS: BP 1369/73
[2020-11-06 19:45] VITALS: BP 1218/65; BP 128/65
[2020-11-07] VITALS: BP 111/72
[2020-11-07 04:00] VITALS: BP 131/68
--- NOTE | 2020-11-07 04:41 | NUR ---
PT A&O, VSS ON 3L. LUNGS WHEEZY, CONGESTIVE COUGH. EDEMA BLE. MEDS GIVEN ORDERED. NORCO GIVEN X 2 FOR BACK PAIN. UP TO BSC WITH SBA. HAD BM X2. SNACKS GIVEN PER PT REQUEST. CALL LIGHT WITHIN REACH. WILL CONTINUE TO MONITOR.
[2020-11-07 08:00] VITALS: BP 154/75
[2020-11-07 12:00] VITALS: BP 143/72
[2020-11-07 13:16] LABS: HEMATOCRIT 31.4 % (42.0-52.0); HEMOGLOBIN 10.1 gm/dL (14.0-18.0); MCH 32.1 pg (26.0-34.0); MCHC 32.3 g/dL (28.0-37.0); MCV 99.5 fL (80.0-100.0); MPV 7.9 fl. (7.2-11.1); NUCLEATED RBCS 0 /100WBC; PLATELET COUNT* 302 thou/uL (150-400); RBC 3.15 mil/uL (4.50-6.00); RDW-CV 19.3 % (10.5-14.5)
[2020-11-07 13:35] LABS: ABSOLUTE LYMPHOCYTES 0.7 thou/uL (0.8-5.3); ABSOLUTE MONOCYTES 0.2 thou/uL (0.0-1.2); ABSOLUTE NEUTROPHILS 21.1 thou/uL (1.6-8.1); PLATELET ESTIMATE ADEQUATE
[2020-11-07 13:37] LABS: ALBUMIN 2.8 g/dL (3.4-5.0); CREATININE 1.3 mg/dL (0.6-1.3); POTASSIUM 4.6 mmol/L (3.5-5.1); TOTAL BILIRUBIN 0.1 mg/dL (<0.1-1.0); TOTAL PROTEIN 6.2 g/dL (6.4-8.2)
--- NOTE | 2020-11-07 15:10 | NUR ---
No weekend dc planned. Tele psych consulted. Neuro consulted. Pt's goal is to return home, not to SNF.
[2020-11-07 16:00] VITALS: BP 154/86
--- NOTE | 2020-11-07 18:30 | NUR ---
RECEIVED REPORT. ASSUMED CARE OF PT AROUND 0730. AM ASSESSMENT AND VITALS COMPLETED CHARTED. MEDS PER EMAR. HORSE SHOER IN PLACE. BLOOD GLUOSE LEVELS VERY HIGH THIS SHIFT. AWARE. PO PAIN MEDICATION GIVEN PER EMAR. PT VISITED ON PHONE WITH FAMILY THIS SHIFT. CALL LIGHT WITHIN REACH. HOURLY ROUNDING PERFORMED.
[2020-11-08] VITALS: BP 177/106
[2020-11-08 04:00] VITALS: BP 148/52
[2020-11-08 07:11] LABS: ABSOLUTE LYMPHOCYTES 0.5 thou/uL (0.8-5.3); ABSOLUTE MONOCYTES 0.6 thou/uL (0.0-1.2); ABSOLUTE NEUTROPHILS 18.2 thou/uL (1.6-8.1); BASOPHILS 0.1 %; HEMATOCRIT 28.3 % (42.0-52.0); HEMOGLOBIN 9.3 gm/dL (14.0-18.0); LYMPHOCYTES 2.8 %; MCH 32.2 pg (26.0-34.0); MCHC 32.9 g/dL (28.0-37.0); MONOCYTES 3.2 %; MPV 7.2 fl. (7.2-11.1); NUCLEATED RBCS 0 /100WBC; PLATELET COUNT* 289 thou/uL (150-400); POLYS 93.9 %; RBC 2.89 mil/uL (4.50-6.00); RDW-CV 19.1 % (10.5-14.5); WBC 19.4 thou/uL (4.0-11.0)
[2020-11-08 07:29] LABS: CALCIUM 9.4 mg/dL (8.5-10.1); CREATININE 1.3 mg/dL (0.6-1.3); TOTAL BILIRUBIN 0.1 mg/dL (<0.1-1.0); TOTAL PROTEIN 6.3 g/dL (6.4-8.2)
[2020-11-08 08:00] VITALS: BP 172/78
[2020-11-08 12:00] VITALS: BP 177/86
[2020-11-08 16:00] VITALS: BP 1558/87; BP 158/87
--- NOTE | 2020-11-08 19:59 | NUR ---
PT IS ALERT AMD ORIENTED AND IS COUGHING UP LOTS OF SPUTUMTHAT IS GREENISH IN COLOR. PT REMAINS ON 4LNC OF OXYGEN. PT DID GET UP TO SHAVE AND WANTS TO BATH THIS PM, POSSIBLE DISCHARGE HOME TOMORROW. VSS AFEBRILE. WILL CONTINUE TO MONITOR PLAN OF CARE.
[2020-11-08 20:00] VITALS: BP 116/96
[2020-11-09] VITALS: BP 140/68
[2020-11-09 03:06] LABS: GLYCOHEMOGLOBIN (HGB A1C) 7.6 % (4.8-5.6)
[2020-11-09 04:14] VITALS: BP 128/74
[2020-11-09 07:40] VITALS: BP 132/73
--- NOTE | 2020-11-09 09:21 | NUR ---
ASSUMED CARE OF PT THIS AM AROUND 0715- HYPOID GEAR TESTER IN PLACE ORDERED, TRACING SR- UPON ASSESSMENT PT NOTED TO BE RESTING IN BED SLEEPING- PT A&O X4- CONT OF B/B- UP AD-MACIEL TO BED SIDE COMMODE- VSS, O2 SAT 99% ON 3L VIA NC- WHEEZES NOTED, DYSPNEA NOTED WITH MINIMAL [id number] COUGH NOTED- ABD SOFT/OBESE/NON-TENDER, BS X4 QUADS- LAST BM REPORTED 11/08/20- IV NOTED TO LEFT FA INTACT AND SL- IV ABT GIVEN THIS AM PRESCRIBED- GOOD PO NOTED THIS AM WITH BREAKFAST, BS MONITORED WITH INSULIN PRESCRIBED-RIGHT ELBOW DRESSING NOTED C/D/I R/T REPORTED SKIN TEAR- SCHEDULED HYDROCODONE GIVEN R/T CHRONIC BACK/NECK/KNEE PAIN- CALL LIGHT AND PERSONAL BELONGINGS WITH IN REACH- HOURLY ROUNDS IN PLACE R/T SAFETY/NEEDS- ALL NEEDS MET AT THIS TIME
[2020-11-09 12:00] VITALS: BP 138/86
[2020-11-09 16:00] VITALS: BP 136/76
[2020-11-09 20:00] VITALS: BP 170/91
--- NOTE | 2020-11-09 20:00 | NUR ---
RECEIVED REPORT AND ASSUMED CARE OF PT, ASSESSMENT COMPLETED. PT SITTING UP IN BED WITH RT LEG HANGING OVER THE EDGE. ENCOURAGED TO KEEP LEG IN BED OR ELEVATED BECAUSE OF THE SWELLING. STATES HE FEELS SWOLLEN ALL OVER. O2 ON AT 3L/NC, SOA WITH ACTIVITY. TELEMETRY ON SHOWING SR. WILL CONT TO MONITOR AND ASSIST NEEDED.
[2020-11-10] VITALS: BP 112/92
[2020-11-10 04:00] VITALS: BP 148/94
[2020-11-10 04:16] LABS: HEMATOCRIT 27.3 % (42.0-52.0); MCH 31.7 pg (26.0-34.0); MCV 95.9 fL (80.0-100.0); MPV 7.1 fl. (7.2-11.1); NUCLEATED RBCS 0 /100WBC; PLATELET COUNT* 281 thou/uL (150-400); RBC 2.84 mil/uL (4.50-6.00); RDW-CV 19.1 % (10.5-14.5); WBC 14.3 thou/uL (4.0-11.0)
[2020-11-10 04:29] LABS: CALCIUM 9.5 mg/dL (8.5-10.1); CREATININE 1.3 mg/dL (0.6-1.3); POTASSIUM 5.1 mmol/L (3.5-5.1); TOTAL BILIRUBIN 0.2 mg/dL (<0.1-1.0); TOTAL PROTEIN 6.1 g/dL (6.4-8.2)
[2020-11-10 05:54] LABS: ABSOLUTE MONOCYTES 1.3 thou/uL (0.0-1.2); ANISOCYTOSIS 1+; PLATELET ESTIMATE ADEQUATE; POIKILOCYTOSIS 1+
--- NOTE | 2020-11-10 06:30 | NUR ---
AWAKE MOST OF NIGHT, NO CHANGES IN ASSESSMENT. TELEMETRY CONT TO SHOW SR. HS GOAL OF SAFETY ACHIEVED BUT NOT REST. HOURLY ROUNDING OBSERVED.
[2020-11-10 08:31] VITALS: BP 175/71
--- NOTE | 2020-11-10 11:11 | NUR ---
ASSUMED CARE OF PT THIS AM AROUND 07- MARINE PIPEFITTER HELPER IN PLACE ORDERED, TRACING SR WITH PAC- UPON ASSESSMENT PT NOTED TO BE RESTING IN BED WITH EYES CLOSED- PT A&O X4- CONT OF BOWEL AND BLADDER- UP AD-MACIEL TO BED SIDE COMMODE-COURSE/WHEEZY LUNG SOUNDS NOTED WITH WET COUGH- VSS, O2 SAT 96% ON 3L VIA NC THIS AM- ABD SOFT/OBESE/NON-TENDER, BS X4 QUADS- LAST BM REPORTED 11/09/20- IV NOTED TO RIGHT THUMB/FA INTACT AND SL- PO ABTN GIVEN THIS AM PRESCRIBED- RLE 3+EDEMA WITH PINKNESS; LLE +1- SCHEDULED HYDROCODONE GIVEN THIS AM PRESCRIBED R/T CHRONIC BACK.NECK.KNEE PAIN- LIDOCAINE PATCH TO LOWER BACK NECK- CALL LIGHT AND PERSONAL BELONGINGS WITH IN REACH- ALL NEEDS MET AT THIS TIME
[2020-11-10 15:03] VITALS: BP 156/75
[2020-11-10 19:13] VITALS: BP 161/80
[2020-11-10 20:00] VITALS: BP 168/87
[2020-11-11 01:28] VITALS: BP 177/69
--- NOTE | 2020-11-11 06:39 | NUR ---
AWAKE FROM APPROX 3 AM. VOIDING WELL PER URINAL. NO CHANGE IN ASSESSMENT. TELEMETRY SHOWING SR. PT HAS CONSTANT BACK/NECK PAIN. PO MEDS EFFECTIVE FOR THIS. HS GOALS OF REST AND SAFETY ACHIEVED. HOURLY ROUNDING OBSERVED.
[2020-11-11 06:45] VITALS: BP 155/75
--- NOTE | 2020-11-11 07:25 | NUR ---
CHANGE OF SHIFT BEDSIDE REPORT GIVEN PATIENT SEEN AT BEDSIDE, IN BED RESTING ASSUMED PATIENT CARE
[2020-11-11 08:00] VITALS: BP 172/90
[2020-11-11 12:00] VITALS: BP 151/89
--- NOTE | 2020-11-11 13:58 | NUR ---
Anticipate dc to home tomorrow with HH. Pt declining returning to SNF.
[2020-11-11 16:00] VITALS: BP 108/63
[2020-11-12 00:33] VITALS: BP 119/75
[2020-11-12 00:48] LABS: PROTIME 10.9 Seconds (9.20-11.50)
[2020-11-12 04:00] VITALS: BP 129/80
[2020-11-12 04:59] LABS: ABSOLUTE LYMPHOCYTES 0.7 thou/uL (0.8-5.3); ABSOLUTE MONOCYTES 0.6 thou/uL (0.0-1.2); ABSOLUTE NEUTROPHILS 13.4 thou/uL (1.6-8.1); BASOPHILS 0.1 %; HEMATOCRIT 27.8 % (42.0-52.0); HEMOGLOBIN 9.6 gm/dL (14.0-18.0); LYMPHOCYTES 4.5 %; MCH 32.8 pg (26.0-34.0); MCHC 34.7 g/dL (28.0-37.0); MCV 94.5 fL (80.0-100.0); MONOCYTES 3.8 %; MPV 7.1 fl. (7.2-11.1); NUCLEATED RBCS 0 /100WBC; PLATELET COUNT* 327 thou/uL (150-400); POLYS 91.6 %; RBC 2.94 mil/uL (4.50-6.00); RDW-CV 18.5 % (10.5-14.5); WBC 14.6 thou/uL (4.0-11.0)
[2020-11-12 05:42] LABS: ALBUMIN 2.9 g/dL (3.4-5.0); CALCIUM 9.2 mg/dL (8.5-10.1); CREATININE 1.2 mg/dL (0.6-1.3); POTASSIUM 5.1 mmol/L (3.5-5.1); TOTAL BILIRUBIN 0.2 mg/dL (<0.1-1.0)
[2020-11-12 08:00] VITALS: BP 160/83
--- NOTE | 2020-11-12 08:04 | NUR ---
ASSUMED PT CARE AT 1930. PT IS A/OX4. NO ACUTE CHANGES OCCURRED DURING THIS SHIFT. REPORT HAS BEEN GIVEN TO DAY SHIFT RN.
[2020-11-12 12:00] VITALS: BP 114/81
[2020-11-12 13:22] LABS: BE 4.2 mmol/L (-2 to +3); PCO2 VENOUS 46.9 mmHg (41.0-51.0); PO2 VENOUS 80.5 mmHg (35.0-45.0)
--- NOTE | 2020-11-12 14:24 | NUR ---
Anticipate dc in a few days. Pt's cultures are growing psuedomonas. ID following. Plan home with HH at co.
[2020-11-12 16:10] VITALS: BP 115/72
--- NOTE | 2020-11-12 17:58 | NUR ---
PATIENT RESTING IN BED, WATCHING TV. MIDLINE TO RIGHT UPPER ARM WITH NORMAL SALINE INFUSING AT 70ML/HR. 99% ON 3L NASAL CANNULA. DRESSING TO RIGHT FOREARM, C/D/I. BLOOD SUGARS MONITORED THROUGHOUT SHIFT. INSULIN GIVEN ORDERED/NEDDED. 3+ EDEMA TO RIGHT LOWER LEG, NON-PITTING. 1+ EDEMA TO LEFT LOWER LEG, NON-PITTING. INFECTIOUS DISEASE CONSULT DONE VIA ZOOM MEETING. LATIC ACID LOW, LAB VALUES TEXT TO DR. PEARL. LUNG SOUNDS DIMINISHED AND COARSE. PRODUCTIVE, LOOSE COUGH WITH OCCASIONAL SPUTUM PER PATIENT. BED IN LOW/LOCKED POSITION. CALL LIGHT WITHIN REACH. ALL QUESTIONS AND CONCERNS ADDRESSED.
[2020-11-12 20:00] VITALS: BP 149/84
--- NOTE | 2020-11-12 20:00 | NUR ---
RECEIVED REPORT AND ASSUMED CARE OF PT, ASSESSMENT COMPLETED. PT SITTING UP IN CHAIR. C/O BUTTOCK PAIN DUE TO SITTING SO MUCH, WAFFLE CUSHION PLACED IN CHAIR. O2 ON AT 3L/NC, SOA WITH ACTIVITY, WHEEZING NOTED. TELEMETRY ON SHOWING SR. WILL CONT TO MONITOR AND ASSIST NEEDED.
[2020-11-13 00:05] VITALS: BP 139/78
[2020-11-13 04:30] VITALS: BP 127/69
[2020-11-13 04:56] LABS: ABSOLUTE EOSINOPHILS 0.1 thou/uL (0.0-0.7); ABSOLUTE LYMPHOCYTES 0.8 thou/uL (0.8-5.3); ABSOLUTE MONOCYTES 0.9 thou/uL (0.0-1.2); ABSOLUTE NEUTROPHILS 14.5 thou/uL (1.6-8.1); BASOPHILS 0.3 %; EOSINOPHILS 0.3 %; HEMATOCRIT 28.8 % (42.0-52.0); HEMOGLOBIN 9.6 gm/dL (14.0-18.0); LYMPHOCYTES 4.6 %; MCH 32.2 pg (26.0-34.0); MCHC 33.5 g/dL (28.0-37.0); MCV 96.1 fL (80.0-100.0); MONOCYTES 5.3 %; MPV 7.5 fl. (7.2-11.1); NUCLEATED RBCS 0 /100WBC; PLATELET COUNT* 367 thou/uL (150-400); POLYS 89.5 %; RDW-CV 18.5 % (10.5-14.5); WBC 16.2 thou/uL (4.0-11.0)
[2020-11-13 05:13] LABS: ALBUMIN 2.9 g/dL (3.4-5.0); CREATININE 1.2 mg/dL (0.6-1.3); POTASSIUM 5.1 mmol/L (3.5-5.1); TOTAL BILIRUBIN 0.2 mg/dL (<0.1-1.0)
--- NOTE | 2020-11-13 06:30 | NUR ---
SLEPT WELL TONIGHT COMPARED TO OTHER NIGHTS. NO CHANGE IN ASSESSMENT. TELEMETRY CONT TO SHOW SR. HS GOALS OF REST AND SAFETY ACHIEVED. HOURLY ROUNDING OBSERVED.
[2020-11-13 08:15] VITALS: BP 169/77
--- NOTE | 2020-11-13 10:53 | NUR ---
Nutrition: Pt admitted with COPD exac. Seen for LOS. Pt stated he is eating fine. Heart Healthy diet. He has no nutrition questions today. He said, "I got my sugars down, so I'm good." WT: 289#. BG 180-142, alb 2.9, prealb 34.2. No nutrition interventions needed at this time. Low risk.
[2020-11-13 11:50] VITALS: BP 145/76
--- NOTE | 2020-11-13 14:03 | NUR ---
Anticipate dc in a few days. Pt on ivabx through 11/16. Plan dc home with HH
--- NOTE | 2020-11-13 15:42 | NUR ---
RIGHT BASILIC VESSEL ACCESSED FOR 4 IRAQI SINGLE LUMEN PICC. LINE PRE-TRIMMED TO 41CM AND ADVANCED TO THE ZERO BEENA WITH NO RESISTANCE MET. UPPER ARM CIRCUMFERENCE ABOVE INSERTION SITE= 13 1/2". SHERLOCK MAGNETY AND 3CG CONFIRMATION OF TIP TERMINATION AT THE CAVOATRIAL JUNCTION APPRECIATED. GUIDEWIRE REMOVED, LINE FLUSHED AND INSERTION SITE DREESSED. REPORT GIVEN TO ANGEL LEA.
[2020-11-13 16:00] VITALS: BP 122/88
[2020-11-14] VITALS (7 sets, daily range): BP systolic 119–147; BP diastolic 63–87
[2020-11-14 07:01] LABS: HEMATOCRIT 28.9 % (42.0-52.0); HEMOGLOBIN 9.6 gm/dL (14.0-18.0); MCH 31.9 pg (26.0-34.0); MCHC 33.3 g/dL (28.0-37.0); MCV 95.8 fL (80.0-100.0); MPV 7.4 fl. (7.2-11.1); RBC 3.02 mil/uL (4.50-6.00); RDW-CV 18.4 % (10.5-14.5); WBC 17.8 thou/uL (4.0-11.0)
[2020-11-14 07:16] LABS: CALCIUM 9.2 mg/dL (8.5-10.1); CREATININE 1.1 mg/dL (0.6-1.3); POTASSIUM 5.2 mmol/L (3.5-5.1)
--- NOTE | 2020-11-14 13:34 | NUR ---
Pt to dc to home with [facility] on 11/16 post last ivabx does. H&P, facesheet and HH orders will need to be faxed to [phone]
[2020-11-15] VITALS: BP 130/66
[2020-11-15 04:26] VITALS: BP 108/72
--- NOTE | 2020-11-15 04:32 | NUR ---
ASSUMED CARE AT 1920H, ON NC AT 3LPM AND TOLERATED. STILL WITH LE EDEMA. PT WENT TO HAVE HIS SHOWER, KEPT SAFE. NO DISTRESS. PT SLEPT ON AND OFF. CONTINUE MONITORING AND TOWARDS GOALS.
[2020-11-15 05:27] LABS: HEMATOCRIT 27.4 % (42.0-52.0); HEMOGLOBIN 9.2 gm/dL (14.0-18.0); MCH 32.2 pg (26.0-34.0); MCHC 33.5 g/dL (28.0-37.0); MCV 96.2 fL (80.0-100.0); MPV 7.5 fl. (7.2-11.1); RBC 2.85 mil/uL (4.50-6.00); RDW-CV 18.5 % (10.5-14.5); WBC 18.3 thou/uL (4.0-11.0)
[2020-11-15 05:59] LABS: CALCIUM 8.7 mg/dL (8.5-10.1); CREATININE 1.1 mg/dL (0.6-1.3); POTASSIUM 5.1 mmol/L (3.5-5.1)
[2020-11-15 08:00] VITALS: BP 131/73
[2020-11-15 12:00] VITALS: BP 137/66
[2020-11-15 16:00] VITALS: BP 132/68
[2020-11-16 00:11] VITALS: BP 129/45
[2020-11-16 03:46] VITALS: BP 84/58
[2020-11-16 05:08] LABS: HEMATOCRIT 28.8 % (42.0-52.0); HEMOGLOBIN 9.6 gm/dL (14.0-18.0); MCH 32.2 pg (26.0-34.0); MCHC 33.3 g/dL (28.0-37.0); MCV 96.9 fL (80.0-100.0); MPV 7.5 fl. (7.2-11.1); RBC 2.97 mil/uL (4.50-6.00); RDW-CV 18.3 % (10.5-14.5); WBC 22.3 thou/uL (4.0-11.0)
[2020-11-16 05:13] LABS: CALCIUM 8.6 mg/dL (8.5-10.1); CREATININE 1.4 mg/dL (0.6-1.3)
[2020-11-16 08:00] VITALS: BP 102/40
[2020-11-16 16:00] VITALS: BP 115/89
[2020-11-16 20:00] VITALS: BP 124/66
[2020-11-17] VITALS (8 sets, daily range): BP systolic 123–146; BP diastolic 63–91
[2020-11-17 07:28] LABS: HEMATOCRIT 28.3 % (42.0-52.0); HEMOGLOBIN 9.4 gm/dL (14.0-18.0); MCH 31.8 pg (26.0-34.0); MCHC 33.1 g/dL (28.0-37.0); MCV 96.2 fL (80.0-100.0); MPV 7.7 fl. (7.2-11.1); RBC 2.94 mil/uL (4.50-6.00); RDW-CV 18.6 % (10.5-14.5); WBC 21.7 thou/uL (4.0-11.0)
[2020-11-17 07:51] LABS: CALCIUM 8.7 mg/dL (8.5-10.1); CREATININE 1.5 mg/dL (0.6-1.3); POTASSIUM 4.9 mmol/L (3.5-5.1)
[2020-11-17] MEDS ORDERED: LIDOPATCH1 EACH TOP ×2 (09:27)
[2020-11-17] MEDS ORDERED: NORCO 10-325 T1 EACH PO ×2 (09:29)
--- NOTE | 2020-11-17 13:49 | NUR ---
Pt discharging to home today with ivabx through [facility]. Per [facility], cost will be 3.70/week, Pt will be on thru 11/21. Pari from [facility] will be out at 2pm to complete teach. Faxed dc orders and referral to [facility]. Dtr in room and will assist Pt at home with ivabx.
--- NOTE | 2020-11-17 16:27 | NUR ---
PT A&OX4 VSS. PTCONTINENT OF B/B. URINALS AT BEDSIDE. UP SBA WITH WALKER. PICC TO MATTHEW PATENT, DRESSING CHANGED THIS SHIFT PRIOR TO PT DISCHARGING TO HOME. ACCUCHECKS, INSULIN ADMINISTERED INDICATED. EDEMA TO BLE, MORE SIGNIFICANT IN RLE. SCHEDULED HYDROCODONE ADMINISTERED FOR CHRONIC PAIN. PT ASSISTED TO DRESS BY DGTR. PT LEFT UNIT IN WHEELCHAIR TRANSPORTED BY NURSING STAFF. PT AND DGTR STATE UNDERSTANDING OF DC INSTRUCTIONS, FOLLOW UP APPOINTMENTS AND RX PROVIDED.
--- NOTE | 2020-11-23 19:44 | CON ---
[address] [address] CONSULTATION Name: ISHAAKI Ariane Room: [address] IN M.R.#: [id number] Admission: 11/05/20 Attend Phys: Darryl Sutherland Discharge: 11/17/20 Date of : 62 Report #: [id number] THIS REPORT FOR: cc: ANDREW BOWSER MD, HEATHER L. MD Khosla, Parveen K. MD ~ DOC #: [id number] Richard Fuentes MD DATE OF CONSULTATION: 11/06/2020 HISTORY OF PRESENT ILLNESS: This 60-year-old male patient was seen by me with pretty unusual symptoms. He gives history in piecemeal fashion and some of the history is incomplete and unclear. He said he had pneumonia and he was in a longterm. He claims they overdosed him on the medication and since he woke up, he had episodes where he cannot see some time, he can read and some time he cannot and after that he has big jerking in the body. He did have some hypoxia when he came in, but he is better from that now. He had an EEG, which we will review once we find that. He said he did not get his pain medication, but he just got pain medication, which he likes. REVIEW OF SYSTEMS: Positive for COPD. He said he also had a pneumonia. He was in rehabilitation. He has a history of hypertension, chronic pain, congestive heart failure, tobacco abuse. Record indicates he has a history of potential medical noncompliance and recurrent hospitalization. No family member is present here. His BUN and creatinine are high. I do not know what his baseline is. He had a prior history of vomiting and renal insufficiency, peptic ulcer disease, neurocardiogenic syncope, neck strain, near syncope, electrolyte abnormality and hypertension. This was his relevant 14-point review of system. PAST MEDICAL HISTORY: Positive for chronic back pain. FAMILY HISTORY: He denies any prior history of stroke. SOCIAL HISTORY: He has a history of smoking. PHYSICAL EXAMINATION: NEUROLOGIC: He is alert, responsive, able to follow simple command. His speech looks intact. He thinks his memory is at baseline. Cranial nerve examination was somewhat unusual. He says he can read now, but it is intermittent. He does visual field in somewhat unusual fashion. Cranial nerve examination, rest of them was unremarkable. He moves all 4 extremities. Strength checking is difficulty. He says he can touch on both sides. His reflexes are symmetrical. He does not appear to have any cerebellar sign. CARDIAC: Unremarkable. No respiratory difficulty. He is morbidly obese. NECK: There is no thyroid mass. There [place] [id number] CONSULTATION Name: AKI VIEIRA Room: [address] IN [facility]#: [id number] Admission: 11/05/20 Attend Phys: Darryl Sutherland Discharge: 11/17/20 Date of : 62 Report #: [id number] LUNGS: He does appear to be short of breath. VITAL SIGNS: His blood pressure is 140/73, pulse is 83, temperature is 97.4. LABORATORY DATA: He is anemic with a hemoglobin of 9.5. His GFR is low at 41. His creatinine was actually even higher when he came in. IMPRESSION: Pretty unusual patient. I do not know whether his primary problem is narcotic related, neurological, or ophthalmological. I will get an MRI done to look for any neurological problem. I do not know ophthalmology consult is reliable or not, but I put one and see if they can see him. Otherwise, we also need to see if his symptoms subsides after starting him on his regular narcotics, which he said he is getting now. Dr. Jurado will follow up this patient with you from tomorrow. Richard Fuentes MD PK/ARIELLA <ELECTRONICALLY SIGNED> By: Richard Fuentes MD 11/23/20 1944 1403 1852Pclyde Fuentes MD /shireen
--- NOTE | 2020-11-23 19:44 | EEG ---
[address] [address] EEG STUDY REPORT Name: AKI VIEIRA Room: [address] IN M.R.#: [id number] Admission: 11/05/20 Attend Phys: Darryl Sutherland Discharge: 11/17/20 Date of : 62 Report #: [id number] THIS REPORT FOR: cc: ANDREW BOWSER MD, HEATHER L. MD Khosla, Parveen K. MD ~ DOC #: [id number] Richard Fuentes MD DATE OF SERVICE: 11/06/2020 This patient is being evaluated for episodes of jerking. EEG was done by placing the electrode by standard 10-20 system of electrode placement. This patient's both referential and sequential montages were used for recording. Background activity does go up to about 9 Hz and 30 microvolt. Most of the time is much slower. Patient goes to sleep and that is associated with bilateral slowing and vertex sharp waves. Throughout the record, no active epileptiform activity was noticed. IMPRESSION: This patient's electroencephalogram is intermixed with theta range slowing on both sides. There is a nonspecific abnormality which can occur with encephalopathy, effect of psychotropic medication, dementia, etc. Clinical correlation is recommended. Richard Fuentes MD PK/MERE <ELECTRONICALLY SIGNED> By: Richard Fuentes MD 11/23/20 1944 1735 1808Richard Fuentes MD /nt
== END 2020-11-17 16:04 | disposition home health service (06) | DRG 917 ==
LOC: M.ERS 15:36 → M.2W 17:17 → M.TBA-ER 17:17 → M.2W 19:26
PROVIDERS: Family Medicine; Internal Medicine; ADMIT Internal Medicine; ATTEND Internal Medicine
DX: T40.691A Poisoning by other narcotics, accidental (unintentional), initial encounter (principal); A41.9 Sepsis, unspecified organism; G93.41 Metabolic encephalopathy; I50.33 Acute on chronic diastolic (congestive) heart failure; J96.21 Acute and chronic respiratory failure with hypoxia; J44.1 Chronic obstructive pulmonary disease with (acute) exacerbation; E24.2 Drug-induced Cushing's syndrome; L03.115 Cellulitis of right lower limb; I13.0 Hypertensive heart and chronic kidney disease with heart failure and stage 1 through stage 4 chronic kidney disease, or unspecified chronic kidney disease; N17.9 Acute kidney failure, unspecified; T50.995A Adverse effect of other drugs, medicaments and biological substances, initial encounter; N18.9 Chronic kidney disease, unspecified; M48.02 Spinal stenosis, cervical region; E11.42 Type 2 diabetes mellitus with diabetic polyneuropathy; G89.29 Other chronic pain; G47.33 Obstructive sleep apnea (adult) (pediatric); E66.9 Obesity, unspecified; Z20.822 Contact with and (suspected) exposure to COVID-19; Z79.899 Other long term (current) drug therapy; Z91.012 Allergy to eggs; Y92.89 Other specified places as the place of occurrence of the external cause; Z87.891 Personal history of nicotine dependence; Z79.84 Long term (current) use of oral hypoglycemic drugs; Z72.89 Other problems related to lifestyle; Z68.39 Body mass index [BMI] 39.0-39.9, adult

== ENCOUNTER 2020-11-19 20:42 | Emergency (ER) | payer OTHER, MEDICAID ==
[~2020-11-19] VITALS: Ht 182.9 cm; Wt 137.0 kg
[2020-11-19 20:53] VITALS: BP 98/50
[2020-11-19 21:40] LABS: HEMATOCRIT 26.1 % (42.0-52.0); HEMOGLOBIN 8.6 gm/dL (14.0-18.0); MCH 31.5 pg (26.0-34.0); MCHC 32.9 g/dL (28.0-37.0); MCV 95.6 fL (80.0-100.0); MPV 7.5 fl. (7.2-11.1); NUCLEATED RBCS 0 /100WBC; PLATELET COUNT* 282 thou/uL (150-400); RBC 2.73 mil/uL (4.50-6.00); RDW-CV 18.8 % (10.5-14.5); WBC 21.6 thou/uL (4.0-11.0)
[2020-11-19 21:42] LABS: BE 2.1 mmol/L (-2 to +3); PCO2 42.6 mmHg (35.0-45.0); PO2 67.7 mmHg (75.0-100.0); pH 7.417 (7.340-7.450)
[2020-11-19 22:02] LABS: CALCIUM 8.4 mg/dL (8.5-10.1); POTASSIUM 4.9 mmol/L (3.5-5.1)
[2020-11-19 22:06] LABS: ALBUMIN 2.7 g/dL (3.4-5.0); TOTAL BILIRUBIN 0.3 mg/dL (<0.1-1.0); TOTAL PROTEIN 5.8 g/dL (6.4-8.2)
[2020-11-19 22:16] LABS: ABSOLUTE LYMPHOCYTES 4.1 thou/uL (0.8-5.3); ABSOLUTE MONOCYTES 2.6 thou/uL (0.0-1.2); ABSOLUTE NEUTROPHILS 14.9 thou/uL (1.6-8.1); MYELOCYTES 2 %; PLATELET ESTIMATE ADEQUATE
[2020-11-19 22:17] LABS: ANISOCYTOSIS Occasional; HYPOCHROMASIA Occasional; MACROCYTES Occasional; MICROCYTES Occasional
--- NOTE | 2020-11-20 11:47 | EKG ---
[place] [address] ELECTROCARDIOGRAM REPORT Name: AKI VIEIRA Room: [facility]#: [id number] Admission: 11/19/20 Attend Phys: Discharge: 11/19/20 Date of : 62 Date of Service: 11/19/202054 Report #: [id number] THIS REPORT FOR: //name// [facility] ED Test Date: 2020-11-19 Test Time: 20:55:59 Pat Name: AKI VIEIRA Department: Room: Gender: Fast Food Cook: UNKNOWN : 1960 Requested By: Issa Hoffmann Order Number: [id number] MD: Tone Ford Measurements Intervals [place] Rate: 113 P: 73 AR: 143 QRS: 68 QRSD: 87 T: 61 QT: 306 QTc: 420 Interpretive Statements Sinus tachycardia Ventricular premature complex Compared to ECG 11/05/2020 15:56:12 Sinus tachycardia now present Electronically Signed On 11-20-2020 11:46:52 CDT by Tone Ford [email or web address] <ELECTRONICALLY SIGNED> By: Tone Ford MD, [facility] 11/20/20 1146 54 54 Tone Ford MD, [facility] /EPI
== END 2020-11-19 23:35 | disposition home or self-care (01) ==
LOC: M.ERS 20:42
PROVIDERS: Nurse Practitioner
DX: M25.561 Pain in right knee (principal); M79.18 Myalgia, other site; J44.9 Chronic obstructive pulmonary disease, unspecified; G89.29 Other chronic pain; Z87.891 Personal history of nicotine dependence; Z79.899 Other long term (current) drug therapy; Z91.012 Allergy to eggs